=== PATIENT | female | born 1970 | race Caucasian/White ===

== ENCOUNTER 2016-05-10 12:54 | Emergency (ER) | payer OTHER ==
[~2016-05-10] VITALS: Ht 165.1 cm; Wt 104.0 kg
[~2016-05-10 12:54] MED LIST: ANT25 PO; DEXT-163 PO; KFL/250 PO; ONDA4TAB10 SL; SALI1SPR3
[2016-05-10 12:55] VITALS: TEMP 37.1; Ht 165.1 cm; Wt 104.0 kg
--- NOTE | 2016-05-10 13:15 | EMERGENCY ROOM VISIT NOTE ---
History Report prepared by Rosalie: Maryan Menezes Under the Supervision of: Dr. David Ornelas M.D. First contact with patient: 13:02 Chief Complaint: ABDOMINAL PAIN Stated Complaint: BURNING IN STOMACH/BLADDER, FACIAL REDNESS History of Present Illness The patient is a 45 year old female who presents to the Emergency Room with complaints of persistent abdominal pain that began several days ago. She currently rates her discomfort as a 6/10 in severity and describes her discomfort as a burning. The patient states that she was recently placed on Macrobid for a UTI. She states that since she has been on the antibiotics, she has been experiencing abdominal burning that radiates from her abdomen up through her nose. The patient states that she has been on 5-6 different antibiotics recently. She additionally notes facial redness. The patient states that occasionally she experiences the discomfort after eating. She states that she has been taking medications for the past 3-4 days for GERD. The patient denies any history of a hysterectomy and notes that she still is having normal menstrual cycles. Source of History: patient Onset: several days Position: abdomen Symptom Intensity: 6/10 Quality: burning Timing: other (persistent) Modifying Factors (Worsening): eating Note: Associated Symptoms: facial redness Review of Systems All systems have been listed, reviewed, and are negative other than those previously mentioned. Please see Additional Medical History Sheet. Past Medical & Surgical Medical Problems: (1) Cervical strain (2) UTI (urinary tract infection) Family History No pertinent family history Social History Smoking Status: Former Smoker Marital Status: single Occupation Status: unemployed Current/Historical Medications Scheduled Nitrofurantoin Monohyd Macrocr (Macrobid), 100 MG PO BID Omeprazole (Prilosec), 20 MG PO DAILY Scheduled PRN Diclofenac (Voltaren), 75 MG PO BID PRN for Pain Meclizine HCl (Meclizine HCl), 25 MG PO TID PRN for Dizziness or Vertigo Ondasetron Odt (Zofran Odt), 4 MG SL Q4 PRN for nausea Saline (Saline Nasal [place]), 1 SPRAY NA UD PRN for Nasal Congestion Allergies Coded Allergies: Ciprofloxacin (Unverified Allergy, Severe, DIZZY, 04/26/16) Fluticasone (Unverified Allergy, Severe, SEVERE BURNING, 04/26/16) Physical Exam Vital Signs Date Time Temp Pulse Resp B/P Pulse Ox O2 Delivery O2 Flow Rate FiO2 05/10/16 14:51 86 18 127/81 100 05/10/16 12:55 37.1 88 18 158/96 94 Room Air Physical Exam GENERAL: Patient awake, alert, oriented x 3. Patient follows commands. Patient does not appear toxic. Patient is adequately hydrated and well- nourished. SKIN: No erythema, pallor, cyanosis or rash HEENT: Normal head, pupils equal, reactive to light and accommodation. LUNGS: Clear to auscultation. No wheezes, no rales, no rhonchi. HEART: No murmurs. No gallops. No rubs ABDOMEN: Obese, soft, nontender. No masses, no rebound, no hepatomegaly or splenomegaly. EXTREMITIES: No signs of trauma or infection. NEUROLOGIC: Cranial nerves II-XII within normal limits. No gross motor sensory function deficits. Medical Decision & Procedures Laboratory Results 05/10/16 13:21 05/10/16 13:21 Test 05/10/16 13:15 05/10/16 13:21 Urine Color YELLOW Urine Appearance CLOUDY (CLEAR) Urine pH 5.0 (4.5-7.5) Urine Specific [place] 1.002 (1.000-1.030) Urine Protein NEG (NEG) Urine Glucose (UA) NEG (NEG) Urine Ketones 1+ (NEG) Urine Occult Blood 2+ (NEG) Urine Nitrite NEG (NEG) Urine Bilirubin NEG (NEG) Urine Urobilinogen NEG (NEG) Urine Leukocyte Esterase NEG (NEG) Urine WBC (Auto) 1-5 /hpf (0-5) Urine RBC (Auto) 0-4 /hpf (0-4) Urine Hyaline Casts (Auto) 0 /lpf (0-5) Urine Epithelial Cells (Auto) >30 /lpf (0-5) Urine Bacteria (Auto) NEG (NEG) Urine Test NEG (NEG) Red Blood Count 4.51 M/uL (4.2-5.4) Mean Corpuscular Volume 92.9 fL (80-100) Mean Corpuscular Hemoglobin 32.2 pg (25-34) Mean Corpuscular Hemoglobin Concent 34.6 g/dl (32-36) RDW Standard Deviation 46.0 fL (36.4-46.3) RDW Coefficient of Variation 13.5 % (11.5-14.5) Mean Platelet Volume 9.7 fL (7.4-10.4) Anion Gap 10.0 mmol/L (3-11) Est Creatinine Clear Calc Drug Dose 94.5 ml/min Estimated GFR () 90.1 Estimated GFR (Non- 77.7 BUN/Creatinine Ratio 11.0 (10-20) Calcium Level 9.1 mg/dl (8.5-10.1) Lipase 141 U/L (73-393) Laboratory results as stated above per my review. ED Course 1302: Past medical records reviewed. The patient was evaluated in room A3. A complete history and physical examination was performed. 1432: I reevaluated the patient and she is resting comfortably. I discussed the exam findings with her and I discussed the treatment plan. She verbalized complete understanding and agreement. She is ready to go home. Medical Decision Nurses notes reviewed. Medical history sheet reviewed. Differential diagnosis includes but is not limited to: GERD, pancreatitis, UTI. Multiple labs and urinalysis were obtained. Please see above. The patient does not appear to have an active urinary tract infection. She was instructed to complete the course of nitrofurantoin. I believe the patient's symptoms are most related to GERD. The patient is currently taking omeprazole and will continue that medication. She was told that she can take liquid Mylanta or Maalox in addition if symptoms persist. The patient was also instructed to follow-up with family physician. Impression Primary Impression: GERD (gastroesophageal reflux disease) Scribe Attestation The scribe's documentation has been prepared under my direction and personally reviewed by me in its entirety. I confirm that the note above accurately reflects all work, treatment, procedures, and medical decision making performed by me. Departure Information Dispostion Home / Self-Care Referrals Seth Rodriguez M.D. (PCP) Forms Call Back Authorization, HOME CARE DOCUMENTATION FORM, IMPORTANT VISIT INFORMATION, [facility] Patient Instructions A Signature Page Additional Instructions 1 tablespoon of Mylanta II or Maalox Plus between meals and not with any other medications. Follow-up with your family physician within the next 14 days. Increase omeprazole to twice a day. Do not take Voltaren/Diclofenac.
[2016-05-10 13:28] LABS: URINE APPEARANCE CLOUDY (CLEAR); URINE BILIRUBIN NEG (NEG); URINE COLOR YELLOW; URINE EPITHELIAL CELL AUTO >30 /lpf (0-5); URINE NITRITE NEG (NEG); URINE SPECIFIC GRAVITY 1.002 (1.000-1.030); UROBILINOGEN NEG (NEG); ZZUR CULT IF INDIC CLEAN CATCH NO
[2016-05-10 13:29] LABS: MANUAL MICROSCOPIC REQUIRED? NO; REVIEW REQ? NO
[2016-05-10] MEDS ORDERED: NITR-5 PO (13:30)
[2016-05-10 13:31] LABS: HEMATOCRIT 41.9 % (37-47); MEAN CELL VOLUME 92.9 fL (80-100); MEAN CORPUSCULAR HEMOGLOBIN 32.2 pg (25-34); MEAN CORPUSCULAR HGB CONC 34.6 g/dl (32-36); MEAN PLATELET VOLUME 9.7 fL (7.4-10.4); PLATELET COUNT 306 K/uL (130-400); RED BLOOD COUNT 4.51 M/uL (4.2-5.4); WHITE BLOOD COUNT 9.32 K/uL (4.8-10.8)
[2016-05-10 13:49] LABS: CALCIUM 9.1 mg/dl (8.5-10.1); CREATININE 0.89 mg/dl (0.60-1.20); POTASSIUM 3.7 mmol/L (3.5-5.1)
[2016-05-10 14:51] VITALS: BP 127/81; PULSE 86; O2SAT 100
[2016-05-16] MEDS ORDERED: PRLSR20 PO (10:55)
[2016-05-16] MEDS ORDERED: DICL-201 PO (16:35)
[2016-12-01] MEDS ORDERED: LPT10 PO (12:46)
== END 2016-05-10 14:53 | disposition home or self-care (01) ==
LOC: C.EDB 12:54 → C.EDA 14:53
DX: R10.9 Unspecified abdominal pain (principal); K21.9 Gastro-esophageal reflux disease without esophagitis; Z87.891 Personal history of nicotine dependence

== ENCOUNTER 2016-05-16 19:23 | Emergency (ER) | payer OTHER ==
[~2016-05-16] VITALS: Ht 162.6 cm; Wt 106.0 kg
[~2016-05-16 19:23] MED LIST changes: -DEXT-163 PO; +DICL-201 PO; -KFL/250 PO; +NITR-5 PO; +PRLSR20 PO
[2016-05-16 19:25] VITALS: TEMP 36.7; Ht 162.6 cm; Wt 106.0 kg
[2016-05-16] MEDS ORDERED: SODIUM CHLORIDE 0.9% 1000ML 1,000 ML IV STA (19:36)
[2016-05-16] MEDS ORDERED: KETOROLAC TROMETHAMINE 30 MG/ML VIAL IV STA (19:36)
[2016-05-16 19:53] LABS: BASO % 0.3 %; BASO ABS # 0.03 K/uL (0-0.2); COMPLETE YES; EOS % 1.4 %; IG% 0.6 %; LYMPH % 18.6 %; LYMPH ABS # 1.93 K/uL (1.2-3.4); MEAN CELL VOLUME 93.7 fL (80-100); MEAN CORPUSCULAR HEMOGLOBIN 31.4 pg (25-34); MEAN CORPUSCULAR HGB CONC 33.5 g/dl (32-36); MEAN PLATELET VOLUME 9.6 fL (7.4-10.4); MONO % 13.2 %; NEUT % 65.9 %; PLATELET COUNT 276 K/uL (130-400); RED BLOOD COUNT 4.27 M/uL (4.2-5.4); WHITE BLOOD COUNT 10.35 K/uL (4.8-10.8)
[2016-05-16 20:11] LABS: BUN/CREATININE RATIO 22.1 (10-20); CALCIUM 8.6 mg/dl (8.5-10.1); CREATININE 0.91 mg/dl (0.60-1.20); POTASSIUM 4.4 mmol/L (3.5-5.1)
[2016-05-16] MEDS ORDERED: ONDA4TAB46 PO (20:26)
[2016-05-16] MEDS ORDERED: MECL1TAB42 PO (20:26)
[2016-05-16] MEDS ORDERED: ACET-1256 PO (20:27)
[2016-05-16] MEDS ORDERED: NAPR1TAB9 PO (20:27)
[2016-05-16 20:33] LABS: URINE APPEARANCE CLEAR (CLEAR); URINE BILIRUBIN NEG (NEG); URINE COLOR YELLOW; URINE EPITHELIAL CELL AUTO 20-30 /lpf (0-5); URINE NITRITE NEG (NEG); URINE SPECIFIC GRAVITY 1.019 (1.000-1.030); UROBILINOGEN NEG (NEG); ZZUR CULT IF INDIC CLEAN CATCH NO
[2016-05-16 20:37] LABS: MANUAL MICROSCOPIC REQUIRED? NO; REVIEW REQ? NO
[2016-05-16] MEDS ORDERED: OPTIRAY 320 IV PRN (21:00)
--- NOTE | 2016-05-16 21:16 | DIAGNOSTIC IMAGING REPORT ---
CT SCAN OF THE ABDOMEN AND PELVIS WITH IV CONTRAST CLINICAL HISTORY: Left lower quadrant abdominal pain. Dysuria. COMPARISON STUDY: Abdominal CT dated 04/24/2015. TECHNIQUE: Following the IV administration of 93 cc of Optiray 320, CT scan of the abdomen and pelvis is performed from the lung bases to the proximal femora. Images are reviewed in the axial, sagittal, and coronal planes. IV contrast was administered without complication. Automated dose control exposure was utilized. The examination is degraded by large body habitus, and by streak artifact from the body wall abutting the CT gantry. CT DOSE: 834.31 mGy.cm FINDINGS: Lung bases: The heart is normal in size and without pericardial effusion. The lung bases are clear. Liver: The contrast-enhanced liver is enlarged, measuring 19.5 cm in length. The liver demonstrates diffusely diminished attenuation consistent with hepatic steatosis. There is no intrahepatic biliary ductal dilatation. The hepatic veins and portal veins are patent. Gallbladder: Unremarkable. Spleen: Normal in size and attenuation. Pancreas: Unremarkable. Adrenal glands: Unremarkable. Kidneys: The contrast enhanced kidneys are normal in size and without hydronephrosis. The kidneys enhance symmetrically. Abdominal vasculature: The abdominal aorta is normal in course and caliber. Bowel: The small bowel and colon are normal in course and caliber. There is mild diverticulosis of the descending colon without CT evidence of acute diverticulitis. There is mild fecal retention in the right colon. The appendix is well-visualized and normal. Peritoneum: There is no intraperitoneal free air or abdominal ascites. Lymphadenopathy: None. Pelvic viscera: The bladder, uterus, and adnexa are normal as visualized. There are small bilateral ovarian follicles. Skeletal structures: There is mild lumbosacral spondylosis. Sclerotic change is noted in the right sacroiliac joint. No lytic or blastic lesions are seen. IMPRESSION: 1. There are no acute infectious or inflammatory findings in the abdomen or pelvis. 2. Hepatomegaly and hepatic steatosis. 3. Mild colonic diverticulosis without CT evidence of acute diverticulitis. Electronically signed by: Manas Hernandez M.D. 05/16/2016 9:14 PM Dictated Date/Time: 05/16/2016 9:09 PM
[2016-05-16] MEDS ORDERED: CEPH500C PO (21:25)
[2016-05-16] MEDS ORDERED: CEPHALEXIN MONOHYDRATE 250 MG CAP PO ONE (21:30)
--- NOTE | 2016-05-16 21:41 | EMERGENCY ROOM VISIT NOTE ---
History Report prepared by Amyibcris: Yolanda Babb Under the Supervision of: Dr. Juni Acevedo D.O. First contact with patient: 19:28 Chief Complaint: ABDOMINAL PAIN Stated Complaint: ABDOMINAL PAIN, BURNING DURING URINATION Nursing Triage Summary: pt c/o abd pain and burning with urination, dx yesterday with yeast infection History of Present Illness The patient is a 45 year old female who presents to the Emergency Room with complaints of persistent abdominal pain for the past few days. She rates her pain as a 5/10. She reports she was diagnosed at a local [facility] clinic with a yeast infection yesterday. She was prescribed Diflucan, which she has been taking. She admits to dysuria and increased urinary frequency over the past few days. She denies any gross hematuria but admits to some white vaginal discharge. She reports she has also experienced diarrhea, and her last bowel movement was this morning. She denies any history of previous abdominal surgeries. The patient admits she has experienced urinary infections in the past and states her symptoms do feel similar. She admit to urinary urgency, frequency and dysuria. The patient denies any headache, change in vision, fevers, chest pain, shortness of breath, nausea, vomiting, melena or rashes. Source of History: patient Onset: few days APPLICATION LEAD Position: abdomen Symptom Intensity: 5/10 Timing: other (persistent) Associated Symptoms: + diarrhea, + urinary symptoms, No SOB, No chest pain, No fevers, No headache, No melena, No nausea, No rash, No vomiting Review of Systems See HPI for pertinent positives & negatives. A total of 10 systems reviewed and were otherwise negative. Past Medical & Surgical Medical Problems: (1) Cervical strain (2) UTI (urinary tract infection) Family History No pertinent family history Social History Smoking Status: Never Smoker Alcohol Use: none Drug Use: none Marital Status: single Housing Status: lives alone Occupation Status: unemployed Current/Historical Medications Scheduled Acetaminophen (Tylenol), 1,000 MG PO PRN UD Cephalexin Monohydrate (Keflex), 500 MG PO QID Naproxen (Aleve), 220 MG PO PRN UD Omeprazole (Prilosec), 20 MG PO DAILY Scheduled PRN Diclofenac (Voltaren), 75 MG PO BID PRN for Pain Meclizine Hcl (Meclizine Hcl), 1 TAB PO TID PRN for Dizziness or Vertigo Ondansetron Hcl (Zofran), 4 MG PO Q4H PRN for Nausea Allergies Coded Allergies: Ciprofloxacin (Unverified Allergy, Severe, DIZZY, 04/26/16) Fluticasone (Unverified Allergy, Severe, SEVERE BURNING, 04/26/16) Physical Exam Vital Signs Date Time Temp Pulse Resp B/P Pulse Ox O2 Delivery O2 Flow Rate FiO2 05/16/16 19:25 36.7 86 18 137/83 97 Room Air Physical Exam GENERAL: Patient is sitting up in bed, alert, disheveled appearing, well nourished, no distress, non-toxic EYE EXAM: normal conjunctiva OROPHARYNX: Patient is edentulous, no exudate, no erythema, lips, buccal mucosa , and tongue normal and mucous membranes are moist NECK: supple, no nuchal rigidity, no adenopathy, non-tender LUNGS: Clear to auscultation. Normal chest wall mechanics HEART: no murmurs, S1 normal and S2 normal ABDOMEN: abdomen soft, non-tender, normo-active bowel sounds, no masses, no rebound or guarding. BACK: Back is symmetrical on inspection and there is no deformity, no midline tenderness, no CVA tenderness. SKIN: no rashes and no bruising PELVIC: Normal external genitalia, normal vaginal mucosa, cervical os is closed without discharge, no adnexal tenderness. UPPER EXTREMITIES: upper extremities are grossly normal. LOWER EXTREMITIES: No pitting edema. NEURO EXAM: Normal sensorium, cranial nerves II-XII grossly intact, normal speech, no gross weakness of arms, no gross weakness of legs. Gross sensation intact. Medical Decision & Procedures ER Provider Diagnostic Interpretation: This CT scan was reviewed and interpreted by the radiologist and reviewed by myself. CT SCAN OF THE ABDOMEN AND PELVIS WITH IV CONTRAST IMPRESSION: 1. There are no acute infectious or inflammatory findings in the abdomen or pelvis. 2. Hepatomegaly and hepatic steatosis. 3. Mild colonic diverticulosis without CT evidence of acute diverticulitis. Electronically signed by: Manas Hernandez M.D. 05/16/2016 9:14 PM Laboratory Results 05/16/16 19:45 Red Blood Count 4.27, Mean Corpuscular Volume 93.7, Mean Corpuscular Hemoglobin 31.4, Mean Corpuscular Hemoglobin Concent 33.5, Mean Platelet Volume 9.6, Neutrophils (%) (Auto) 65.9, Lymphocytes (%) (Auto) 18.6, Monocytes (%) (Auto) 13.2, Eosinophils (%) (Auto) 1.4, Basophils (%) (Auto) 0.3, Neutrophils # (Auto ) 6.81, Lymphocytes # (Auto) 1.93, Monocytes # (Auto) 1.37, Eosinophils # (Auto ) 0.15, Basophils # (Auto) 0.03 05/16/16 19:45 Test 05/16/16 19:45 05/16/16 20:07 White Blood Count 10.35 K/uL (4.8-10.8) Red Blood Count 4.27 M/uL (4.2-5.4) Hemoglobin 13.4 g/dL (12.0-16.0) Hematocrit 40.0 % (37-47) Mean Corpuscular Volume 93.7 fL (80-100) Mean Corpuscular Hemoglobin 31.4 pg (25-34) Mean Corpuscular Hemoglobin Concent 33.5 g/dl (32-36) Platelet Count 276 K/uL (130-400) Mean Platelet Volume 9.6 fL (7.4-10.4) Neutrophils (%) (Auto) 65.9 % Lymphocytes (%) (Auto) 18.6 % Monocytes (%) (Auto) 13.2 % Eosinophils (%) (Auto) 1.4 % Basophils (%) (Auto) 0.3 % Neutrophils # (Auto) 6.81 K/uL (1.4-6.5) Lymphocytes # (Auto) 1.93 K/uL (1.2-3.4) Monocytes # (Auto) 1.37 K/uL (0.11-0.59) Eosinophils # (Auto) 0.15 K/uL (0-0.5) Basophils # (Auto) 0.03 K/uL (0-0.2) RDW Standard Deviation 47.1 fL (36.4-46.3) RDW Coefficient of Variation 13.8 % (11.5-14.5) Immature Granulocyte % (Auto) 0.6 % Immature Granulocyte # (Auto) 0.06 K/uL (0.00-0.02) Anion Gap 10.0 mmol/L (3-11) Est Creatinine Clear Calc Drug Dose 91.8 ml/min Estimated GFR () 87.7 Estimated GFR (Non- 75.7 BUN/Creatinine Ratio 22.1 (10-20) Calcium Level 8.6 mg/dl (8.5-10.1) Total Bilirubin 0.3 mg/dl (0.2-1) Direct Bilirubin 0.1 mg/dl (0-0.2) Aspartate Amino Transf (AST/SGOT) 15 U/L (15-37) Alanine Aminotransferase (ALT/SGPT) 18 U/L (12-78) Alkaline Phosphatase 71 U/L (45-117) Total Protein 6.8 gm/dl (6.4-8.2) Albumin 3.6 gm/dl (3.4-5.0) Lipase 201 U/L (73-393) Urine Color YELLOW Urine Appearance CLEAR (CLEAR) Urine pH 5.0 (4.5-7.5) Urine Specific [place] 1.019 (1.000-1.030) Urine Protein NEG (NEG) Urine Glucose (UA) NEG (NEG) Urine Ketones NEG (NEG) Urine Occult Blood NEG (NEG) Urine Nitrite NEG (NEG) Urine Bilirubin NEG (NEG) Urine Urobilinogen NEG (NEG) Urine Leukocyte Esterase NEG (NEG) Urine WBC (Auto) 1-5 /hpf (0-5) Urine RBC (Auto) 0-4 /hpf (0-4) Urine Hyaline Casts (Auto) 0 /lpf (0-5) Urine Epithelial Cells (Auto) 20-30 /lpf (0-5) Urine Bacteria (Auto) NEG (NEG) Urine Test NEG (NEG) Laboratory results per my review. Medications Administered Medications (Trade) Dose Ordered Sig/Tamie Route Start Time Stop Time Status Last Admin Dose Admin Ketorolac Tromethamine 30 mg 30 mg NOW STAT IV 05/16/16 19:36 05/16/16 19:37 DC 05/16/16 20:04 30 MG Sodium Chloride (Nss 1000ml) 1,000 ml @ 999 mls/hr Q1H1M STAT IV 05/16/16 19:36 05/16/16 20:36 DC 05/16/16 19:36 999 MLS/HR ED Course ED COURSE: Vital signs were reviewed and showed normal vital signs. The patients medical record was reviewed The above diagnostic studies were performed and reviewed. ED treatments and interventions as stated above. 1933: The patient was evaluated in room B4. A complete history and physical examination was performed. 1935: NSS 1000 ml @ 999 mls/hr IV, Toradol 30 mg IV. 2129: Keflex Cap 500 mg PO. 2134: Upon reevaluation, the patient is feeling much better. I discussed my findings with the patient and she understands and agrees with the treatment plan. Based on the patients age, coexisting illnesses, exam and lab findings the decision to treat as an outpatient was made. The patient remained stable while under my care. The patient appeared well at the time of discharge. Medical Decision Differential diagnoses includes but is not limited to gastritis, peptic ulcer disease, GERD, gallbladder disease, pancreatitis, small bowel obstruction, acute coronary syndrome, pericarditis, ischemic bowel, irritable bowel disease, irritable bowel syndrome, appendicitis, diverticulitis, malignancy, hernia, urinary tract infection, torsion, /ectopic , perforation, trauma, infectious. Patient is a 45 her old female who presents the ER for lower abdominal pain. She has that she was seen yesterday for this and treated with Diflucan for pelvic infection. She was to dysuria, urgency and frequency. Her abdominal exam is benign. Labs show no significant leukocytosis or anemia. BMP along with LFTs, bilirubin and lipase were unremarkable. UA was clean. was negative. With her unremarkable pelvic exam I question whether it is normal due to recent treatment or she never truly had an infection. With her urinary symptoms I did elect to treat her with a short course of Keflex. CT of her abdomen pelvis was unremarkable. Patient was discharged and treated for UTI with urinary symptoms. Discussed with Pt concerning signs and symptoms to watch out for. Pt was instructed to follow up with their PCP and discussed with the patient their option to return to the ED at anytime for persistent or worsening symptoms. The appropriate anticipatory guidance and out-patient management, including indications for return to the emergency department, were explained at length to the patient and understood. Impression Primary Impression: Lower abdominal pain Additional Impression: Dysuria Scribe Attestation The scribe's documentation has been prepared under my direction and personally reviewed by me in its entirety. I confirm that the note above accurately reflects all work, treatment, procedures, and medical decision making performed by me. Departure Information Dispostion Home / Self-Care Prescriptions Cephalexin Monohydrate (Keflex) 500 Mg Cap 500 MG PO QID for 3 Days, #12 CAP Prov: Juni Acevedo, 05/16/16 Referrals Seth Rodriguez M.D. (PCP) Patient Instructions Abdominal Pain - [facility], Dysuria, [facility] Additional Instructions Please follow up with your primary care doctor with in the next 24 hours. Any worsening of your symptoms, please return to the ED immediately. This includes fevers greater than 100.4, worsening abdominal pain, persistent nausea vomiting , bright red blood per rectum, or any other concerning signs or symptoms from your stand point. Please take antibiotics as prescribed. Problem Qualifiers
[2016-05-16 21:47] VITALS: BP 168/120; PULSE 87; O2SAT 99
[2016-05-20 01:35] LABS: CHLAMYDIA TRACH RNA*** NOT DETECTED (NOT DETECTED); GC (NEIS GONORRHOEAE)RNA** NOT DETECTED (NOT DETECTED)
[2016-12-01] MEDS ORDERED: LPT10 PO (12:46)
== END 2016-05-16 21:55 | disposition home or self-care (01) ==
LOC: C.EDB 19:24
DX: R10.30 Lower abdominal pain, unspecified (principal); R30.0 Dysuria; Z87.440 Personal history of urinary (tract) infections; Z79.899 Other long term (current) drug therapy; Z87.828 Personal history of other (healed) physical injury and trauma; Z88.2 Allergy status to sulfonamides

== ENCOUNTER 2016-11-29 10:05 | Observation (INO) | payer OTHER ==
[~2016-11-29] VITALS: Ht 157.5 cm; Wt 120.7 kg
[~2016-11-29 10:05] MED LIST changes: +ACET-1256 PO; -ANT25 PO; +MECL1TAB42 PO; +NAPR1TAB9 PO; -NITR-5 PO; -ONDA4TAB10 SL; +ONDA4TAB46 PO; -SALI1SPR3
[2016-11-29 10:49] LABS: HEMATOCRIT 40.7 % (37-47); MEAN CELL VOLUME 93.8 fL (80-100); MEAN CORPUSCULAR HEMOGLOBIN 31.1 pg (25-34); MEAN CORPUSCULAR HGB CONC 33.2 g/dl (32-36); MEAN PLATELET VOLUME 10.4 fL (7.4-10.4); PLATELET COUNT 259 K/uL (130-400); RED BLOOD COUNT 4.34 M/uL (4.2-5.4); WHITE BLOOD COUNT 8.54 K/uL (4.8-10.8)
--- NOTE | 2016-11-29 10:51 | DIAGNOSTIC IMAGING REPORT ---
CHEST ONE VIEW PORTABLE CLINICAL HISTORY: Chest pain. COMPARISON STUDY: Chest radiograph June 13, 2015. FINDINGS: Lung volumes are normal. No pneumothorax or pleural effusion is identified. Pulmonary vascularity is normal. No consolidation is identified. Cardiomediastinal silhouette is normal. IMPRESSION: No acute cardiopulmonary findings. Electronically signed by: Casimiro Diamond M.D. 11/29/2016 10:50 AM Dictated Date/Time: 11/29/2016 10:49 AM
[2016-11-29] MEDS ORDERED: NITROGLYCERIN 0.4 MG SL PER TAB CHARGE SL STA (10:59)
[2016-11-29] MEDS ORDERED: CLR10 PO (11:00)
[2016-11-29 11:04] LABS: PARTIAL THROMBOPLASTIN RATIO 1.1
--- NOTE | 2016-11-29 11:07 | EMERGENCY ROOM VISIT NOTE ---
History Report prepared by Amyibcris: Yolanda Babb Under the Supervision of: Dr. Mere Mosley D.O. First contact with patient: 10:52 Chief Complaint: CHEST PAIN Stated Complaint: PAIN IN CHEST AREA,STINGING IN LEFT ARM Nursing Triage Summary: pt c/o mid chest pain that began yesterday and also has tingling in her left arm, went to [facility] today and blood pressure was high. History of Present Illness The patient is a 46 year old female who presents to the Emergency Room with complaints of persistent chest pain that started yesterday. She describes the pain as being located in the middle of her chest and notes it radiates into her neck. She rates her discomfort as a 4.5/10 in severity. 324 mg of Aspirin provided minimal relief. Her left arm also feels "numb and tingly". The patient states she has never experienced this type of pain before. She reports she went to a local urgent care clinic this morning and her blood pressure was found to be elevated, so she was referred to the ED for further evaluation. The patient denies any previous history of hypertension. She admits her Mother from angina when she was in her 70's. Source of History: patient Onset: yesterday Position: chest Symptom Intensity: 4.5/10 Timing: other (persistent) Modifying Factors (Relieving): other (Aspirin) Associated Symptoms: + numbness (left arm) Review of Systems See HPI for pertinent positives & negatives. A total of 10 systems reviewed and were otherwise negative. Past Medical & Surgical Medical Problems: (1) Cervical strain (2) GERD (gastroesophageal reflux disease) (3) Obesity (4) Seasonal allergic rhinitis (5) UTI (urinary tract infection) Surgical Problems: (1) Status post tooth extraction Family History Heart disease Social History Smoking Status: Former Smoker Alcohol Use: none Drug Use: none Marital Status: single Housing Status: lives alone Occupation Status: unemployed Current/Historical Medications Scheduled Loratadine (Claritin), 10 MG PO DAILY Omeprazole Magnesium (Prilosec Otc), 1 TAB PO DAILY Scheduled PRN [Robitussin], 1 EA PO Q6H PRN for cold symptoms Allergies Coded Allergies: Ciprofloxacin (Unverified Allergy, Severe, DIZZY, 11/29/16) Fluticasone (Unverified Allergy, Severe, SEVERE BURNING, 11/29/16) Sulfamethoxazole w/Trimethoprim (Unverified Allergy, Unknown, ., 11/29/16) Physical Exam Vital Signs Date Time Temp Pulse Resp B/P (MAP) Pulse Ox O2 Delivery O2 Flow Rate FiO2 11/29/16 13:13 81 11/29/16 13:10 94 16 140/85 100 Room Air 11/29/16 13:05 Room Air 11/29/16 12:09 85 139/83 98 11/29/16 11:55 94 15 146/87 95 Room Air 11/29/16 11:46 80 17 157/103 96 Room Air 11/29/16 10:20 80 11/29/16 10:08 36.7 91 20 152/94 96 Room Air Physical Exam HEENT: Head - normocephalic and atraumatic Pupils are equal, round, and reactive to light. Extraocular eye muscles are intact, and sclera are anicteric. Nose - moist nasal mucosa without discharge. Mouth - moist buccal mucosa. Oropharynx is nonerythematous and there is no tonsillar exudate or edema noted. Neck: Supple; no JVD, nuchal rigidity, cervical lymphadenopathy. Chest: Mild reproducible discomfort over the upper sternum. Heart: Regular rate and rhythm. There is a normal S1 and S2 with no murmurs, clicks, or gallops appreciated. Lungs: Clear to auscultation bilaterally with no wheezes, rales, or rhonchi. Abdomen: Soft, mild pain to palpation in the LLQ, nondistended, with good bowel sounds. There are no palpable pulsatile masses or hepatosplenomegaly. There is no guarding, rigidity, or rebound noted. Extremities: Trace edema in legs. No evidence of cyanosis or clubbing. There are easily palpable peripheral pulses. Skin: warm and dry with good turgor and no rashes. Medical Decision & Procedures ER Provider Diagnostic Interpretation: Radiology results as stated below per my review and the radiologist's interpretation: CHEST ONE VIEW PORTABLE CLINICAL HISTORY: Chest pain. COMPARISON STUDY: Chest radiograph June 13, 2015. FINDINGS: Lung volumes are normal. No pneumothorax or pleural effusion is identified. Pulmonary vascularity is normal. No consolidation is identified. Cardiomediastinal silhouette is normal. IMPRESSION: No acute cardiopulmonary findings. Electronically signed by: Casimiro Diamond M.D. 11/29/2016 10:50 AM Laboratory Results 11/29/16 10:30 11/29/16 10:30 Test 11/29/16 10:29 11/29/16 10:30 Bedside Troponin I < 0.030 ng/ml (0-0.045) Red Blood Count 4.34 M/uL (4.2-5.4) Mean Corpuscular Volume 93.8 fL (80-100) Mean Corpuscular Hemoglobin 31.1 pg (25-34) Mean Corpuscular Hemoglobin Concent 33.2 g/dl (32-36) RDW Standard Deviation 46.2 fL (36.4-46.3) RDW Coefficient of Variation 13.4 % (11.5-14.5) Mean Platelet Volume 10.4 fL (7.4-10.4) Prothrombin Time 11.0 SECONDS (9.0-12.0) Prothromb Time International Ratio 1.0 (0.9-1.1) Activated Partial Thromboplast Time 27.3 SECONDS (21.0-31.0) Partial Thromboplastin Ratio 1.1 Anion Gap 7.0 mmol/L (3-11) Est Creatinine Clear Calc Drug Dose 99.3 ml/min Estimated GFR () 91.9 Estimated GFR (Non- 79.3 BUN/Creatinine Ratio 17.9 (10-20) Calcium Level 9.2 mg/dl (8.5-10.1) Total Bilirubin 0.6 mg/dl (0.2-1) Aspartate Amino Transf (AST/SGOT) 9 U/L (15-37) Alanine Aminotransferase (ALT/SGPT) 19 U/L (12-78) Alkaline Phosphatase 68 U/L (45-117) Total Protein 7.2 gm/dl (6.4-8.2) Albumin 3.8 gm/dl (3.4-5.0) Globulin 3.4 gm/dl (2.5-4.0) Albumin/Globulin Ratio 1.1 (0.9-2) Laboratory results per my review. Medications Administered Medications (Trade) Dose Ordered Sig/Tamie Route Start Time Stop Time Status Last Admin Dose Admin Nitroglycerin (Nitrostat Tab) 0.4 mg Q5M STAT SL 11/29/16 10:59 11/29/16 11:00 DC 11/29/16 11:47 0.4 MG Procedure Nitroglycerin SL. ECG Indication: chest pain Rate (beats per minute): 84 Rhythm: normal sinus Findings: no acute ischemic change, no ectopy ED Course 1054: Past medical records reviewed. The patient was evaluated in room C1. A complete history and physical exam was performed. 1059: Nitroglycerin 0.4 mg SL. 1142: I reevaluated the patient. She has not received the Nitroglycerin yet 1205: Nursing informed me the patient's chest pressure is now 0 after receiving 2 Nitroglycerin tablets. 1210: I reevaluated the patient. She is feeling better and resting comfortably. I discussed my recommendation that she remain in the hospital for further evaluation and management and she verbalized complete understanding and agreement. 1221: I discussed the patients case with Tamika Taylor. The patient will be further evaluated. Medical Decision I attest that I have personally reviewed the patient's current medication list. Patient was found to have an elevated blood pressure and was referred to the hospital medicine team for recheck and further treatment. The patient is a 46 year old female who presents to the ED with chest pain. The differential diagnoses considered include: uncontrolled hypertension, hyperglycemia, cardiac ischemia, angina, GERD and costochondritis. Lab results show no leukocytosis, stable H&H, normal renal function, normal Glucose, normal LFT's, negative Troponin and normal COAG's. The patient presents with left-sided chest discomfort which radiates to her left arm and left neck. The discomfort was relieved with sublingual nitroglycerin. [facility] Consults Time Called: 1215 Consulting Physician: Tamika Taylor Returned Call: 1221 I discussed the patients case with Tamika Taylor. The patient will be further evaluated. Impression Primary Impression: Left sided chest pain Scribe Attestation The scribe's documentation has been prepared under my direction and personally reviewed by me in its entirety. I confirm that the note above accurately reflects all work, treatment, procedures, and medical decision making performed by me. Departure Information Dispostion Being Evaluated By Hospitalist Referrals Seth Rodriguez M.D. (PCP) Patient Instructions My [facility]
[2016-11-29 11:11] LABS: BUN/CREATININE RATIO 17.9 (10-20); CALCIUM 9.2 mg/dl (8.5-10.1); CREATININE 0.87 mg/dl (0.60-1.20); POTASSIUM 3.7 mmol/L (3.5-5.1)
[2016-11-29 11:16] LABS: ALB/GLOB RATIO 1.1 (0.9-2); CKMB/CK RATIO 0.9 (0-3.0)
[2016-11-29 13:05] VITALS: Ht 157.5 cm; Wt 120.7 kg
[2016-11-29] MEDS ORDERED: POLYETHYLENE (MIRALAX) 17 GM PACK PO PRN (13:30)
[2016-11-29] MEDS ORDERED: MoRPHine SULFATE 2 MG/ML CARP IV PRN (13:30)
[2016-11-29] MEDS ORDERED: ACETAMINOPHEN 325 MG TAB PO PRN (13:30)
[2016-11-29] MEDS ORDERED: NITROGLYCERIN 0.4 MG SL PER TAB CHARGE SL PRN (13:30)
[2016-11-29] MEDS ORDERED: ONDANSETRON INJ 2 MG/ML 2 ML VIAL IV PRN (13:30)
[2016-11-29] MEDS ORDERED: OMEP20TA14 PO (13:35)
[2016-11-29] MEDS ORDERED: Robitussin PO (13:38)
[2016-11-29] MEDS ORDERED: IV FLUIDS COMPLETED PRN (14:00)
--- NOTE | 2016-11-29 14:17 | History and Physical ---
History & Physical Date & Time of Service: Nov 29, 2016 at 13:39 Chief Complaint: Pain In Chest Area,Stinging In Left Arm Primary Care Physician: Seth Rodriguez M.D. History of Present Illness Source: patient, clinic records, hospital records 46 yo F presents with two days of L anterior chest pain with radiation into her L neck and L arm. The pain began when she was scrubbing floors with her dad yesterday. She reports that it improved somewhat but did not completely resolve with rest. Then she noted that when she laid down to sleep last night the pain became heavier and caused her to not sleep well. She reports associated diaphoresis, lightheadedness, and SOB when laying flat. She denies palpitations, headache, vomiting, diarrhea, UTI symptoms, ear pain. She reports sore muscles in the area of her chest wall today. She reports some chronic sinus drainage since having her teeth pulled last fall and states that this causes her some nausea, which she has been experiencing recently. She also reports a sore throat for which she was seen at urgent care and had a throat swab performed. No group A strep was found by PCR. She reports some blurry vision which is improved today. She denies ever having chest pain in the past and has no known h/o CAD or stress test. She reports her mother had a h/o angina but no ID, and her mom's sister had an ID in her 60s, but there is no other family h/o early heart disease. She is a former smoker and is obese without HTN. BP in the ER is a little elevated today but review of BP as outpatient is normal. She does report a 15 pound weight gain over the past year and had some swelling in her ankles, for which her doctor advised her to stick to a lower salt diet. Past Medical/Surgical History Medical Problems: (1) GERD (gastroesophageal reflux disease) Status: Chronic (2) Obesity Status: Chronic (3) Seasonal allergic rhinitis Status: Chronic Surgical Problems: (1) Status post tooth extraction Status: Chronic Family History Heart disease Social History Smoking Status: Former Smoker Alcohol Use: none Drug Use: none Marital Status: single Housing status: lives alone Occupational Status: unemployed Immunizations History of Influenza Vaccine: No History of Tetanus Vaccine?: Yes Tetanus Immunization Date: September 03, 2016 History of Pneumococcal: No History of Hepatitis B Vaccine: No Multi-Drug Resistant Organisms History of MDRO: No Allergies Coded Allergies: Ciprofloxacin (Unverified Allergy, Severe, DIZZY, 11/29/16) Fluticasone (Unverified Allergy, Severe, SEVERE BURNING, 11/29/16) Sulfamethoxazole w/Trimethoprim (Unverified Allergy, Unknown, ., 11/29/16) Home Medications Scheduled Loratadine (Claritin), 10 MG PO DAILY Omeprazole Magnesium (Prilosec Otc), 1 TAB PO DAILY Scheduled PRN [Robitussin], 1 EA PO Q6H PRN for cold symptoms Review of Systems Constitutional: + sweats, No fever, No chills, No weight loss Eyes: + worsening of vision (vision blurred temporarily yesterday), + problem reported ENT: + sore throat, + dental problems Respiratory: + shortness of breath (when lying down), No cough Cardiovascular: + chest pain, No edema, No palpitations Abdomen: + pain, + nausea, No vomiting, No diarrhea Musculoskeletal: + muscle pain (L anterior chest) Genitourinary - Female: No dysuria, No urinary frequency, No urinary urgency, No urinary incontinence, No hematuria Neurologic: No numbness/tingling Psychiatric: No problem reported Endocrine: No excessive urination Allergic / Immunologic: No food allergies Physical Exam Vital Signs Date Time Temp Pulse Resp B/P (MAP) Pulse Ox O2 Delivery O2 Flow Rate FiO2 11/29/16 13:13 81 11/29/16 13:10 94 16 140/85 100 Room Air 11/29/16 13:05 Room Air 11/29/16 12:09 85 139/83 98 11/29/16 11:55 94 15 146/87 95 Room Air 11/29/16 11:46 80 17 157/103 96 Room Air 11/29/16 10:20 80 11/29/16 10:08 36.7 91 20 152/94 96 Room Air GEN: obese, in no acute distress, alert and appropriate HEENT: NC/AT, PERRL, normal sclerae, MMM, pharynx non-acute, tonsils are absent , posterior pharyngeal cobblestoning noted, no sinus TTP NECK: tender lymph nodes to palpation bilaterally that are not enlarged. CARDIO: reg rate, S1/2 heard without m/g/r, no edema, 2+ pulses throughout, L anterior chest wall tenderness and L anterior shoulder TTP LUNGS: CTA bilaterally, no crackles, rales or wheezes, good diaphragmatic excursion ABD: soft, non-tender, non-distended, no rebound or guarding, +BS, no CVA tenderness EXTREMITY: RP and DP palpable 2+ bilat, no LE swelling or edema, extremities are warm and well-perfused NEURO: CN 2-12 grossly intact, sensation intact throughout MUSC: 5/5 strength throughout, no focal deficits, hand embroiderer strength intact bilaterally SKIN: warm and dry Diagnostics Laboratory Results Results Past 24 Hours Test 11/29/16 10:29 11/29/16 10:30 Range/Units Bedside Troponin I < 0.030 0-0.045 ng/ml White Blood Count 8.54 4.8-10.8 K/uL Red Blood Count 4.34 4.2-5.4 M/uL Hemoglobin 13.5 12.0-16.0 g/dL Hematocrit 40.7 37-47 % Mean Corpuscular Volume 93.8 80-100 fL Mean Corpuscular Hemoglobin 31.1 25-34 pg Mean Corpuscular Hemoglobin Concent 33.2 32-36 g/dl RDW Standard Deviation 46.2 36.4-46.3 fL RDW Coefficient of Variation 13.4 11.5-14.5 % Platelet Count 259 130-400 K/uL Mean Platelet Volume 10.4 7.4-10.4 fL Prothrombin Time 11.0 9.0-12.0 SECONDS Prothromb Time International Ratio 1.0 0.9-1.1 Activated Partial Thromboplast Time 27.3 21.0-31.0 SECONDS Partial Thromboplastin Ratio 1.1 Sodium Level 141 136-145 mmol/L Potassium Level 3.7 3.5-5.1 mmol/L Chloride Level 109 98-107 mmol/L Carbon Dioxide Level 25 21-32 mmol/L Anion Gap 7.0 3-11 mmol/L Blood Urea Nitrogen 16 7-18 mg/dl Creatinine 0.87 0.60-1.20 mg/dl Est Creatinine Clear Calc Drug Dose 99.3 ml/min Estimated GFR () 91.9 Estimated GFR (Non- 79.3 BUN/Creatinine Ratio 17.9 10-20 Random Glucose 93 70-99 mg/dl Calcium Level 9.2 8.5-10.1 mg/dl Total Bilirubin 0.6 0.2-1 mg/dl Aspartate Amino Transf (AST/SGOT) 9 15-37 U/L Alanine Aminotransferase (ALT/SGPT) 19 12-78 U/L Alkaline Phosphatase 68 45-117 U/L Total Creatine Kinase 66 26-192 U/L Creatine Kinase MB 0.6 0.5-3.6 ng/ml Creatine Kinase MB Ratio 0.9 0-3.0 Total Protein 7.2 6.4-8.2 gm/dl Albumin 3.8 3.4-5.0 gm/dl Globulin 3.4 2.5-4.0 gm/dl Albumin/Globulin Ratio 1.1 0.9-2 Diagnostic Radiology CHEST ONE VIEW PORTABLE CLINICAL HISTORY: Chest pain. COMPARISON STUDY: Chest radiograph June 13, 2015. FINDINGS: Lung volumes are normal. No pneumothorax or pleural effusion is identified. Pulmonary vascularity is normal. No consolidation is identified. Cardiomediastinal silhouette is normal. IMPRESSION: No acute cardiopulmonary findings. EKG SR 84, no ST changes, no q waves. Impression Assessment and Plan 46 yo F with obesity presents with acute chest pain for two days that is constant and relieved with nitro in the ER. 1. Chest pain-will empirically treat as ACS and give ASA 325 (took at home), Lipitor 80mg and use nitro and morphine PRN symptoms. Monitor on telemetry and run serial cardiac enzymes. NPO p MN for stress test in am. Anterior tenderness to palpation makes muscle strain high on the differential. Also possible cause is GERD. Low risk for PE and no tachycardia or hypoxia. 2. Seasonal allergies-cont Claritin 3. GERD-Protonix Full code DVT proph: Lovenox Dispo-telemetry overnight, stress in am then home unless abnormal [facility] Hospital[facility] Level of Care Telemetry Advanced Directives Existing Living Will: No Existing Power of Power Hammer Operator: No Resuscitation Status FULL RESUSCITATION VTE Prophylaxis VTE Risk Assessment Done? Y/N: Yes Risk Level: Moderate Given or contraindicated: Enoxaparin (Lovenox)SQ Social Service Consult None Apply
[2016-11-29 14:59] VITALS: BP 169/94; PULSE 85; TEMP 36.7; O2SAT 99
[2016-11-29 16:00] VITALS: O2SAT 99
[2016-11-29] MEDS: ENOXAPARIN 40 MG/0.4 ML SYR SC SCH (16:00)
[2016-11-29] MEDS ORDERED: ATORVASTATIN 40 MG TAB PO ONE (16:00)
[2016-11-29 17:02] LABS: CKMB/CK RATIO 1.3 (0-3.0)
[2016-11-29 19:29] VITALS: BP 135/89; PULSE 88; TEMP 36.7; O2SAT 96
[2016-11-29 23:08] LABS: CKMB/CK RATIO 0.9 (0-3.0)
[2016-11-29 23:37] VITALS: BP 135/80; PULSE 75; TEMP 36.6; O2SAT 96
[2016-11-30 04:38] VITALS: BP 138/84; PULSE 87; TEMP 36.6; O2SAT 97
[2016-11-30 07:42] VITALS: BP 136/88; PULSE 79; TEMP 37; O2SAT 97
[2016-11-30] MEDS: PANTOprazole SOD 40 MG TAB PO SCH (08:19)
[2016-11-30] MEDS: LORATADINE 10 MG TAB PO SCH (08:19)
[2016-11-30] MEDS: ASPIRIN 81 MG ECTAB PO SCH (08:19)
[2016-11-30 08:51] LABS: HEMATOCRIT 41.3 % (37-47); MEAN CELL VOLUME 94.3 fL (80-100); MEAN CORPUSCULAR HEMOGLOBIN 31.3 pg (25-34); MEAN CORPUSCULAR HGB CONC 33.2 g/dl (32-36); MEAN PLATELET VOLUME 10.1 fL (7.4-10.4); PLATELET COUNT 248 K/uL (130-400); RED BLOOD COUNT 4.38 M/uL (4.2-5.4); WHITE BLOOD COUNT 7.61 K/uL (4.8-10.8)
[2016-11-30 09:18] LABS: BUN/CREATININE RATIO 15.4 (10-20); CALCIUM 8.8 mg/dl (8.5-10.1); CREATININE 0.98 mg/dl (0.60-1.20)
[2016-11-30 09:21] LABS: CHOLESTEROL/HDL RATIO 3.7
--- NOTE | 2016-11-30 10:50 | CARDIOLOGY CONSULTATION ---
DATE OF CONSULTATION: 11/30/2016 CONSULTATION REQUESTED BY: Dr. Ayers. REASON FOR CONSULTATION: Chest pain. HISTORY OF PRESENT ILLNESS: Ms. Gonzales is a very pleasant 46-year-old woman who presented to [facility] on 11/29/2016 with a complaint of chest pain. The patient states that she was in her normal state of health yesterday while mowing the lawn with a push mower. While mowing the lawn, she suddenly developed chest pain. She described it as bilateral pain. There was a pressure/dull achy sensation. She never had any similar symptoms in the past and states that she is normally able to use a push mower without any significant difficulties. This episode was associated with diaphoresis and shortness of breath. When it occurred, the patient sat down and rested for approximately 20 minutes and the symptoms slowly subsided afterwards. She has had some continued muscle soreness in her bilateral pectorals, but nowhere near as severe as the episodes that brought her into the Emergency Department. Again, she denies any previous similar episodes. PAST SURGICAL HISTORY: Tooth extractions. MEDICAL ILLNESSES: 1. Obesity. 2. GERD. FAMILY HISTORY: Denies any premature coronary artery disease or sudden cardiac . She does have some distant relatives with coronary artery disease. SOCIAL HISTORY: The patient is a former smoker, has not smoked in some time. Denies any alcohol or recreational drug use. She is not . She has no children. She lives by herself. She does help care for her 83-year-old father. REVIEW OF SYSTEMS: As per HPI, all other review of systems reviewed and negative at this time. ALLERGIES: 1. CIPRO. 2. FLUTICASONE. 3. SULFAMETHOXAZOLE WITH TRIMETHOPRIM. MEDICATIONS AN OUTPATIENT: 1. Loratadine 10 mg daily. 2. Omeprazole 20 mg daily. PHYSICAL EXAMINATION: VITALS: Temperature 37, pulse 79, respiratory rate 12, and blood pressure 136/88. GENERAL: Awake, alert, and oriented x3 in no acute distress. HEENT: Normocephalic and atraumatic. Pupils equal, round, and reactive to light and accommodation. Extraocular muscles intact. Anicteric sclerae. Moist mucous membranes. NECK: No JVD and no bruit. CARDIOVASCULAR: Regular. No S4. Normal S1 and S2. No S3. No murmurs, rubs or gallops. PULMONARY: Clear to auscultation bilaterally. No rales, rhonchi, or wheezing. ABDOMEN: Bowel sounds x4. Soft. No rebound, guarding, or tenderness. No organomegaly. EXTREMITIES: No clubbing, cyanosis or edema. +2 pedal pulses bilaterally. SKIN: Warm and dry. MUSCULOSKELETAL: Deep palpation of the left pectoral muscle was able to elicit the discomfort. LABORATORY STUDIES OF SIGNIFICANCE: 1. CPK of 66, followed by 62, and followed by 57. 2. Troponin negative x2. A 12-lead EKG performed 11/29/2016 independently reviewed at this time shows normal sinus rhythm at 84 beats per minute, questionable repolarization, and normal study. IMPRESSION: 1. Chest pain. 2. Obesity. 3. Dyslipidemia. RECOMMENDATIONS: It was my pleasure to see Ms. Gonzales in consultation today. Given her symptoms of chest pain along with her risk factors for coronary artery disease, we will proceed with an ischemic evaluation. So, resting 2D echocardiogram will be performed today. The patient will be made n.p.o. after midnight and a stress test will be performed in the a.m. In the meantime, she has already been started on aspirin and I would recommend that she also be started on daily atorvastatin, which we will put in today for 10 mg daily. Thank you very much for allowing me to participate in the care of your patient. ADAMA
--- NOTE | 2016-11-30 11:37 | Progress Note ---
Medicine Progress Note Date & Time of Visit: Nov 30, 2016 at 11:32. Subjective 46 yo F with obesity presents with acute chest pain for two days that is constant and relieved with nitro in the ER. -no chest pain overnight -denies SOB or other symptoms at this time -tolerating PO -ambulatory Objective Last 8 Hrs Date Time Temp Pulse Resp B/P (MAP) Pulse Ox O2 Delivery O2 Flow Rate FiO2 11/30/16 08:00 Room Air 11/30/16 07:42 37.0 79 20 136/88 (104) 97 11/30/16 04:38 36.6 87 20 138/84 (102) 97 Room Air 11/30/16 04:00 Room Air Physical Exam: GEN: WNWD, in no acute distress, alert and appropriate HEENT: NC/AT,pupils equal and round bilaterally,normal sclerae, MMM. poor dentition with multiple missing teeth CARDIO: reg rate, S1/2 heard without m/g/r, L anterior chest wall TTP present on exam today LUNGS: CTA bilaterally, no crackles, rales or wheezes, good diaphragmatic excursion ABD: soft, non-tender, non-distended, no rebound or guarding, +BS EXTREMITY: RP and DP palpable 2+ bilat, no LE swelling or edema, extremities are warm and well-perfused NEURO: CN 2-12 grossly intact, moves all extremities equally, no gross focal deficits MUSC: 5/5 strength throughout, no focal deficits SKIN: warm and dry Laboratory Results: 11/30/16 08:21 11/30/16 08:21 Test 11/29/16 10:29 11/29/16 10:30 11/29/16 22:27 11/30/16 08:21 Bedside Troponin I < 0.030 ng/ml (0-0.045) Prothrombin Time 11.0 SECONDS (9.0-12.0) Prothromb Time International Ratio 1.0 (0.9-1.1) Activated Partial Thromboplast Time 27.3 SECONDS (21.0-31.0) Partial Thromboplastin Ratio 1.1 Total Bilirubin 0.6 mg/dl (0.2-1) Aspartate Amino Transf (AST/SGOT) 9 U/L (15-37) Alanine Aminotransferase (ALT/SGPT) 19 U/L (12-78) Alkaline Phosphatase 68 U/L (45-117) Total Protein 7.2 gm/dl (6.4-8.2) Albumin 3.8 gm/dl (3.4-5.0) Globulin 3.4 gm/dl (2.5-4.0) Albumin/Globulin Ratio 1.1 (0.9-2) Total Creatine Kinase 57 U/L (26-192) Creatine Kinase MB 0.5 ng/ml (0.5-3.6) Creatine Kinase MB Ratio 0.9 (0-3.0) Troponin I < 0.015 ng/ml (0-0.045) Red Blood Count 4.38 M/uL (4.2-5.4) Mean Corpuscular Volume 94.3 fL (80-100) Mean Corpuscular Hemoglobin 31.3 pg (25-34) Mean Corpuscular Hemoglobin Concent 33.2 g/dl (32-36) RDW Standard Deviation 46.8 fL (36.4-46.3) RDW Coefficient of Variation 13.5 % (11.5-14.5) Mean Platelet Volume 10.1 fL (7.4-10.4) Anion Gap 7.0 mmol/L (3-11) Est Creatinine Clear Calc Drug Dose 87.9 ml/min Estimated GFR () 79.6 Estimated GFR (Non- 68.7 BUN/Creatinine Ratio 15.4 (10-20) Calcium Level 8.8 mg/dl (8.5-10.1) Magnesium Level 2.0 mg/dl (1.8-2.4) Triglycerides Level 83 mg/dl (0-150) Cholesterol Level 196 mg/dl (0-200) HDL Cholesterol 53 mg/dl LDL Cholesterol, Calculated 126 mg/dl VLDL Cholesterol, Calculated 17 mg/dl Cholesterol/HDL Ratio 3.7 Last 24 Hours Test 11/29/16 16:18 11/29/16 22:27 11/30/16 08:21 Total Creatine Kinase 62 U/L 57 U/L Creatine Kinase MB 0.8 ng/ml 0.5 ng/ml Creatine Kinase MB Ratio 1.3 0.9 Troponin I < 0.015 ng/ml < 0.015 ng/ml White Blood Count 7.61 K/uL Red Blood Count 4.38 M/uL Hemoglobin 13.7 g/dL Hematocrit 41.3 % Mean Corpuscular Volume 94.3 fL Mean Corpuscular Hemoglobin 31.3 pg Mean Corpuscular Hemoglobin Concent 33.2 g/dl RDW Standard Deviation 46.8 fL RDW Coefficient of Variation 13.5 % Platelet Count 248 K/uL Mean Platelet Volume 10.1 fL Sodium Level 141 mmol/L Potassium Level 4.0 mmol/L Chloride Level 107 mmol/L Carbon Dioxide Level 27 mmol/L Anion Gap 7.0 mmol/L Blood Urea Nitrogen 15 mg/dl Creatinine 0.98 mg/dl Est Creatinine Clear Calc Drug Dose 87.9 ml/min Estimated GFR () 79.6 Estimated GFR (Non- 68.7 BUN/Creatinine Ratio 15.4 Random Glucose 90 mg/dl Calcium Level 8.8 mg/dl Magnesium Level 2.0 mg/dl Triglycerides Level 83 mg/dl Cholesterol Level 196 mg/dl HDL Cholesterol 53 mg/dl LDL Cholesterol, Calculated 126 mg/dl VLDL Cholesterol, Calculated 17 mg/dl Cholesterol/HDL Ratio 3.7 Assessment & Plan 46 yo F with obesity presents with acute chest pain for two days that is constant and relieved with nitro in the ER. 1. Chest pain-no evidence of ACS overnight with serial cardiac enzymes negative. Ther ewas no reoccurrence of chest pain, however, her L anterior chest wall is still very TTP. Appreciate Cardiology evaluation who will stress her in the morning. Resting TTE ordered with read pending. Addition of Lipitor 10mg (80mg given yesterday for plaque stabilization empirically). NPO p MN for stress test in am. 2. Seasonal allergies-cont Claritin 3. GERD-Protonix Full code DVT proph: Lovenox Dispo-telemetry overnight, stress in am then home unless abnormal DO Tamika Prince Hospitalist Consultants: Cardiology-Dr. Valentino Farias Current Inpatient Medications: Current Inpatient Medications Medications (Trade) Dose Ordered Sig/Tamie Route Start Time Stop Time Status Last Admin Dose Admin Enoxaparin Sodium (Lovenox Inj) 40 mg Q24H SC 11/29/16 16:00 12/29/16 15:59 11/29/16 16:00 40 MG Acetaminophen (Tylenol Tab) 650 mg Q4H PRN PO 11/29/16 13:30 12/29/16 13:29 Ondansetron HCl (Zofran Inj) 4 mg Q6H PRN IV 11/29/16 13:30 12/29/16 13:29 Nitroglycerin (Nitrostat Tab) 0.4 mg UD PRN SL 11/29/16 13:30 12/29/16 13:29 Morphine Sulfate (MoRPHine SULFATE INJ) 2 mg Q30M PRN IV 11/29/16 13:30 12/13/16 13:29 Aspirin (Ecotrin Tab) 81 mg QAM PO 11/30/16 09:00 12/30/16 08:59 11/30/16 08:19 81 MG Polyethylene (Miralax Powder Packet) 17 gm DAILY PRN PO 11/29/16 13:30 12/29/16 13:29 Loratadine (Claritin Tab) 10 mg DAILY PO 11/30/16 09:00 12/30/16 08:59 11/30/16 08:19 10 MG Pantoprazole Sodium (Protonix Tab) 40 mg QAM PO 11/30/16 09:00 12/30/16 08:59 11/30/16 08:19 40 MG Miscellaneous (Iv Fluids Completed) 1 ea PRN PRN N/A 11/29/16 14:00 11/29/17 13:59 Atorvastatin Calcium (Lipitor Tab) 10 mg QAM PO 12/01/16 09:00 12/31/16 08:59
[2016-11-30 14:59] VITALS: BP 126/79; PULSE 76; TEMP 37.1; O2SAT 97
[2016-11-30] MEDS: ENOXAPARIN 40 MG/0.4 ML SYR SC SCH (15:35)
[2016-11-30] MEDS ORDERED: NURSING DECISION MEDICATION ORDER SCH (18:30)
[2016-11-30] MEDS ORDERED: COUGH DROP (SUGAR FREE) LOZ 24 LOZ/1 BOX ONE (18:32)
[2016-11-30] MEDS ORDERED: COUGH DROP (SUGAR FREE) LOZ 24 LOZ/1 BOX PO PRN (18:45)
[2016-11-30 19:06] VITALS: BP 125/81; PULSE 77; TEMP 36.6; O2SAT 96
[2016-11-30 23:33] VITALS: BP 128/82; PULSE 87; TEMP 36.7; O2SAT 98
[2016-12-01 04:33] VITALS: BP 124/77; PULSE 79; TEMP 36.1; O2SAT 97
[2016-12-01 07:40] VITALS: BP 165/78; PULSE 75; TEMP 36.7; O2SAT 97
[2016-12-01 08:00] VITALS: O2SAT 97
--- NOTE | 2016-12-01 08:20 | ECHOCARDIOGRAM REPORT ---
*NOTICE TO RECEIVING DEMOCRAT AGENCY This information is strictly Confidential and protected under [place] law. [place] law prohibits you from making any further disclosure of this information unless further disclosure is expressly permitted by the written consent of the person to whom it pertains or is authorized by law. A general authorization for the release of medical or other information is not sufficient for this purpose. Hospital accepts no responsibility if the information is made available to any other person, INCLUDING THE PATIENT. Interpretation Summary * Conclusions -- * Normal LV chamber size with mild concentric LVH. * Normal LV systolic function, EF 55-60%. * No segmental left ventricular wall motion abnormalities are noted. * Normal diastolic function. * Poorly visualized valvular structures without stenosis or regurgitation by Doppler. Procedure Details * A complete two-dimensional transthoracic echocardiogram was performed (2D, M-mode, Doppler and color flow Doppler). * There were technical limitations due to patient'sbody habitus * A contrast injection of Definity was performed to improve assessment of LV function. * Contrast was injected into an intravenous site in the right arm. * One vial of Definity ultrasound contrast was diluted in normal saline to a total volume of 10 ml. A total of '2' ml of solution was administered during imaging. * Lot # [id number] of Definity utilized for procedure. * Expiration date DEC 19. * The attending nurse who injected the contrast agent was TERRANCE RICHARDS. Left Ventricle * The left ventricle is normal in size. * There is mild concentric left ventricular hypertrophy. * Left ventricular systolic function is normal. * No segmental left ventricular wall motion abnormalities are noted. * Ejection Fraction = 55-60%. * The left ventricular wall motion is normal. Right Ventricle * The right ventricular cavity size is normal (basal dimension <4.2 cm in right ventricular apical 4-chamber view). * The right ventricular systolic function is normal as assessed by tricuspid annular plane systolic excursion (TAPSE) (normal >1.5 cm). Atria * The left atrium is not well visualized. * Right atrium not well visualized. Mitral Valve * The mitral valve is not well visualized. * There is no mitral valve stenosis. * There is no mitral regurgitation noted. Tricuspid Valve * The tricuspid valve is not well visualized. * There is no tricuspid stenosis. * No tricuspid regurgitation. Aortic Valve * The aortic valve is not well visualized. * No hemodynamically significant valvular aortic stenosis. * There is no significant aortic regurgitation. Pulmonic Valve * The pulmonary valve is not well seen, but the Doppler examination is normal without significant regurgitation or stenosis. Great Vessels * The aortic root is not well visualized. Pericardium/Pleural * There is no pericardial effusion. Left Ventricular Diastolic Function * Pulse wave TDI of the anterior and posterior mitral annulas demonstrates normal LV relaxation MMode 2D Measurements and Calculations IVSd 1.2 cm IVSs 1.5 cm LVIDd 4.0 cm LVIDs 2.8 cm LVPWd 1.2 cm LVPWs 1.4 cm IVS/LVPW 10 FS 28.9 % EDV(Teich) 69.8 ml ESV(Teich) 30.6 ml EF(Teich) 56.2 % EDV(cubed) 63.7 ml ESV(cubed) 22.9 ml EF(cubed) 64.1 % % IVS thick 21.3 % % LVPW thick 11.8 % LV mass(C)d 171.0 grams LV mass(C)dI 79.2 grams/m\S\2 LV mass(C)s 135.8 grams LV mass(C)sI 62.9 grams/m\S\2 SV(Teich) 39.2 ml SI(Teich) 18.2 ml/m\S\2 SV(cubed) 40.9 ml SI(cubed) 18.9 ml/m\S\2 LVOT diam 1.9 cm LVOT area 2.7 cm\S\2 LVAd ap4 30.4 cm\S\2 LVLd ap4 7.8 cm EDV(MOD-sp4) 97.1 ml EDV(sp4-el) 101.0 ml LVAs ap4 17.6 cm\S\2 LVLs ap4 6.0 cm ESV(MOD-sp4) 41.2 ml ESV(sp4-el) 43.8 ml EF(MOD-sp4) 57.5 % EF(sp4-el) 56.6 % LVAd ap2 33.7 cm\S\2 LVLd ap2 7.9 cm EDV(MOD-sp2) 122.8 ml EDV(sp2-el) 122.3 ml LVAs ap2 21.7 cm\S\2 LVLs ap2 7.0 cm ESV(MOD-sp2) 57.9 ml ESV(sp2-el) 56.8 ml EF(MOD-sp2) 52.8 % EF(sp2-el) 53.5 % LVLd %diff 1.4 % EDV(MOD-bp) 108.4 ml LVLs %diff 15.1 % ESV(MOD-bp) 52.1 ml EF(MOD-bp) 51.9 % SV(MOD-sp4) 55.9 ml SI(MOD-sp4) 25.9 ml/m\S\2 SV(MOD-sp2) 64.9 ml SI(MOD-sp2) 30.1 ml/m\S\2 SV(MOD-bp) 56.3 ml SI(MOD-bp) 26.1 ml/m\S\2 SV(sp4-el) 57.2 ml SI(sp4-el) 26.5 ml/m\S\2 SV(sp2-el) 65.4 ml SI(sp2-el) 30.3 ml/m\S\2 Doppler Measurements and Calculations MV E max ivan 114.9 cm/sec MV A max ivan 82.0 cm/sec MV E/A 1.4 MV P1/2t max ivan 108.3 cm/sec MV P1/2t 75.7 msec MVA(P1/2t) 2.9 cm\S\2 MV dec slope 419.0 cm/sec\S\2 MV dec time 0.31 sec Ao V2 max 161.3 cm/sec Ao max PG 10.4 mmHg Ao max PG (full) 2.5 mmHg JUSTIN(V,A) 2.4 cm\S\2 JUSTIN(V,D) 2.4 cm\S\2 LV V1 max PG 7.9 mmHg LV V1 max 140.5 cm/sec PA V2 max 105.9 cm/sec PA max PG 4.5 mmHg
[2016-12-01] MEDS: PANTOprazole SOD 40 MG TAB PO SCH (08:35)
[2016-12-01] MEDS: LORATADINE 10 MG TAB PO SCH (08:35)
[2016-12-01] MEDS: ASPIRIN 81 MG ECTAB PO SCH (08:35)
[2016-12-01] MEDS ORDERED: ATORVASTATIN 10 MG TAB PO SCH (09:00)
--- NOTE | 2016-12-01 10:00 | Cardiology Follow-Up ---
Subjective Subjective Date of Service: Dec 01, 2016. Pt evaluation today including: conversation w/ patient, physical exam, chart review, lab review, review of studies, review of inpatient medication list Additional Details: Pt seen and examined, states that she feels well. Chest muscle soreness improved overnight. Denies cp, sob, palpitations, lightheadedness or dizziness. Tele reviewed: sinus rhythm without arrhythmia or significant ectopy. Problem List Medical Problems: (1) Dental caries Status: Acute (2) Dizziness Status: Acute (3) Dysuria Status: Acute (4) GERD (gastroesophageal reflux disease) Status: Acute (5) Left sided chest pain Status: Acute (6) Lower abdominal pain Status: Acute (7) Neck pain Status: Acute Review of Systems Respiratory: No see HPI, No cough, No sputum, No wheezing, No shortness of breath, No dyspnea on exertion, No dyspnea at rest, No hemoptysis, No problem reported Cardiac: No see HPI, No chest pain, No orthopnea, No PND, No edema, No claudication, No palpitations, No problem reported Objective Vital Signs Last Vital Signs Documentation Date Time Temp Pulse Resp B/P (MAP) Pulse Ox O2 Delivery O2 Flow Rate FiO2 12/01/16 07:40 36.7 75 16 165/78 (107) 97 Room Air Physical Exam: General Appearance: WD/WN, no apparent distress Eyes: bilateral eyes normal inspection, bilateral eyes PERRL, bilateral eyes EOMI ENT: normal ENT inspection, hearing grossly normal, pharynx normal Neck: supple, no adenopathy, thyroid normal, no JVD, no carotid bruits, trachea midline Respiratory/Chest: chest non-tender, lungs clear, normal breath sounds, no respiratory distress, no accessory muscle use Cardiovascular: regular rate, rhythm, no edema, no gallop, no JVD, no murmur Abdomen: normal bowel sounds, non tender, soft, no organomegaly, no pulsatile mass Extremities: normal range of motion, non-tender, normal inspection, no pedal edema, no calf tenderness Neurologic/Psychiatric: product manager e commerce II-XII nml as tested, no motor/sensory deficits, alert, normal mood/affect, oriented x 3 Skin: normal color, warm/dry, no rash Lymphatic: no adenopathy Assessment and Plan 1. chest pain nonischemic exercise stress echo noncardiac ok to d/c to home from cardiac standpoint no cardiac f/u necessary 2. deconditioning significantly reduced exercise tolerance recommended regular exercise ok to d/c from cardiac standpoint
--- NOTE | 2016-12-01 11:06 | EXERCISE STRESS ECHO ---
*NOTICE TO RECEIVING DEMOCRAT AGENCY This information is strictly Confidential and protected under [place] law. [place] law prohibits you from making any further disclosure of this information unless further disclosure is expressly permitted by the written consent of the person to whom it pertains or is authorized by law. A general authorization for the release of medical or other information is not sufficient for this purpose. Hospital accepts no responsibility if the information is made available to any other person, INCLUDING THE PATIENT. Interpretation Summary * Name: ANDREW DUMONT Study Date: 12/01/2016 08:37 AM BP: 132/78 mmHg * Patient Location: [facility] HR: 122 * : 1970 (M/d/yyyy) Gender: Female Height: 62 in * Age: 46 yrs Ethnicity: CA Weight: 266 lb * Ordering Physician: Valentino Farias DO * Referring Physician: Self, Referred * Performed By: Katelyn Gonzalez RDCS * * Reason For Study: Chest pain * BSA: 2.2 m2 * -- Conclusions -- * Nonischemic exercise stress echocardiogram. * No arrhythmias. * Markedly reduced exercise tolerance with difficulty ambulating on treadmill. * Symptoms not reproduced. * Normal BP response to exercise. Procedure Details * ECHOEX, CPT #50606 * A contrast injection of Definity was performed to improve assessment of LV function. * Contrast was injected into an intravenous site in the right arm. * One vial of Definity ultrasound contrast was diluted in normal saline to a total volume of 10 ml. A total of '4' ml of solution was administered during imaging. * Lot # [id number] of Definity utilized for procedure. * Expiration date DEC 19. * The attending nurse who injected the contrast agent was Cameron Ty RN. Stress Parameters * The stress portion of this study was personally supervised by the undersigned interpreting physician. * Rest heart rate was '122' BPM. * Rest blood pressure was '132/78' * Maximum heart rate achieved was 179 bpm. * Maximum heart rate was 103 % of maximum age-predicted heart rate. * Maximum blood pressure was '201/56' * Total exercise time was '1:19' * Maximum exercise MET level achieved was '3.70' METS * Maximum treadmill speed was '1.70' miles per hour. * Maximum treadmill elevation was '10.00'% grade. * Exercise was terminated due to 'achieving target heart rate'
[2016-12-01 12:00] VITALS: O2SAT 97
[2016-12-01 12:10] VITALS: BP 119/80; PULSE 74; TEMP 37.1; O2SAT 97
[2016-12-01] MEDS ORDERED: LPT10 PO (12:46)
--- NOTE | 2016-12-01 12:52 | Discharge Summary ---
Discharge Summary Date of Service Dec 01, 2016. Discharge Summary Admission Date: Nov 29, 2016 at 13:32 Discharge Date: Dec 01, 2016 Discharge Disposition: Home Principal Diagnosis: Chest pain-atypical, non-cardiac etiology Hyperlipidemia Seasonal Allergies GERD Procedures: Treadmill stress echo Vaccinations: None. Consultations: Cardiology-Dr. Valentino Farias Pending Studies/Follow-Up: see instructions below Medication Reconciliation New Medications: Atorvastatin (Atorvastatin Calcium) 10 Mg Tab 10 MG PO QAM for 30 Days, #30 TAB 1 Refill Continued Medications: Loratadine (Claritin) 10 Mg Tab 10 MG PO DAILY, TAB Omeprazole Magnesium (Prilosec Otc) 20 Mg Tab 1 TAB PO DAILY, 3 Refills [Robitussin] () SYRP 1 EA PO Q6H PRN for cold symptoms Admission Information HPI (per Admitting provider): 46 yo F presents with two days of L anterior chest pain with radiation into her L neck and L arm. The pain began when she was scrubbing floors with her dad yesterday. She reports that it improved somewhat but did not completely resolve with rest. Then she noted that when she laid down to sleep last night the pain became heavier and caused her to not sleep well. She reports associated diaphoresis, lightheadedness, and SOB when laying flat. She denies palpitations, headache, vomiting, diarrhea, UTI symptoms, ear pain. She reports sore muscles in the area of her chest wall today. She reports some chronic sinus drainage since having her teeth pulled last fall and states that this causes her some nausea, which she has been experiencing recently. She also reports a sore throat for which she was seen at urgent care and had a throat swab performed. No group A strep was found by PCR. She reports some blurry vision which is improved today. She denies ever having chest pain in the past and has no known h/o CAD or stress test. She reports her mother had a h/o angina but no AR, and her mom's sister had an AR in her 60s, but there is no other family h/o early heart disease. She is a former smoker and is obese without HTN. BP in the ER is a little elevated today but review of BP as outpatient is normal. She does report a 15 pound weight gain over the past year and had some swelling in her ankles, for which her doctor advised her to stick to a lower salt diet. Physical Exam (per Admitting): GEN: obese, in no acute distress, alert and appropriate HEENT: NC/AT, PERRL, normal sclerae, MMM, pharynx non-acute, tonsils are absent , posterior pharyngeal cobblestoning noted, no sinus TTP NECK: tender lymph nodes to palpation bilaterally that are not enlarged. 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 She was admitted and monitored overnight on telemetry floor and serial cardiac enzymes were trended and were negative. There was no reoccurrence of chest pain, however, her L anterior chest wall is still very TTP. Addition of Lipitor 10mg (80mg given yesterday for plaque stabilization empirically) was added based on fasting lipid panel including an LDL of 126. Cardiology evaluated her and she underwent a treadmill stress test the following morning. Treadmill stress portion: * Nonischemic exercise stress echocardiogram. * No arrhythmias. * Markedly reduced exercise tolerance with difficulty ambulating on treadmill. * Symptoms not reproduced. * Normal BP response to exercise. Resting TTE revealed: nNormal LV chamber size with mild concentric LVH. nNormal LV systolic function, EF 55-60%. nNo segmental left ventricular wall motion abnormalities are noted. nNormal diastolic function. nPoorly visualized valvular structures without stenosis or regurgitation by Doppler. 2. Seasonal allergies-cont Claritin 3. GERD-Protonix Afterwards she was discharged in stable condition to follow-up with PCP as outpatient which was scheduled prior to discharge. She was mentating and ambulating at baseline. She was tolerating PO and was asymptomatic with an unremarkable physical exam. Total time spent on discharge = 60 minutes This includes examination of the patient, discharge planning, medication reconciliation, and communication with other providers. Discharge Instructions Discharge Instructions Date of Service Dec 01, 2016. Admission Reason for Admission: Left Sided Chest Pain Discharge Discharge Diagnosis / Problem: Atypical chest pain-noncardiac etiology, Dyslipidemia Discharge Goals Goal(s): Decrease discomfort Activity Recommendations Activity Limitations: per Instructions/Follow-up section . Instructions / Follow-Up Instructions / Follow-Up Please take all medications as instructed. You new mediation, Lipitor, is to lower your cholesterol. This order was electronically sent to your preferred pharmacy. No further cardiac testing or follow-up is necessary. You have an appointment with your PCP, Dr. Seth Aquino, on 12/04 @ 10:00 for follow-up from this hospitalization. It was a pleasure taking care of you! Call if you have any questions or problems. You can reach a [facility] hospitalist on duty at [facility] 24 hours a day by calling [phone]. Take care of yourself. Kimberly Ayers DO [facility] Diet Patient's current hospital diet: AHA Diet (Heart Healthy) Discharge Diet Recommended Diet: Regular Diet Procedures Procedures Performed: Treadmill stress echo Pending Studies Studies pending at discharge: no Laboratory Results Lipid Panel Test 11/30/16 08:21 Range/Units Triglycerides Level 83 0-150 mg/dl Cholesterol Level 196 0-200 mg/dl HDL Cholesterol 53 mg/dl Cholesterol/HDL Ratio 3.7 LDL Cholesterol, Calculated 126 mg/dl Medical Emergencies . Who to Call and When: Medical Emergencies: If at any time you feel your situation is an emergency, please call 911 immediately. . Non-Emergent Contact Non-Emergency issues call your: Primary Care Provider . . "Provider Documentation" section prepared by Kimberly Ayers. . VTE Core Measure Inpt VTE Proph given/why not?: Enoxaparin (Lovenox)SQ Additional Copies To Seth Rodriguez M.D.
[2016-12-01 13:30] VITALS: BP 119/80; PULSE 74; TEMP 37.1; O2SAT 97
== END 2016-12-01 14:28 | disposition home or self-care (01) ==
LOC: C.EDB 10:06 → C.MED 13:32 → ENRESERV 13:50
PROVIDERS: ADMIT Hospitalist; ATTEND Hospitalist
DX: R07.9 Chest pain, unspecified (principal); K21.9 Gastro-esophageal reflux disease without esophagitis; E66.9 Obesity, unspecified; Z87.440 Personal history of urinary (tract) infections; Z82.49 Family history of ischemic heart disease and other diseases of the circulatory system; Z87.891 Personal history of nicotine dependence; J30.2 Other seasonal allergic rhinitis; E78.5 Hyperlipidemia, unspecified

== ENCOUNTER 2017-02-20 11:15 | Emergency (ER) | payer OTHER ==
[~2017-02-20] VITALS: Ht 162.6 cm; Wt 121.7 kg
[~2017-02-20 11:15] MED LIST changes: -ACET-1256 PO; +CLR10 PO; -DICL-201 PO; +LPT10 PO; -MECL1TAB42 PO; -NAPR1TAB9 PO; +OMEP20TA14 PO; -ONDA4TAB46 PO; -PRLSR20 PO; +Robitussin PO
[2017-02-20 11:19] VITALS: TEMP 36.7; Ht 162.6 cm; Wt 121.7 kg
[2017-02-20] MEDS ORDERED: TRIA0.1P3 MT (11:41)
[2017-02-20] MEDS ORDERED: MULT-506 PO (11:41)
[2017-02-20 12:00] VITALS: BP 169/99; PULSE 88; O2SAT 98
--- NOTE | 2017-02-20 17:28 | EMERGENCY ROOM VISIT NOTE ---
History First contact with patient: 11:38 Chief Complaint: SKIN PROBLEM Stated Complaint: ITCHY FACE, HEAD, NECK, LESIONS IN MOUTH History of Present Illness The patient is a 46 year old female who presents to the Emergency Room with complaints of facial itching after using an oral steroid-based for mouth sores. The patient reports that she developed a cold approximately 2 weeks ago. She then started to develop an oral rash approximately 4 days ago. She was seen by her PCP yesterday, and prescribed triamcinolone 0.1% paste, along with chlorhexidine oral rinses. The patient reports that shortly after using the Carlos pace, she started to develop facial itching. She does not recall if she has used any corticosteroids in the past. She denies any significant pain on my exam, but rated her discomfort a 7 out of 10 in triage. Review of Systems 10 system review was performed and was negative except for pertinent positives and negatives as indicated in history of present illness Past Medical/Surgical History Medical Problems: (1) Cervical strain (2) GERD (gastroesophageal reflux disease) (3) Obesity (4) Seasonal allergic rhinitis (5) UTI (urinary tract infection) Surgical Problems: (1) Status post tooth extraction Family History Heart disease Social History Smoking Status: Former Smoker Alcohol Use: none Drug Use: none Marital Status: single Housing Status: lives alone Occupation Status: unemployed Current/Historical Medications Scheduled Atorvastatin (Atorvastatin Calcium), 10 MG PO QAM Loratadine (Claritin), 10 MG PO DAILY Multivitamin (Multivitamin), 1 TAB PO DAILY Omeprazole Magnesium (Prilosec Otc), 1 TAB PO DAILY Triamcinolone Acetonide (Mouth (Oralone), 1 DOSE MT TID Physical Exam Vital Signs Date Time Temp Pulse Resp B/P (MAP) Pulse Ox O2 Delivery O2 Flow Rate FiO2 02/20/17 12:00 88 16 169/99 98 02/20/17 11:19 36.7 87 18 153/105 96 Room Air Physical Exam CONSTITUTIONAL: Healthy and well nourished. Alert and oriented X 3 with positive affect. Patient does not appear in any acute distress. HEENT: Normocephalic, atraumatic. Pupils equal, round and reactive. No facial erythema or edema noted. No rhinorrhea, TM effusion or erythema noted. OROPHARYNX: I am unable to visualize any oral lesions, acute gingivitis, tonsillitis, or examination findings consistent with Sundeep's angina or retropharyngeal abscess. No angioedema noted. NECK: Full active range of motion without discomfort. RESPIRATORY: Clear to auscultation bilaterally with no wheezing, crackles, rhonchi or stridor. CARDIOVASCULAR: Regular rate and rhythm with no murmurs, rubs or gallops. MUSCULOSKELETAL: Full range of motion of all joints without discomfort. INTEGUMENTARY: Examination of the face does not show any rash or other significant findings. NEUROLOGIC: No focal neurologic deficits noted. Medical Decision & Procedures ED Course Patient history and physical exam were performed. Nurse's notes were reviewed. Vital signs were reviewed, showing a blood pressure 153/105. The patient otherwise does not appear in any acute distress. Her clinical exam is rather benign. I did explain that her symptoms could be secondary to medication side effect. For now, she was encouraged to stop using the triamcinolone oral paste to see if her symptoms improve. She may also apply an ice pack to the face, and take Benadryl if needed for additional symptoms. She was instructed to return to the emergency department for any progressively worsening symptoms, including swelling, difficulty breathing/swallowing, chest pain, palpitations or other concerning symptoms. The patient was happy with plan of care, and voiced understanding of all discharge instructions. The patient was also advised of her elevated blood pressure reading, and encouraged to follow up with her PCP for blood pressure recheck. Medical Decision Medication Reconcilliation Current Medication List: was personally reviewed by me Blood Pressure Screening Patient's blood pressure: Elevated blood pressure Blood pressure disposition: Referred to PCP Impression Primary Impression: Facial burning Additional Impressions: Other lesions of oral mucosa Elevated blood pressure reading Departure Information Dispostion Home / Self-Care Condition GOOD Forms HOME CARE DOCUMENTATION FORM, IMPORTANT VISIT INFORMATION Patient Instructions My [facility] Additional Instructions Suggest stopping the triamcinolone paste in case you are having a reaction to it. Intermittently apply a cool compress or ice pack to areas of itch or swelling. Take Benadryl 25-50 mg every 6-8 hours as needed for worse itch. Remember that Benadryl can make you sleepy. Suggest follow-up with your family doctor within the next 3-5 days if symptoms persist. Return to the emergency department over the weekend for any progressively worsening symptoms. Problem Qualifiers
== END 2017-02-20 12:00 | disposition home or self-care (01) ==
LOC: C.EDB 11:19 → C.EDD 12:00
DX: R20.8 Other disturbances of skin sensation (principal); L29.9 Pruritus, unspecified; K13.70 Unspecified lesions of oral mucosa; R03.0 Elevated blood-pressure reading, without diagnosis of hypertension

== ENCOUNTER 2017-06-07 09:47 | Emergency (ER) | payer OTHER ==
[~2017-06-07] VITALS: Ht 160 cm; Wt 121.3 kg
[~2017-06-07 09:47] MED LIST changes: +MULT-506 PO; -Robitussin PO; +TRIA0.1P3 MT
[2017-06-07 10:00] VITALS: TEMP 36.7; Ht 160 cm; Wt 121.3 kg
[2017-06-07] MEDS ORDERED: ONDANSETRON INJ 2 MG/ML 2 ML VIAL IV STA (10:45)
[2017-06-07] MEDS ORDERED: SODIUM CHLORIDE 0.9% 1000ML 1,000 ML IV STA (10:45)
--- NOTE | 2017-06-07 10:46 | EMERGENCY ROOM VISIT NOTE ---
History Report prepared by Rosalie: Rochelle Wilson Under the Supervision of: Dr. Sunny Gamble M.D. First contact with patient: 10:24 Chief Complaint: ILLNESS Stated Complaint: WEAKNESS, CONSTIPATION, STIFF NECK History of Present Illness The patient is a 46 year old female who presents to the Emergency Room with complaints of persistent generalized weakness that began a few days ago. The patient has been experiencing diarrhea and vomiting 2-3 times per day. She notes that she has some dysuria, body aches, neck pain, and back pain. She reports that she has not been eating or drinking as she normally does. The patient states that she went to the Emergency Department in [place] for nausea, constipation, and the same symptoms she is experiencing today. The patient reports that she has been taking stool softeners, which have helped relieve her symptoms. She was diagnosed with bronchitis and given rx for Azithromycin and Prednisone but notes that she has not yet filled the prescriptions they gave her. She reports that she had a chest x-ray performed yesterday, which showed bronchitis. The patient notes that she used to be a smoker. Source of History: patient Onset: few days ago Position: other (global) Quality: other (weakness) Timing: other (persistent) Associated Symptoms: + neck pain, + nausea, + vomiting, + back pain, + diarrhea, + urinary symptoms Note: Associated symptoms include constipation and body aches. Review of Systems See HPI for pertinent positives and negatives. A total of ten systems were reviewed and were otherwise negative. Past Medical & Surgical Medical Problems: (1) Cervical strain (2) GERD (gastroesophageal reflux disease) (3) Obesity (4) Seasonal allergic rhinitis (5) UTI (urinary tract infection) Surgical Problems: (1) Status post tooth extraction Family History Heart disease Social History Smoking Status: Former Smoker Alcohol Use: none Drug Use: none Marital Status: single Housing Status: lives alone Occupation Status: unemployed Current/Historical Medications Scheduled Atorvastatin (Lipitor), 10 MG PO QAM Cephalexin Monohydrate (Keflex), 500 MG PO BID Loratadine (Claritin), 10 MG PO DAILY Multivitamin (Multivitamin), 1 TAB PO DAILY Omeprazole Magnesium (Prilosec Otc), 1 TAB PO DAILY Allergies Coded Allergies: Sulfamethoxazole w/Trimethoprim (Verified Allergy, Unknown, ., 06/07/17) Ciprofloxacin (Verified Adverse Reaction, Severe, DIZZY, 06/07/17) Fluticasone (Verified Adverse Reaction, Intermediate, SEVERE BURNING, ) Physical Exam Vital Signs Date Time Temp Pulse Resp B/P (MAP) Pulse Ox O2 Delivery O2 Flow Rate FiO2 06/07/17 14:12 80 18 138/104 97 Room Air 06/07/17 13:04 87 20 158/93 97 06/07/17 10:00 36.7 90 18 155/96 97 Room Air Physical Exam GENERAL: Awake, alert, in no distress HENT: Dry cracked mucous membranes. Normocephalic, atraumatic. Oropharynx unremarkable. EYES: Normal conjunctiva. Sclera non-icteric. NECK: Supple. No nuchal rigidity. FROM. No JVD. RESPIRATORY: Clear to auscultation. CARDIAC: Regular rate, normal rhythm. Extremities warm and well perfused. Pulses equal. ABDOMEN: Obese abdomen. Soft, non-distended. No tenderness to palpation. No rebound or guarding. No masses. RECTAL: Deferred. MUSCULOSKELETAL: Chest examination reveals no tenderness. The back is symmetrical on inspection without obvious abnormality. There is no CVA tenderness to palpation. No joint edema. LOWER EXTREMITIES: Calves are equal size bilaterally and non-tender. No edema. No discoloration. NEURO: Normal sensorium. No sensory or motor deficits noted. SKIN: No rash or jaundice noted. Medical Decision & Procedures Laboratory Results 06/07/17 11:05 Red Blood Count 4.52, Mean Corpuscular Volume 94.9, Mean Corpuscular Hemoglobin 32.1, Mean Corpuscular Hemoglobin Concent 33.8, Mean Platelet Volume 10.3, Neutrophils (%) (Auto) 72.8, Lymphocytes (%) (Auto) 14.9, Monocytes (%) (Auto) 10.7, Eosinophils (%) (Auto) 0.8, Basophils (%) (Auto) 0.3, Neutrophils # (Auto ) 7.68, Lymphocytes # (Auto) 1.57, Monocytes # (Auto) 1.13, Eosinophils # (Auto ) 0.08, Basophils # (Auto) 0.03 06/07/17 11:05 Test 06/07/17 10:55 06/07/17 11:05 06/07/17 11:06 Influenza Type A Antigen Neg for Influ A (NEG) Influenza Type B Antigen Neg for Influ B (NEG) White Blood Count 10.54 K/uL (4.8-10.8) Red Blood Count 4.52 M/uL (4.2-5.4) Hemoglobin 14.5 g/dL (12.0-16.0) Hematocrit 42.9 % (37-47) Mean Corpuscular Volume 94.9 fL (80-100) Mean Corpuscular Hemoglobin 32.1 pg (25-34) Mean Corpuscular Hemoglobin Concent 33.8 g/dl (32-36) Platelet Count 297 K/uL (130-400) Mean Platelet Volume 10.3 fL (7.4-10.4) Neutrophils (%) (Auto) 72.8 % Lymphocytes (%) (Auto) 14.9 % Monocytes (%) (Auto) 10.7 % Eosinophils (%) (Auto) 0.8 % Basophils (%) (Auto) 0.3 % Neutrophils # (Auto) 7.68 K/uL (1.4-6.5) Lymphocytes # (Auto) 1.57 K/uL (1.2-3.4) Monocytes # (Auto) 1.13 K/uL (0.11-0.59) Eosinophils # (Auto) 0.08 K/uL (0-0.5) Basophils # (Auto) 0.03 K/uL (0-0.2) RDW Standard Deviation 47.5 fL (36.4-46.3) RDW Coefficient of Variation 13.6 % (11.5-14.5) Immature Granulocyte % (Auto) 0.5 % Immature Granulocyte # (Auto) 0.05 K/uL (0.00-0.02) Anion Gap 8.0 mmol/L (3-11) Est Creatinine Clear Calc Drug Dose 82.8 ml/min Estimated GFR () 72.4 Estimated GFR (Non- 62.5 BUN/Creatinine Ratio 16.8 (10-20) Calcium Level 9.4 mg/dl (8.5-10.1) Total Bilirubin 0.8 mg/dl (0.2-1) Direct Bilirubin 0.2 mg/dl (0-0.2) Aspartate Amino Transf (AST/SGOT) 14 U/L (15-37) Alanine Aminotransferase (ALT/SGPT) 23 U/L (12-78) Alkaline Phosphatase 84 U/L (45-117) Total Protein 8.1 gm/dl (6.4-8.2) Albumin 4.3 gm/dl (3.4-5.0) Lipase 145 U/L (73-393) Urine Color DK YELLOW Urine Appearance CLOUDY (CLEAR) Urine pH 5.0 (4.5-7.5) Urine Specific [place] 1.027 (1.000-1.030) Urine Protein TRACE (NEG) Urine Glucose (UA) NEG (NEG) Urine Ketones 2+ (NEG) Urine Occult Blood 1+ (NEG) Urine Nitrite POS (NEG) Urine Bilirubin NEG (NEG) Urine Urobilinogen NEG (NEG) Urine Leukocyte Esterase MODERATE (NEG) Urine WBC (Auto) >30 /hpf (0-5) Urine RBC (Auto) 0-4 /hpf (0-4) Urine Hyaline Casts (Auto) /lpf (0-5) Urine Epithelial Cells (Auto) >30 /lpf (0-5) Urine Bacteria (Auto) 4+ (NEG) Urine Crystals AMORPHOUS SEDIMENT (NONE Urine Pathogenic Casts /lpf (0) Laboratory results reviewed by me Medications Administered Medications (Trade) Dose Ordered Sig/Tamie Route Start Time Stop Time Status Last Admin Dose Admin Sodium Chloride 1,000 ml @ 999 mls/hr Q1H1M STAT IV 06/07/17 10:45 06/07/17 11:45 DC 06/07/17 11:23 999 MLS/HR Ondansetron HCl (Zofran Inj) 4 mg NOW STAT IV 06/07/17 10:45 06/07/17 10:48 DC 06/07/17 11:23 4 MG Cephalexin Monohydrate (Keflex Cap) 500 mg NOW ONCE PO 06/07/17 14:15 06/07/17 14:17 DC 06/07/17 14:28 500 MG Cephalexin Monohydrate (Keflex 500MG Home Pack) 1 homepack NOW ONCE PO 06/07/17 14:15 06/07/17 14:17 DC 06/07/17 14:28 1 HOMEPACK Prednisone (PredniSONE TAB) 60 mg NOW STAT PO 06/07/17 14:15 06/07/17 14:17 DC 06/07/17 14:28 60 MG ED Course 1037: The patient was evaluated in room B3. A complete history and physical exam was performed. 1241: I reevaluated the patient, who was resting comfortably. 1450: I reevaluated the patient. Discussed results and discharge instructions: She verbalized understanding and agreement. The patient is ready for discharge. Medical Decision I reviewed the patient's past medical history, medications, and the nursing notes as described above. The patient's presentation and history were concerning for pneumonia, bronchitis , UTI, dehydration, electrolyte abnormalities, influenza, and viral infection. The patient is a 46-year-old woman who presents to emergency department with weakness and body aches in the setting of being seen at outside hospital emergency department yesterday for the same and diagnosed with bronchitis per hpi. On arrival the patient is in no acute distress, afebrile stable vital signs. Lungs are clear to auscultation bilaterally. WBC within normal limits. Chemistry unremarkable. Flu negative. UA positive for UTI. Plan for Keflex. Given the patient's recent diagnosis of bronchitis (though lungs are clear today) having yet to fill her prescriptions patient was given home pack of prednisone. Otherwise instructed to hold off on taking her azithromycin until she completes her Keflex course for her UTI and if her respiratory symptoms persisted then she can take it at that time. Of note the patient does appear to have some delay and has a friend with her at the bedside assisting to help guide her to her medical care. Findings and plan for follow-up reviewed with patient and her friend. Patient and friend are agreeable and d/c'd per discharge instructions. Medication Reconcilliation Current Medication List: was personally reviewed by me Impression Primary Impression: UTI (urinary tract infection) Additional Impression: Bronchitis Scribe Attestation The scribe's documentation has been prepared under my direction and personally reviewed by me in its entirety. I confirm that the note above accurately reflects all work, treatment, procedures, and medical decision making performed by me. Departure Information Dispostion Home / Self-Care Prescriptions Cephalexin Monohydrate (Keflex) 500 Mg Cap 500 MG PO BID for 7 Days, #14 CAP Prov: Sunny Gamble M.D. 06/07/17 Referrals Seth Rodriguez M.D. (PCP) Forms HOME CARE DOCUMENTATION FORM, IMPORTANT VISIT INFORMATION, WORK / SCHOOL INSTRUCTIONS Patient Instructions Bronchitis Acute, ED UTI Cystitis Female, My [facility] Additional Instructions Please follow up with your primary care physician in the next 1-3 days for re- evaluation. You were found to have a urinary tract infection. Otherwise, your exam and lab results did not show signs of an emergent condition at this time. Acetaminophen or ibuprofen for pain and fevers as needed. Keflex as directed. Continue your prednisone as prescribed. If your symptoms to not improve after Keflex begin Azithromycin as previously prescribed. Drink plenty of fluids to ensure hydration. Return to the emergency department for worsening symptoms as described in the accompanying instructions. Problem Qualifiers
[2017-06-07 11:18] LABS: BASO % 0.3 %; BASO ABS # 0.03 K/uL (0-0.2); EOS % 0.8 %; EOS ABS # 0.08 K/uL (0-0.5); HEMATOCRIT 42.9 % (37-47); HEMOGLOBIN 14.5 g/dL (12.0-16.0); IG# 0.05 K/uL (0.00-0.02); LYMPH % 14.9 %; LYMPH ABS # 1.57 K/uL (1.2-3.4); MEAN CELL VOLUME 94.9 fL (80-100); MEAN CORPUSCULAR HEMOGLOBIN 32.1 pg (25-34); MEAN CORPUSCULAR HGB CONC 33.8 g/dl (32-36); MEAN PLATELET VOLUME 10.3 fL (7.4-10.4); MONO % 10.7 %; MONO ABS # 1.13 K/uL (0.11-0.59); NEUT % 72.8 %; NEUT ABS # 7.68 K/uL (1.4-6.5); PLATELET COUNT 297 K/uL (130-400); RED CELL DISTRIBUTION WIDTH CV 13.6 % (11.5-14.5); RED CELL DISTRIBUTION WIDTH SD 47.5 fL (36.4-46.3); WHITE BLOOD COUNT 10.54 K/uL (4.8-10.8)
[2017-06-07] MEDS ORDERED: LPT10 PO (11:29)
[2017-06-07 11:35] LABS: ALBUMIN 4.3 gm/dl (3.4-5.0); CALCIUM 9.4 mg/dl (8.5-10.1); CREATININE 1.06 mg/dl (0.60-1.20); POTASSIUM 3.6 mmol/L (3.5-5.1)
[2017-06-07 11:38] LABS: TOTAL PROTEIN 8.1 gm/dl (6.4-8.2)
[2017-06-07 11:40] LABS: INFLUENZA B ANTIGEN Neg for Influ B (NEG)
[2017-06-07 14:12] VITALS: BP 138/104; PULSE 80; O2SAT 97
[2017-06-07] MEDS ORDERED: CEPHALEXIN MONOHYDRATE 250 MG CAP PO ONE (14:15)
[2017-06-07] MEDS ORDERED: CEPHALEXIN 500MG HOME PACK 1 EA BTL PO ONE (14:15)
[2017-06-07] MEDS ORDERED: CEPH500C PO (14:17)
[2017-06-07] MEDS ORDERED: EMPTY 8 DRAM VIAL ONE (14:30)
--- NOTE | 2017-06-09 11:50 | Pharmacy Progress Note ---
ED Pharmacist Culture FollowUp Date of Service: Jun 09, 2017. Patient was sent home with a prescription for keflex 500mg BID X 7 days, which should cover the E. Coli growing from the patient's urine culture.
== END 2017-06-07 14:58 | disposition home or self-care (01) ==
LOC: C.EDB 09:48
DX: N39.0 Urinary tract infection, site not specified (principal); J40 Bronchitis, not specified as acute or chronic; K21.9 Gastro-esophageal reflux disease without esophagitis; Z87.891 Personal history of nicotine dependence; Z82.49 Family history of ischemic heart disease and other diseases of the circulatory system

== ENCOUNTER 2022-06-23 10:52 | Inpatient (IN) ==
[2022-06-23] MEDS ORDERED: SODIUM CHLORIDE 0.9% 500 ML IV SCH (11:30)
--- NOTE | 2022-06-23 11:36 | Emergency Department Note ---
Impression & Plan Weakness, Cellulitis, Pedal edema, Tachycardia ED Provider Note NAME: ANDREW DUMONT AGE: 51 SEX: F : 1970 ARRIVES VIA: Ambulance INFORMANT: [Patient][nursing, EMS] ED PROVIDER(S): [Manas Fagan MD] CHIEF COMPLAINT: Leg pain, weakness HISTORY OF PRESENT ILLNESS: The patient is a 51-year-old female who had adult protective services check on her today. By report, her house was in disarray and cluttered. She was covered in stool and there was concern about her ability to care for self at home. She does live alone. The patient admits to some increasing weakness and more difficulty getting around. Her legs are edematous and erythematous. She does have bilateral leg pain, worse on the left. She states that she is taking all her medications as prescribed. No fever, chills, cough or congestion. No fall. She carries a history of lymphedema. PMHx/PSHx: See Below SOCIAL HISTORY: See Below. PHYSICAL EXAM: GENERAL: Patient is in no acute distress. HEENT: No acute trauma, normocephalic atraumatic, mucous membranes moist, no nasal congestion. NECK: No stridor, no adenopathy, no meningismus, trachea is midline. LUNGS: Clear to auscultation bilaterally, no wheeze, no rhonchi, breath sounds equal. HEART: Mildly tachycardic, regular rhythm, no murmurs. ABDOMEN: Soft, nontender, bowel sounds positive, no peritonitis. EXTREMITIES: No cyanosis. Significant bilateral pedal edema with some bilateral lower extremity erythema, mild warmth present, no drainage. The erythema is sli ghtly worse on the left. NEUROLOGIC: Oriented x 3, no acute motor or sensory deficits, no focal weakness. SKIN: No rash, no jaundice, no diaphoresis. DIFFERENTIAL DIAGNOSIS: Dehydration, electrolyte imbalance, DVT, cellulitis, bacteremia, UTI, anemia, debilitation, among others. EMERGENCY DEPARTMENT COURSE/PROCEDURES: Prior/Outside records reviewed: EMS notes. ECG per my interpretation: Indication was weakness and tachycardia. The ECG shows a sinus tachycardia with a rate of 106. There is some baseline artifact. No ST elevation, no PVCs. QTc is 462 Continuous Cardiac Monitoring per my interpretation: An order was placed for continuous cardiac monitoring. The monitor shows a rate of 118 with sinus tachycardia. MEDICAL DECISION MAKING: There is no leukocytosis or worrisome anemia. There is a normal platelet count. No renal failure or significant electrolyte abnormality. Lactic acid level is not elevated making severe sepsis less likely. There is no concerning liver enzyme elevation. Total CK is not elevated making rhabdomyolysis very unlikely. ECG showed a sinus tachycardia, no ischemia. Cardiac enzyme testing x1 was not consistent with acute cardiac injury. Patient appeared to be in a euthyroid state. COVID testing returned negative. A bilateral lower extremity ultrasound did not show any evidence for clot. Chest film did not show pneumonia or CHF per my review. On exam, the patient has significant pedal edema with lower extremity erythema, slightly worse on the left. She was tachycardic. The patient was given IV saline, 500 cc, she was given IV cefepime as antibiotic coverage. The patient's home situation is poor. She presented covered in feces. Adult care services felt her living situation was so poor that the patient would benefit from placement. The patient is not interested in being placed anywhere else. She wants to return home eventually. She is willing to stay in the hospital for the weakness, left leg pain and cellulitis. I did speak with the patient and case management, the on-call hospitalist was consulted. DISPOSITION: Patient's presentation and findings warrant a hospital stay. Past Med/Surg History Medical History Breast discharge RT SIDE (REASON FOR PROCEDURE) Depression Dyslipidemia GERD (gastroesophageal reflux disease) History of COVID-19 04/2020 Hx: UTI (urinary tract infection) RECENT DX Hypertension Leg swelling REASON FOR LASIX (CURRENTLY HAS LEG SWELLING) Obesity Seasonal allergic rhinitis Surgical History History of colonoscopy History of surgery on extremity left leg cut artery History of tooth extraction Hx of lumpectomy benign Family History Mother Stomach cancer Father Colorectal cancer Other No family history of adverse response to anesthesia Social History Smoking Status: Former smoker Tobacco Type: Cigarettes Smoking End Date: 25 years ago; Second Hand Exposure: No; Hx Alcohol Use: No Hx Substance Use: No Preferred Language: Welsh Communication Ability: Effective Enrollment Management Director Required: No Beliefs That Will Affect Care: None Current Living Situation: Alone Feels Safe at Home: Yes Assistive Devices: Cane Allergies Allergies Allergy/AdvReac Type Severity Reaction Status Date / Time fluticasone [From Flonase] Allergy Mild burning in Verified 04/10/22 18:18 nose sulfamethoxazole Allergy Mild itchy Verified 04/10/22 18:18 [From Bactrim] trimethoprim [From Bactrim] Allergy Mild itchy Verified 04/10/22 18:18 ciprofloxacin [Cipro] AdvReac Severe DIZZY Verified 04/10/22 18:18 Home Meds Home Medications Medication Instructions Recorded Confirmed lisinopril 10 mg tablet 10 mg PO QAM 04/17/20 06/23/22 loratadine 10 mg tablet 10 mg PO DAILY PRN Allergy Symptoms 04/17/20 06/23/22 rosuvastatin 5 mg tablet 5 mg PO QAM 04/17/20 06/23/22 sertraline 50 mg tablet 75 mg PO HS 04/17/20 06/23/22 cyclobenzaprine 10 mg tablet 10 mg PO TID PRN muscle spasms 11/05/20 06/23/22 famotidine 40 mg tablet 40 mg PO QAM 01/09/22 06/23/22 multivitamin 1 tab PO QAM 01/09/22 06/23/22 acetaminophen 500 mg tablet 1,000 mg PO QID PRN Pain 01/13/22 06/23/22 (Acetaminophen Extra Strength) furosemide 40 mg tablet 40 mg PO DAILY 06/23/22 06/23/22 lactobacillus combination no.4 3 3,000 mmu cells PO DAILY 06/23/22 06/23/22 billion cell capsule (Probiotic) Results & Data (ED) Vital Signs Vital Signs - 24 hr 06/23/22 11:01 06/23/22 11:01 06/23/22 12:17 Temperature 36.8 C Temperature Source Oral Pulse Rate 118 H 104 H Pulse Rhythm Regular Pulse Strength Normal Respiratory Rate 20 Respiratory Effort / Characteristics Non-Labored Spontaneous Respiratory Depth Normal Respiratory Pattern Regular Blood Pressure 150/86 H Blood Pressure Mean 107 Blood Pressure Position Sitting Oxygen Delivery Method Room Air Sepsis Recent Fever Within 48 Hours No Sepsis New/Unexplained Change in Mental Status No Sepsis Action Taken by Nursing No Action Required Home Medications Current Medication List: was personally reviewed by me Laboratory Data Attestation: I reviewed the patient's lab results. 06/23/22 11:16 06/23/22 11:16 Lab Results 06/23/22 06/23/22 06/23/22 Range/Units 11:16 11:16 11:16 WBC 7.39 (4.8-10.8) K/ul RBC 4.34 (4.20-5.40) M/uL Hgb 13.3 (12.0-16.0) g/dl Hct 40.2 (37.0-47.0) % MCV 92.6 (80.0-100.0) fL MCH 30.6 (25.0-34.0) pg MCHC 33.1 (32.0-36.0) g/dL RDW Std Deviation 45.4 (36.4-46.3) fL RDW Coeff of Antonio 13.4 (11.5-14.5) % Plt Count 251 (130-400) K/uL MPV 10.7 (9.4-12.4) fL Immature Gran % (Auto) 0.4 % Neut % (Auto) 73.8 % Lymph % (Auto) 14.6 % [place] % (Auto) 10.6 % Eos % (Auto) 0.3 % Baso % (Auto) 0.3 % Neut # (Auto) 5.46 (1.40-6.50) K/uL Lymph # (Auto) 1.08 L (1.2-3.4) K/uL [place] # (Auto) 0.78 H (0.11-0.59) K/uL Eos # (Auto) 0.02 (0-0.50) K/uL Baso # (Auto) 0.02 (0-0.2) K/uL Immature Gran # (Auto) 0.03 (0.01-0.20) K/uL Sodium 141 (136-145) mmol/L Potassium 4.1 (3.5-5.1) mmol/L Chloride 106 (98-107) mmol/L Carbon Dioxide 26 (21-32) mmol/L Anion Gap 9 (3-11) BUN 15 (6-23) mg/dl Creatinine 0.79 (0.6-1.2) mg/dl Est Cr Clr Drug Dosing 118.8 ml/min Est GFR ( Amer) 99.8 ml/min Est GFR (Non-Af Amer) 86.1 ml/min BUN/Creatinine Ratio 19.0 (10-20) Glucose 104 H (70-99(Fasting)) mg/dl Lactate (0.4-2.0) mmol/L Calcium 9.8 (8.5-10.1) mg/dl Magnesium 1.7 (1.7-2.4) mg/dl Total Bilirubin 0.9 (0.2-1.0) mg/dl AST 18 (13-39) U/L ALT 15 (7-52) U/L Alkaline Phosphatase 78 (34-104) U/L Total Creatine Kinase 54 (26-192) U/L Troponin I High Sens 4.1 (0-14) pg/ml Total Protein 7.2 (6.0-8.3) gm/dl Albumin 4.3 (3.4-5.0) gm/dl Globulin 2.9 (2.5-4.0) gm/dl Albumin/Globulin Ratio 1.5 (0.9-2) TSH 2.258 (0.300-4.500) uIu/ml SARS-CoV-2, RNA, NAAT (NEGATIVE) 06/23/22 06/23/22 Range/Units 12:05 12:18 WBC (4.8-10.8) K/ul RBC (4.20-5.40) M/uL Hgb (12.0-16.0) g/dl Hct (37.0-47.0) % MCV (80.0-100.0) fL MCH (25.0-34.0) pg MCHC (32.0-36.0) g/dL RDW Std Deviation (36.4-46.3) fL RDW Coeff of Antonio (11.5-14.5) % Plt Count (130-400) K/uL MPV (9.4-12.4) fL Immature Gran % (Auto) % Neut % (Auto) % Lymph % (Auto) % [place] % (Auto) % Eos % (Auto) % Baso % (Auto) % Neut # (Auto) (1.40-6.50) K/uL Lymph # (Auto) (1.2-3.4) K/uL [place] # (Auto) (0.11-0.59) K/uL Eos # (Auto) (0-0.50) K/uL Baso # (Auto) (0-0.2) K/uL Immature Gran # (Auto) (0.01-0.20) K/uL Sodium (136-145) mmol/L Potassium (3.5-5.1) mmol/L Chloride (98-107) mmol/L Carbon Dioxide (21-32) mmol/L Anion Gap (3-11) BUN (6-23) mg/dl Creatinine (0.6-1.2) mg/dl Est Cr Clr Drug Dosing ml/min Est GFR ( Amer) ml/min Est GFR (Non-Af Amer) ml/min BUN/Creatinine Ratio (10-20) Glucose (70-99(Fasting)) mg/dl Lactate 1.1 (0.4-2.0) mmol/L Calcium (8.5-10.1) mg/dl Magnesium (1.7-2.4) mg/dl Total Bilirubin (0.2-1.0) mg/dl AST (13-39) U/L ALT (7-52) U/L Alkaline Phosphatase (34-104) U/L Total Creatine Kinase (26-192) U/L Troponin I High Sens (0-14) pg/ml Total Protein (6.0-8.3) gm/dl Albumin (3.4-5.0) gm/dl Globulin (2.5-4.0) gm/dl Albumin/Globulin Ratio (0.9-2) TSH (0.300-4.500) uIu/ml SARS-CoV-2, RNA, NAAT NEGATIVE (NEGATIVE) Administered Medications Discontinued Medications Sodium Chloride (Nss) 500 mls @ 999 mls/hr IV .Q31M ROWENA Stop: 06/23/22 12:00 Last Infusion: 06/23/22 12:01 Dose: 0 mls/hr Documented By: NRJohana Admin: 06/23/22 11:27 Dose: 999 mls/hr Documented By: EVER Cefepime HCl (Maxipime) 2,000 mg in 20 mls @ 5 mls/min IV NOW STA; Protocol Stop: 06/23/22 11:40 Last Admin: 06/23/22 12:43 Dose: 5 mls/min Documented By: NRB Imaging Data Radiologist's Impression: Venous Doppler Study 06/23/22 11:21 BILATERAL LOWER EXTREMITY VENOUS DOPPLER CLINICAL HISTORY: Bilateral lower extremity swelling. COMPARISON STUDY: Left lower extremity venous Doppler ultrasound April 10, 2022. TECHNIQUE: Sonography of the deep venous system of the bilateral lower extremities was performed. Compression and augmentation were evaluated. FINDINGS: This exam is compromised by suboptimal penetration related to lower extremity edema. The bilateral common femoral, superficial femoral and popliteal veins were compressible. Augmentation was normal. The calf vessels were obscured. IMPRESSION: Technically compromised exam but no evidence of deep venous thrombus within the bilateral lower extremities. ACT 112: Negative or not required by law. Electronically signed by: Casimiro Diamond M.D. 06/23/2022 2:00 PM Chest X-Ray 06/23/22 11:22 SINGLE VIEW CHEST CLINICAL HISTORY: Generalized weakness. FINDINGS: 2 AP, portable, upright chest radiographs are compared to chest x-ray and chest CT dated 04/10/2022. The examination is degraded by portable technique and apical lordotic positioning. The cardiomediastinal silhouette is unremarkable. The lungs and pleural spaces are clear. No pneumothorax is seen. The bony thorax is grossly intact. IMPRESSION: No active disease in the chest. ACT 112: Negative or not required by law. Electronically signed by: Manas Hernandez M.D. 06/23/2022 11:43 AM Discharge Plan Visit Data Chief Complaint: Leg Injury/Pain ED Provider: Manas Fagan Discharge Problem: Weakness, Cellulitis, Pedal edema, Tachycardia Patient Disposition: Admitted As Inpatient Condition: Fair Forms Stand Alone Forms: [facility] Prescriptions Prescriptions: No Action lisinopril 10 mg tablet 10 mg PO QAM sertraline 50 mg tablet 75 mg PO HS Rx Instructions: TAKE ONE AND ONE HALF TABLETS ONCE A DAY loratadine 10 mg Tablet 10 mg PO DAILY PRN (Reason: Allergy Symptoms) rosuvastatin 5 mg tablet 5 mg PO QAM cyclobenzaprine 10 mg tablet 10 mg PO TID PRN (Reason: muscle spasms) furosemide 40 mg tablet 40 mg PO DAILY Probiotic 3 billion cell Capsule 3,000 mmu cells PO DAILY Rx Instructions: administer with a meal multivitamin Tablet 1 tab PO QAM famotidine 40 mg Tablet 40 mg PO QAM acetaminophen [Acetaminophen Extra Strength] 500 mg Tablet 1,000 mg PO QID PRN (Reason: Pain) Referrals Referrals: Faizan Chicas MD [Primary Care Provider] -
[2022-06-23] MEDS ORDERED: CEFEPIME 2,000 MG/20 ML VIAL IV STA (11:37)
--- NOTE | 2022-06-23 11:45 | XRay Report ---
SINGLE VIEW CHEST CLINICAL HISTORY: Generalized weakness. FINDINGS: 2 AP, portable, upright chest radiographs are compared to chest x-ray and chest CT dated . The examination is degraded by portable technique and apical lordotic positioning. The cardi omediastinal silhouette is unremarkable. The lungs and pleural spaces are clear. No pneumothorax is s een. The bony thorax is grossly intact. IMPRESSION: No active disease in the chest. ACT 112: Negative or not required by law. Electronically signed by: Manas Hernandez M.D. 06/23/2022 11:43 AM
[2022-06-23 11:51] LABS: Basophils # (auto) 0.02 K/uL (0-0.2); Basophils % (auto) 0.3 %; Eosinophils # (auto) 0.02 K/uL (0-0.50); Eosinophils % (auto) 0.3 %; Hematocrit (blood only) 40.2 % (37.0-47.0); Hemoglobin 13.3 g/dl (12.0-16.0); Immature Granulocytes # (auto) 0.03 K/uL (0.01-0.20); Immature Granulocytes % (auto) 0.4 %; Lymphocytes # (auto) 1.08 K/uL (1.2-3.4); Lymphocytes % (auto) 14.6 %; Mean Corpuscular Hemoglobin 30.6 pg (25.0-34.0); Mean Corpuscular Hgb Conc 33.1 g/dL (32.0-36.0); Mean Corpuscular Volume 92.6 fL (80.0-100.0); Mean Platelet Volume 10.7 fL (9.4-12.4); Monocytes # (auto) 0.78 K/uL (0.11-0.59); Monocytes % (auto) 10.6 %; Neutrophils # (auto) 5.46 K/uL (1.40-6.50); Neutrophils % (auto) 73.8 %; Platelet Count 251 K/uL (130-400); RDW Coefficient of Variation 13.4 % (11.5-14.5); RDW Standard Deviation 45.4 fL (36.4-46.3); Red Blood Count 4.34 M/uL (4.20-5.40); White Blood Count 7.39 K/ul (4.8-10.8)
[2022-06-23 12:09] LABS: Albumin Level 4.3 gm/dl (3.4-5.0); Bilirubin,Total 0.9 mg/dl (0.2-1.0); Calcium 9.8 mg/dl (8.5-10.1); Magnesium 1.7 mg/dl (1.7-2.4); Potassium 4.1 mmol/L (3.5-5.1)
[2022-06-23 12:14] LABS: Troponin I High Sensitivity 4.1 pg/ml (0-14)
[2022-06-23 12:15] LABS: Albumin Globulin Ratio 1.5 (0.9-2); Creatinine Clr Calc Pharmacy 118.8 ml/min; Est GFR (African American) 99.8 ml/min; Est GFR (Non-African American) 86.1 ml/min; Globulin 2.9 gm/dl (2.5-4.0); Total Protein 7.2 gm/dl (6.0-8.3)
--- NOTE | 2022-06-23 14:01 | Ultrasound Report ---
BILATERAL LOWER EXTREMITY VENOUS DOPPLER CLINICAL HISTORY: Bilateral lower extremity swelling. COMPARISON STUDY: Left lower extremity venous Doppler ultrasound April 10, 2022. TECHNIQUE: Sonography of the deep venous system of the bilateral lower extremities was performed. Co mpression and augmentation were evaluated. FINDINGS: This exam is compromised by suboptimal penetration related to lower extremity edema. The bi lateral common femoral, superficial femoral and popliteal veins were compressible. Augmentation was n ormal. The calf vessels were obscured. IMPRESSION: Technically compromised exam but no evidence of deep venous thrombus within the bilateral lower extremities. ACT 112: Negative or not required by law. Electronically signed by: Casimiro Diamond M.D. 06/23/2022 2:00 PM
--- NOTE | 2022-06-23 14:26 | History & Physical Report ---
Date of Service June 23, 2022 Assessment & Plan (1) Bilateral lower leg cellulitis: (2) Lymphedema of both lower extremities: (3) Hypertension: (4) Dyslipidemia: (5) Morbid obesity with BMI of 50.0-59.9, adult: Plan This is a 51-year-old female who has significant past medical history of hypertension, hyperlipidemia, depression with anxiety, GERD, morbid obesity, chronic bilateral lower extremity lymphedema who presents to ED secondary to worsening left leg pain and swelling x2 days. Bilateral lower extremity cellulitis Bilateral lower extremity lymphedema admit to med/surg IV Rocephin 2g daily consult wound care for L calf callused area PT/OT CM consult HTN continue lisinopril bp elevated in ED, likely 2/2 pain continue to monitor HLD continue statin Morbid Obesity with BMI of 50-59.9 encourage life style modifications DVT ppx: Lovenox BID Dispo: hospitalize for IV antibiotics, pt has poor living situation per ED provider with feces all through house, will need to get CM involve, pt has APS involved FULL CODE PCP:Juan Francisco Pt was seen and examined in collaboration with Dr. Ramesh, please see addendum A total of 65 minutes were spent with greater than 50% of that time face to face with the patient, personally reviewing all current laboratories, imaging studies, past medication reconciliation, outpatient chart review, and discussion with specialists to collaborate care for the patient with attending. Please see attending documentation for corrections and/or additions. History of Present Illness Chief Complaint: LLE pain and edema x 2 days. Primary Care Provider: Faizan Chicas MD This is a 51-year-old female who has significant past medical history of hypertension, hyperlipidemia, depression with anxiety, GERD, morbid obesity, chronic bilateral lower extremity lymphedema who presents to ED secondary to worsening left leg pain and swelling x2 days. Patient lives alone by herself. Report given by ED provider was that she lives alone under poor conditions. Adult Protective Services have been involved and unable to reach pt for 2 weeks; therefore they had landlord checked in on patient today and the house was in bad shape, "deplorable." There was a human and animal feces everywhere including on the patient. Patient is having hard time caring for self. She denies any trauma to the leg or animal scratch. She notes worsening swelling to both of her legs, but left is worse over the past 2 days. She also notes increased redness and warmth. She stated she felt chilled yesterday but denies any documented fever or sweats. She denies any lightheadedness, dizziness, URI symptoms, chest pain, shortness breath, cough, nausea, vomiting, abdominal pain, change in bowel or urinary habits. Her appetite has been normal. She been taking her medications as prescribed including Lasix once daily. Previously she had been following wound clinic but currently does not. In ED patient was hemodynamically stable although mildly tachycardic. Her CBC and CMP was generally unremarkable. Venous Doppler was negative for DVT. Pt denies hx of MRSA. Allergies Allergy/AdvReac Type Severity Reaction Status Date / Time fluticasone [From Flonase] Allergy Mild burning in Verified 04/10/22 18:18 nose sulfamethoxazole Allergy Mild itchy Verified 04/10/22 18:18 [From Bactrim] trimethoprim [From Bactrim] Allergy Mild itchy Verified 04/10/22 18:18 ciprofloxacin [Cipro] AdvReac Severe DIZZY Verified 04/10/22 18:18 Home Medications Medication Instructions Recorded Confirmed Type lisinopril 10 mg tablet 10 mg PO QAM 04/17/20 06/23/22 History loratadine 10 mg tablet 10 mg PO DAILY PRN Allergy Symptoms 04/17/20 06/23/22 History rosuvastatin 5 mg tablet 5 mg PO QAM 04/17/20 06/23/22 History sertraline 50 mg tablet 75 mg PO HS 04/17/20 06/23/22 History cyclobenzaprine 10 mg tablet 10 mg PO TID PRN muscle spasms 11/05/20 06/23/22 History famotidine 40 mg tablet 40 mg PO QAM 01/09/22 06/23/22 History multivitamin 1 tab PO QAM 01/09/22 06/23/22 History acetaminophen 500 mg tablet 1,000 mg PO QID PRN Pain 01/13/22 06/23/22 History (Acetaminophen Extra Strength) furosemide 40 mg tablet 40 mg PO DAILY 06/23/22 06/23/22 History lactobacillus combination no.4 3 3,000 mmu cells PO DAILY 06/23/22 06/23/22 History billion cell capsule (Probiotic) Past Med/Surg History Medical History Breast discharge RT SIDE (REASON FOR PROCEDURE) Depression Dyslipidemia GERD (gastroesophageal reflux disease) History of COVID-19 04/2020 Hx: UTI (urinary tract infection) RECENT DX Hypertension Leg swelling REASON FOR LASIX (CURRENTLY HAS LEG SWELLING) Obesity Seasonal allergic rhinitis Surgical History History of colonoscopy History of surgery on extremity left leg cut artery History of tooth extraction Hx of lumpectomy benign Family History Mother Stomach cancer Father Colorectal cancer Other No family history of adverse response to anesthesia Social History Smoking Status: Former smoker Tobacco Type: Cigarettes Smoking End Date: 25 years ago; Second Hand Exposure: No; Hx Alcohol Use: No Hx Substance Use: No Preferred Language: Greenlandic Communication Ability: Effective Clinical Operations Manager Required: No Beliefs That Will Affect Care: None Current Living Situation: Alone Feels Safe at Home: Yes Assistive Devices: Cane Review of Systems Review of Systems: All systems reviewed & are unremarkable except as noted in HPI & below Physical Exam Physical Exam: Constitutional: WD/WN, morbidly obese, F, malodorous, vitals as above, NAD, sitting up in bed, pleasant, conversing easily Head: Normocephalic, Atraumatic Eyes: PERRL, conjunctivae normal, anicteric sclerae ENMT: external ear and nose normal, oropharynx normal Neck: trachea midline, no thyromegaly normal visual inspection Respiratory: normal respiratory effort, lungs clear to auscultation, no wheeze, rales, rhonchi. Normal insp/exp effort, no accessory muscle use Cardiovascular: tachycardic rate, regular rhythm, no murmur, b/l lower ext lymphedema with venous stasis change, warmth and redness extending proximally to L knee and mid calf region on R Vessels: no JVD or carotid bruit Chest: normal inspection of chest Abdomen: normal bowel sounds, soft, nontender, no hepatosplenomegaly Musculoskeletal: no cyanosis or clubbing, Poor ROM to b/l lower ext with hip flex/ext Skin: no rashes, warm and dry normal turgor Neurologic: PERRL, EOMI, accommodation nl, no face palsy, no dysarthria CN's II-XI intact bilaterally and moves all extremities Psychiatric: A+Ox3, euthymic affect Lymphatic: no cervical or axillary lymphadenopathy : deferred Results & Data Results & Data ([facility]) Vital Signs (Past 12 Hours) Vital Signs Temp Pulse Resp BP O2 Del Method 06/23/22 12:17 Room Air 06/23/22 11:01 104 H 06/23/22 11:01 36.8 C 118 H 20 150/86 H Diagnostic Findings Venous Doppler Study 06/23/22 11:21 BILATERAL LOWER EXTREMITY VENOUS DOPPLER CLINICAL HISTORY: Bilateral lower extremity swelling. COMPARISON STUDY: Left lower extremity venous Doppler ultrasound April 10, 2022. TECHNIQUE: Sonography of the deep venous system of the bilateral lower extremities was performed. Compression and augmentation were evaluated. FINDINGS: This exam is compromised by suboptimal penetration related to lower extremity edema. The bilateral common femoral, superficial femoral and popliteal veins were compressible. Augmentation was normal. The calf vessels were obscured. IMPRESSION: Technically compromised exam but no evidence of deep venous thrombus within the bilateral lower extremities. ACT 112: Negative or not required by law. Electronically signed by: Casimiro Diamond M.D. 06/23/2022 2:00 PM Chest X-Ray 06/23/22 11:22 SINGLE VIEW CHEST CLINICAL HISTORY: Generalized weakness. FINDINGS: 2 AP, portable, upright chest radiographs are compared to chest x-ray and chest CT dated 04/10/2022. The examination is degraded by portable technique and apical lordotic positioning. The cardiomediastinal silhouette is unremarkable. The lungs and pleural spaces are clear. No pneumothorax is seen. The bony thorax is grossly intact. IMPRESSION: No active disease in the chest. ACT 112: Negative or not required by law. Electronically signed by: Manas Hernandez M.D. 06/23/2022 11:43 AM Medications Administered Medication List Discontinued Medications Sodium Chloride (Nss) 500 mls @ 999 mls/hr IV .Q31M ROWENA Stop: 06/23/22 12:00 Last Infusion: 06/23/22 12:01 Dose: 0 mls/hr Documented By: Admin: 06/23/22 11:27 Dose: 999 mls/hr Documented By: EVER Cefepime HCl (Maxipime) 2,000 mg in 20 mls @ 5 mls/min IV NOW STA; Protocol Stop: 06/23/22 11:40 Last Admin: 06/23/22 12:43 Dose: 5 mls/min Documented By: LEANA ECG Rate (beats per minute): 106 Rhythm: sinus tachycardia Additional Comments: reviewed by me COVID-19 Results Results COVID-19 Adm Lab Results: RBC 4.34 M/uL (4.20-5.40) 06/23/22 WBC 7.39 K/ul (4.8-10.8) 06/23/22 Hgb 13.3 g/dl (12.0-16.0) 06/23/22 Hct 40.2 % (37.0-47.0) 06/23/22 Plt Count 251 K/uL (130-400) 06/23/22 Neutrophils (%) (Auto) 73.8 % 06/23/22 Lymphocytes (%) (Auto) 14.6 % 06/23/22 Monocytes # (Auto) 0.78 K/uL (0.11-0.59) H 06/23/22 Eosinophils # (Auto) 0.02 K/uL (0-0.50) 06/23/22 Immature Granulocyte % (Auto) 0.4 % 06/23/22 Neutrophils # (Auto) 5.46 K/uL (1.40-6.50) 06/23/22 Lymphocytes # (Auto) 1.08 K/uL (1.2-3.4) L 06/23/22 Monocytes # (Auto) 0.78 K/uL (0.11-0.59) H 06/23/22 Eosinophils # (Auto) 0.02 K/uL (0-0.50) 06/23/22 Basophils # (Auto) 0.02 K/uL (0-0.2) 06/23/22 Immature Granulocyte # (Auto) 0.03 K/uL (0.01-0.20) 3 Na 141 mmol/L (136-145) 06/23/22 K 4.1 mmol/L (3.5-5.1) 06/23/22 Cl 106 mmol/L (98-107) 06/23/22 CO2 26 mmol/L (21-32) 06/23/22 Anion Gap 9 (3-11) 06/23/22 BUN 15 mg/dl (6-23) 06/23/22 Creatinine 0.79 mg/dl (0.6-1.2) 06/23/22 BUN/Creatinine Ratio 19.0 (10-20) 06/23/22 Glucose Level 104 mg/dl (70-99(Fasting)) H 06/23/22 Ca 9.8 mg/dl (8.5-10.1) 06/23/22 Total Bilirubin 0.9 mg/dl (0.2-1.0) 06/23/22 AST/SGOT 18 U/L (13-39) 06/23/22 ALT/SGPT 15 U/L (7-52) 06/23/22 Alkaline Phosphatase 78 U/L (34-104) 06/23/22 Total Protein 7.2 gm/dl (6.0-8.3) 06/23/22 Albumin 4.3 gm/dl (3.4-5.0) 06/23/22 Globulin 2.9 gm/dl (2.5-4.0) 06/23/22 Albumin/Globulin Ratio 1.5 (0.9-2) 06/23/22 Total CK 54 U/L (26-192) 06/23/22 SARS-CoV-2, RNA, NAAT NEGATIVE (NEGATIVE) 06/23/22 Chest X-Ray 06/23/22 Code Status & VTE Plan Code Status FULL CODE VTE Prophylaxis Plan VTE Prophylaxis will be ordered: Yes Supervising Physician Co-Signing Physician Notes Patient seen and examined. History notable for 51-year-old woman with hypertension, lower extremity lymphedema, morbid obesity, anxiety who was brought in for worsening left leg pain and swelling for 2 days. Exam notable for obesity, bilateral lower extremity edema, erythema on both legs [left more than right], tenderness over the left leg, stasis changes, Labs unremarkable Doppler of the extremity did not show any DVT. Lower extremity cellulitis. Starts IV ceftriaxone. Continue Lasix PT/OT evaluation. Other plans as detailed by Gwen Hubbard PA-C.
--- NOTE | 2022-06-23 17:11 | Electrocardiogram Report ---
Test Reason : Blood Pressure : / mmHG Vent. Rate : 106 BPM Atrial Rate : 106 BPM P-R Int : 174 ms QRS Dur : 086 ms QT Int : 348 ms P-R-T Axes : 043 033 032 degrees QTc Int : 462 ms Sinus tachycardia Otherwise normal ECG When compared with ECG of 10-APR-2022 17:07, No significant change was found Confirmed by Yasmani Craft ([id number]) on 06/23/2022 5:10:59 PM Referred By: REFERRED SELF Confirmed By:Gallo Craft
[2022-06-23] MEDS ORDERED: POLYETHYLENE (MIRALAX) 17 GM PACK PO PRN (20:26)
[2022-06-23] MEDS ORDERED: ALUMINUM/MAGNESIUM SUSP 30 ML UDC PO PRN (20:26)
[2022-06-23] MEDS ORDERED: ONDANSETRON INJ 2 MG/ML 2 ML VIAL IV PRN (20:26)
[2022-06-23] MEDS ORDERED: LORATADINE 10 MG TAB PO PRN (20:26)
[2022-06-23] MEDS ORDERED: CYCLOBENZAPRINE HCL 10 MG TAB PO PRN (20:26)
[2022-06-23] MEDS ORDERED: MAGNESIUM HYDROXIDE SUSP 30 ML UDC PO PRN (20:26)
[2022-06-23] MEDS: SERTRALINE HCL 50 MG TABLET PO SCH (21:21)
[2022-06-23] MEDS: ENOXAPARIN INJ 40 MG/0.4 ML SYR SQ SCH (21:21)
[2022-06-23] MEDS: cefTRIAXone SODIUM 2,000 MG in DEXTROSE 5% 50 ML IV SCH (21:21)
[2022-06-24] MEDS: ACETAMINOPHEN 325 MG TAB PO PRN ×3 (00:24→19:35)
[2022-06-24 00:53] LABS: Appearance Urine Cloudy (Clear); Bacteria Urine Automated Negative (Negative); Bilirubin Urine Negative (Negative); Blood Urine Negative (Negative); Color Urine Yellow; Epithelial Cell Urine Auto >30 /lpf (0-5); Glucose Urine UA Negative (Negative); Ketones Urine Trace (Negative); Leukocyte Esterase Urine Negative (Negative); Nitrite Urine Negative (Negative); Protein Urine Negative (Negative); RBC Urine Automated 0-4 /hpf (0-4); Specific Gravity Urine 1.022 (1.000-1.030); Urobilinogen Urine Negative (Negative)
[2022-06-24] MEDS ORDERED: oxyCODONE HCL IR 5 MG TAB (IMMEDIATE RELEASE) PO STA (01:04)
[2022-06-24 06:11] LABS: Basophils # (auto) 0.03 K/uL (0-0.2); Basophils % (auto) 0.4 %; Eosinophils # (auto) 0.06 K/uL (0-0.50); Eosinophils % (auto) 0.9 %; Hematocrit (blood only) 34.6 % (37.0-47.0); Hemoglobin 11.2 g/dl (12.0-16.0); Immature Granulocytes # (auto) 0.05 K/uL (0.01-0.20); Immature Granulocytes % (auto) 0.7 %; Lymphocytes # (auto) 2.01 K/uL (1.2-3.4); Lymphocytes % (auto) 28.6 %; Mean Corpuscular Hemoglobin 30.2 pg (25.0-34.0); Mean Corpuscular Hgb Conc 32.4 g/dL (32.0-36.0); Mean Corpuscular Volume 93.3 fL (80.0-100.0); Mean Platelet Volume 10.2 fL (9.4-12.4); Monocytes # (auto) 0.86 K/uL (0.11-0.59); Monocytes % (auto) 12.2 %; Neutrophils # (auto) 4.03 K/uL (1.40-6.50); Neutrophils % (auto) 57.2 %; Platelet Count 235 K/uL (130-400); RDW Coefficient of Variation 13.8 % (11.5-14.5); RDW Standard Deviation 47.1 fL (36.4-46.3); Red Blood Count 3.71 M/uL (4.20-5.40); White Blood Count 7.04 K/ul (4.8-10.8)
[2022-06-24 06:32] LABS: Albumin Globulin Ratio 1.5 (0.9-2); Albumin Level 3.6 gm/dl (3.4-5.0); BUN Creatinine Ratio 21.2 (10-20); Bilirubin,Total 0.8 mg/dl (0.2-1.0); Calcium 8.8 mg/dl (8.5-10.1); Creatinine Clr Calc Pharmacy 109.6 ml/min; Est GFR (African American) 91.3 ml/min; Est GFR (Non-African American) 78.8 ml/min; Globulin 2.4 gm/dl (2.5-4.0); Magnesium 1.8 mg/dl (1.7-2.4); Potassium 3.9 mmol/L (3.5-5.1)
[2022-06-24] MEDS: lisinopril 10 MG TAB PO SCH (08:44)
[2022-06-24] MEDS: MULTIVITAMIN TAB PO SCH (08:44)
[2022-06-24] MEDS: FUROSEMIDE 40 MG TAB PO SCH (08:44)
[2022-06-24] MEDS: ROSUVASTATIN CALCIUM 5 MG TAB PO SCH (08:44)
[2022-06-24] MEDS: FAMOTIDINE 40 MG TABLET PO SCH (08:44)
[2022-06-24] MEDS: ADVANCED PROBIOTIC 1250 MG CAPSULE PO SCH (08:44)
[2022-06-24] MEDS: ENOXAPARIN INJ 40 MG/0.4 ML SYR SQ SCH ×2 (08:45→20:30)
--- NOTE | 2022-06-24 12:35 | Hospitalist Progress Note ---
Date of Service June 24, 2022 Assessment & Plan (1) Bilateral lower leg cellulitis: (2) Lymphedema of both lower extremities: (3) Hypertension: (4) Dyslipidemia: (5) Morbid obesity with BMI of 50.0-59.9, adult: Plan 51-year-old female who has significant past medical history of hypertension, hyperlipidemia, depression with anxiety, GERD, morbid obesity, chronic bilateral lower extremity lymphedema who presents to ED secondary to worsening left leg pain and swelling x2 days. Bilateral lower extremity cellulitis Bilateral lower extremity lymphedema Continue IV ceftriaxone for now Continue lasix PT/OT eval noted. Rehab recommended Hypertension Controlled Continue lisinopril Hyperlipidemia Morbid Obesity with BMI of 50-59.9 Continue atorvastatin Needs to loose weight Educated on life style modifications DVT ppx: Lovenox BID FULL CODE PCP:Juan Francisco There was report of poor living situation per ED provider with feces all through house CM on board for dispo/placement Admission and Anticipated Discharge Date Admission Date: June 23, 2022 Subjective Patient seen and examined. Reports feeling better today. Reports leg pain is improved. Denies any fevers, chills Denies nausea, vomiting, abdominal pain, diarrhea Reports mild cough earlier. Denies shortness of breath or chest pain Denied dysuria, frequency or urgency Physical Exam Constitutional: + well hydrated and + morbidly obese; no acute distress Eyes: PERRL, conjunctivae normal, anicteric sclerae ENMT: external ear and nose normal, oropharynx normal Respiratory: normal respiratory effort, lungs clear to auscultation Cardiovascular: Rate/Rhythm: regular rate and regular rhythm S1 S2 Gastrointestinal (Abdomen): normal bowel sounds, soft, nontender, no hepatosplenomegaly Musculoskeletal: Leg edema Erythema and tenderness over left leg improved compared to yesterday Neurologic: PERRL, EOMI, accommodation nl, no face palsy, no dysarthria Psychiatric: A+Ox3, euthymic affect Results & Data Results & Data ([facility]) Vital Signs (Past 12 Hours) Vital Signs Temp Pulse Resp BP Pulse Ox O2 Del Method 06/24/22 11:03 36.9 C 90 18 137/75 95 Room Air 06/24/22 07:32 37 C 93 H 16 126/79 97 Room Air Laboratory Results Abnormal lab results 06/24/22 06/24/22 06/24/22 Range/Units 00:25 05:26 05:26 RBC 3.71 L (4.20-5.40) M/uL Hgb 11.2 L (12.0-16.0) g/dl Hct 34.6 L (37.0-47.0) % RDW Std Deviation 47.1 H (36.4-46.3) fL [place] # (Auto) 0.86 H (0.11-0.59) K/uL Chloride 108 H (98-107) mmol/L BUN/Creatinine Ratio 21.2 H (10-20) Globulin 2.4 L (2.5-4.0) gm/dl Urine Appearance Cloudy A (Clear) Urine Ketones Trace H (Negative) Urine WBC (Auto) 5-10 H (0-5) /hpf U Epithel Cells (Auto) >30 H (0-5) /lpf
[2022-06-24] MEDS: cefTRIAXone SODIUM 2,000 MG in DEXTROSE 5% 50 ML IV SCH (20:30)
[2022-06-24] MEDS: SERTRALINE HCL 50 MG TABLET PO SCH (20:30)
[2022-06-25] MEDS: ACETAMINOPHEN 325 MG TAB PO PRN (05:25)
[2022-06-25] MEDS: FUROSEMIDE 40 MG TAB PO SCH (07:30)
[2022-06-25] MEDS: ADVANCED PROBIOTIC 1250 MG CAPSULE PO SCH (07:30)
[2022-06-25] MEDS: lisinopril 10 MG TAB PO SCH (07:30)
[2022-06-25] MEDS: MULTIVITAMIN TAB PO SCH (07:30)
[2022-06-25] MEDS: FAMOTIDINE 40 MG TABLET PO SCH (07:30)
[2022-06-25] MEDS: ROSUVASTATIN CALCIUM 5 MG TAB PO SCH (07:31)
[2022-06-25 08:38] LABS: Basophils # (auto) 0.02 K/uL (0-0.2); Basophils % (auto) 0.3 %; Eosinophils # (auto) 0.11 K/uL (0-0.50); Eosinophils % (auto) 1.8 %; Hematocrit (blood only) 36.2 % (37.0-47.0); Hemoglobin 11.8 g/dl (12.0-16.0); Immature Granulocytes # (auto) 0.03 K/uL (0.01-0.20); Immature Granulocytes % (auto) 0.5 %; Lymphocytes # (auto) 1.33 K/uL (1.2-3.4); Lymphocytes % (auto) 21.4 %; Mean Corpuscular Hgb Conc 32.6 g/dL (32.0-36.0); Mean Corpuscular Volume 92.1 fL (80.0-100.0); Mean Platelet Volume 9.9 fL (9.4-12.4); Monocytes # (auto) 0.92 K/uL (0.11-0.59); Monocytes % (auto) 14.8 %; Neutrophils % (auto) 61.2 %; Platelet Count 245 K/uL (130-400); RDW Coefficient of Variation 13.5 % (11.5-14.5); RDW Standard Deviation 46.3 fL (36.4-46.3); Red Blood Count 3.93 M/uL (4.20-5.40); White Blood Count 6.21 K/ul (4.8-10.8)
[2022-06-25 08:54] LABS: Albumin Globulin Ratio 1.4 (0.9-2); Albumin Level 3.9 gm/dl (3.4-5.0); BUN Creatinine Ratio 16.3 (10-20); Bilirubin,Total 0.6 mg/dl (0.2-1.0); Calcium 9.4 mg/dl (8.5-10.1); Creatinine Clr Calc Pharmacy 101.2 ml/min; Est GFR (Non-African American) 71.6 ml/min; Globulin 2.7 gm/dl (2.5-4.0); Magnesium 1.9 mg/dl (1.7-2.4); Potassium 4.1 mmol/L (3.5-5.1); Total Protein 6.6 gm/dl (6.0-8.3)
[2022-06-25] MEDS: ENOXAPARIN INJ 40 MG/0.4 ML SYR SQ SCH ×2 (09:55→22:32)
--- NOTE | 2022-06-25 14:21 | Hospitalist Progress Note ---
Date of Service June 25, 2022 Assessment & Plan (1) Bilateral lower leg cellulitis: (2) Lymphedema of both lower extremities: (3) Hypertension: (4) Dyslipidemia: (5) Morbid obesity with BMI of 50.0-59.9, adult: Plan 51-year-old female who has significant past medical history of hypertension, hyperlipidemia, depression with anxiety, GERD, morbid obesity, chronic bilateral lower extremity lymphedema who presents to ED secondary to worsening left leg pain and swelling x2 days. Bilateral lower extremity cellulitis Bilateral lower extremity lymphedema Change IV Rocephin to Keflex Continue lasix PT/OT eval noted. Rehab recommended Hypertension Controlled Continue lisinopril Hyperlipidemia Morbid Obesity with BMI of 50-59.9 Continue atorvastatin Needs to loose weight Educated on life style modifications DVT ppx: Lovenox BID FULL CODE PCP:Juan Francisco There was report of poor living situation per ED provider with feces all through house CM on board for dispo/placement APS involved and will need to clean her house prior to her discharge. ? Kimberly Ayers DO [facility] Hospitalist Admission and Anticipated Discharge Date Admission Date: June 24, 2022 Subjective 51-year-old female presented 2 days ago with bilateral lower leg cellulitis. Patient is morbidly obese and reports having additional pain in her lower extremities which have limited her movement in the home. She feels improved on the Rocephin antibiotic. She reportedly has a poor living situation per ER notes with feces all throughout the house. Adult Protective Services has been involved. I discussed this with the patient today who said she understood. She reports that she is able to take a cat a bus and go grocery shopping for herself. She reports having a dog and states he does not poop in the house and that she is able to walk him without much issue. She reports having trouble taking the trash out because the bags are too heavy. Review of Systems Review of Systems: All systems reviewed negative except as indicated above Physical Exam Physical Exam: CONSTITUTIONAL: obese, vitals as above, generally well-appearing EYES: normal conjunctivae, no scleral icterus ENT: external ear and nose normal, MMM NECK: trachea midline RESPIRATORY: clear to auscultation bilaterally, no crackles, rales or wheezes, normal respiratory effort CARDIOVASCULAR: regular rate and rhythm, S1 and 2 heard without murmurs, gallops or rubs, no JVD, no peripheral edema CHEST: inspection of chest was normal GASTROINTESTINAL: soft, nontender, ND, no guarding MUSCULOSKELETAL: strength 5/5 throughout, head is normocephalic and atraumatic SKIN: warm and dry, LLE>RLE erythema, foul odor to both feet. Although there are no open wounds, skin appears tense. No starr edema present. Nails are in very poor shape and not maintained. NEUROLOGIC: CN 2-12 grossly intact, no sensory deficit, normal cognition, normal speech, no tremor PSYCHIATRIC: alert cooperative and oriented to person, place and time. Euthymic mood, makes good eye contact, language grossly intact, recent and remote memory grossly intact. Results & Data Results & Data ([facility]) Vital Signs (Past 12 Hours) Vital Signs Temp Pulse Resp BP Pulse Ox O2 Del Method 06/25/22 07:27 36.9 C 84 18 113/72 94 Room Air Laboratory Results Short CBC 06/25/22 Range/Units 07:59 WBC 6.21 (4.8-10.8) K/ul Hgb 11.8 L (12.0-16.0) g/dl Hct 36.2 L (37.0-47.0) % Plt Count 245 (130-400) K/uL BMP 06/25/22 07:59 Sodium 139 Potassium 4.1 Chloride 103 Carbon Dioxide 32 BUN 15 Creatinine 0.92 Glucose 106 H Calcium 9.4 Liver Function 06/25/22 Range/Units 07:59 Total Bilirubin 0.6 (0.2-1.0) mg/dl AST 14 (13-39) U/L ALT 13 (7-52) U/L Alkaline Phosphatase 69 (34-104) U/L Albumin 3.9 (3.4-5.0) gm/dl Medications Administered Current Inpatient Medications Acetaminophen (Acetaminophen 325 Mg Tab) 650 mg PO Q4H PRN PRN Reason: Pain or Fever Stop: 07/23/22 20:25 Last Admin: 06/25/22 05:25 Dose: 650 mg Al Hydrox/Mg Hydrox/Simethicone (Aluminum/Magnesium Susp 30 Ml Udc) 15 ml PO Q4H PRN PRN Reason: Dyspepsia Stop: 07/23/22 20:25 Cyclobenzaprine HCl (Cyclobenzaprine Hcl 10 Mg Tab) 10 mg PO TID PRN PRN Reason: muscle spasms Stop: 07/23/22 20:25 Last Admin: 06/24/22 00:24 Dose: 10 mg Enoxaparin Sodium (Enoxaparin Inj 40 Mg/0.4 Ml Syr) 40 mg SQ Q12H [facility] Stop: 07/23/22 21:59 Last Admin: 06/25/22 09:55 Dose: 40 mg Famotidine (Famotidine 40 Mg Tablet) 40 mg PO QAM [facility] Stop: 07/24/22 08:59 Last Admin: 06/25/22 07:30 Dose: 40 mg Furosemide (Furosemide 40 Mg Tab) 40 mg PO DAILY [facility] Stop: 07/24/22 08:59 Last Admin: 06/25/22 07:30 Dose: 40 mg Ceftriaxone Sodium 2,000 mg/ (Dextrose) 70 mls @ 100 mls/hr IV Q24H [facility]; Protocol Stop: 06/30/22 20:44 Last Infusion: 06/24/22 21:15 Dose: Infused Lactobacillus Acidophilus (Advanced Probiotic 1250 Mg Capsule) 1 cap PO DAILY [facility] Stop: 07/24/22 08:59 Last Admin: 06/25/22 07:30 Dose: 1 cap Lisinopril (L[facility]op[facility] 10 Mg Tab) [facility] Stop: 07/24/22 08:59 Last Admin: 06/25/22 07:30 Dose: 10 mg Loratadine (Loratadine 10 Mg Tab) 10 mg PO DAILY PRN PRN Reason: Allergy Symptoms Stop: 07/23/22 20:25 Magnesium Hydroxide (Magnesium Hydroxide Susp 30 Ml Udc) 30 ml PO Q12H PRN PRN Reason: Constipation Stop: 07/23/22 20:25 Multivitamins (Multivitamin Tab) [facility] Stop: 07/24/22 08:59 Last Admin: 06/25/22 07:30 Dose: 1 tab Ondansetron HCl (Ondansetron Inj 2 Mg/Ml 2 Ml Vial) 4 mg IV Q6H PRN PRN Reason: Nausea Stop: 07/23/22 20:25 Polyethylene Glycol (Polyethylene (Miralax) 17 Gm Pack) 17 gm PO DAILY PRN PRN Reason: Constipation Stop: 07/23/22 20:25 Rosuvastatin Calcium (Rosuvastatin Calcium 5 Mg Tab) 5 mg PO QAM ROWENA Stop: 07/24/22 08:59 Last Admin: 06/25/22 07:31 Dose: 5 mg Sertraline HCl (Sertraline Hcl 50 Mg Tablet) 75 mg PO HS ROWENA Stop: 07/23/22 20:59 Last Admin: 06/24/22 20:30 Dose: 75 mg
[2022-06-25] MEDS: cephALEXin 500 MG CAP PO SCH ×2 (17:52→23:17)
[2022-06-25] MEDS: SERTRALINE HCL 50 MG TABLET PO SCH (20:41)
[2022-06-26] MEDS: cephALEXin 500 MG CAP PO SCH ×2 (05:57→11:22)
[2022-06-26] MEDS: MULTIVITAMIN TAB PO SCH (07:37)
[2022-06-26] MEDS: FUROSEMIDE 40 MG TAB PO SCH (07:37)
[2022-06-26] MEDS: FAMOTIDINE 40 MG TABLET PO SCH (07:37)
[2022-06-26] MEDS: lisinopril 10 MG TAB PO SCH (07:38)
[2022-06-26] MEDS: ADVANCED PROBIOTIC 1250 MG CAPSULE PO SCH (07:38)
[2022-06-26] MEDS: ROSUVASTATIN CALCIUM 5 MG TAB PO SCH (07:38)
[2022-06-26] MEDS: ENOXAPARIN INJ 40 MG/0.4 ML SYR SQ SCH (09:31)
--- NOTE | 2022-06-26 12:36 | Hospitalist Progress Note ---
Date of Service June 26, 2022 Assessment & Plan (1) Bilateral lower leg cellulitis: (2) Lymphedema of both lower extremities: (3) Hypertension: (4) Dyslipidemia: (5) Morbid obesity with BMI of 50.0-59.9, adult: Plan 51-year-old female who has significant past medical history of hypertension, hyperlipidemia, depression with anxiety, GERD, morbid obesity, chronic bilateral lower extremity lymphedema who presents to ED secondary to worsening left leg pain and swelling x2 days. Bilateral lower extremity cellulitis Bilateral lower extremity lymphedema Change IV Rocephin to Keflex Continue lasix PT/OT eval noted. Rehab recommended Hypertension Controlled Continue lisinopril Hyperlipidemia Morbid Obesity with BMI of 50-59.9 Continue atorvastatin Needs to loose weight Educated on life style modifications DVT ppx: Lovenox BID FULL CODE PCP:Juan Francisco There was report of poor living situation per ED provider with feces all through house CM on board for dispo/placement APS involved and will need to clean her house prior to her discharge. ? Kimberly Ayers DO [facility] Hospitalist Admission and Anticipated Discharge Date Admission Date: June 24, 2022 Subjective 51-year-old female presented 2 days ago with bilateral lower leg cellulitis. Patient is morbidly obese and reports having additional pain in her lower extremities which have limited her movement in the home. She feels improved on the Rocephin antibiotic. She reportedly has a poor living situation per ER notes with feces all throughout the house. Adult Protective Services has been involved. I discussed this with the patient today who said she understood. She reports that she is able to take a cat a bus and go grocery shopping for herself. She reports having a dog and states he does not poop in the house and that she is able to walk him without much issue. She reports having trouble taking the trash out because the bags are too heavy. Review of Systems Review of Systems: All systems reviewed negative except as indicated above Physical Exam Physical Exam: CONSTITUTIONAL: obese, vitals as above, generally well-appearing EYES: normal conjunctivae, no scleral icterus ENT: external ear and nose normal, MMM NECK: trachea midline RESPIRATORY: clear to auscultation bilaterally, no crackles, rales or wheezes, normal respiratory effort CARDIOVASCULAR: regular rate and rhythm, S1 and 2 heard without murmurs, gallops or rubs, no JVD, no peripheral edema CHEST: inspection of chest was normal GASTROINTESTINAL: soft, nontender, ND, no guarding MUSCULOSKELETAL: strength 5/5 throughout, head is normocephalic and atraumatic SKIN: warm and dry, LLE>RLE erythema, foul odor to both feet. Although there are no open wounds, skin appears tense. No starr edema present. Nails are in very poor shape and not maintained. NEUROLOGIC: CN 2-12 grossly intact, no sensory deficit, normal cognition, normal speech, no tremor PSYCHIATRIC: alert cooperative and oriented to person, place and time. Euthymic mood, makes good eye contact, language grossly intact, recent and remote memory grossly intact. Results & Data Results & Data ([facility]) Vital Signs (Past 12 Hours) Vital Signs Temp Pulse Resp BP Pulse Ox O2 Del Method 06/26/22 11:35 36.6 C 93 H 16 138/83 99 Room Air 06/26/22 07:22 36.8 C 95 H 16 142/81 H 96 Room Air Medications Administered Current Inpatient Medications Acetaminophen (Acetaminophen 325 Mg Tab) 650 mg PO Q4H PRN PRN Reason: Pain or Fever Stop: 07/23/22 20:25 Last Admin: 06/25/22 05:25 Dose: 650 mg Al Hydrox/Mg Hydrox/Simethicone (Aluminum/Magnesium Susp 30 Ml Udc) 15 ml PO Q4H PRN PRN Reason: Dyspepsia Stop: 07/23/22 20:25 Cephalexin HCl (Cephalexin 500 Mg Cap) 500 mg PO Q6H [facility] Stop: 07/02/22 17:59 Last Admin: 06/26/22 11:22 Dose: 500 mg Cyclobenzaprine HCl (Cyclobenzaprine Hcl 10 Mg Tab) 10 mg PO TID PRN PRN Reason: muscle spasms Stop: 07/23/22 20:25 Last Admin: 06/24/22 00:24 Dose: 10 mg Enoxaparin Sodium (Enoxaparin Inj 40 Mg/0.4 Ml Syr) 40 mg SQ Q12H [facility] Stop: 07/23/22 21:59 Last Admin: 06/26/22 09:31 Dose: 40 mg Famotidine (Famotidine 40 Mg Tablet) 40 mg PO QAM [facility] Stop: 07/24/22 08:59 Last Admin: 06/26/22 07:37 Dose: 40 mg Furosemide (Furosemide 40 Mg Tab) 40 mg PO DAILY [facility] Stop: 07/24/22 08:59 Last Admin: 06/26/22 07:37 Dose: 40 mg Lactobacillus Acidophilus (Advanced Probiotic 1250 Mg Capsule) 1 cap PO DAILY [facility] Stop: 07/24/22 08:59 Last Admin: 06/26/22 07:38 Dose: 1 cap Lisinopril (L[facility]op[facility] 10 Mg Tab) [facility] [place]: 07/24/22 08:59 Last Admin: 06/26/22 07:38 Dose: 10 mg Loratadine (Loratadine 10 Mg Tab) 10 mg PO DAILY PRN PRN Reason: Allergy Symptoms Stop: 07/23/22 20:25 Magnesium Hydroxide (Magnesium Hydroxide Susp 30 Ml Udc) 30 ml PO Q12H PRN PRN Reason: Constipation Stop: 07/23/22 20:25 Multivitamins (Multivitamin Tab) 1 tab PO QAM [facility] Stop: 07/24/22 08:59 Last Admin: 06/26/22 07:37 Dose: 1 tab Ondansetron HCl (Ondansetron Inj 2 Mg/Ml 2 Ml Vial) 4 mg IV Q6H PRN PRN Reason: Nausea Stop: 07/23/22 20:25 Polyethylene Glycol (Polyethylene (Miralax) 17 Gm Pack) 17 gm PO DAILY PRN PRN Reason: Constipation Stop: 07/23/22 20:25 Rosuvastatin Calcium (Rosuvastatin Calcium 5 Mg Tab) 5 mg PO QAM [facility] Stop: 07/24/22 08:59 Last Admin: 06/26/22 07:38 Dose: 5 mg Sertraline HCl (Sertraline Hcl 50 Mg Tablet) 75 mg PO [facility] Stop: 07/23/22 20:59 Last Admin: 06/25/22 20:41 Dose: 75 mg
--- NOTE | 2022-06-26 13:28 | Discharge Summary ---
Discharge Summary Date of Service June 26, 2022 Admission HPI Per Admitting Provider This is a 51-year-old female who has significant past medical history of hypertension, hyperlipidemia, depression with anxiety, GERD, morbid obesity, chronic bilateral lower extremity lymphedema who presents to ED secondary to worsening left leg pain and swelling x2 days. Patient lives alone by herself. Report given by ED provider was that she lives alone under poor conditions. Adult Protective Services have been involved and unable to reach pt for 2 weeks; therefore they had landlord checked in on patient today and the house was in bad shape, "deplorable." There was a human and animal feces everywhere including on the patient. Patient is having hard time caring for self. She denies any trauma to the leg or animal scratch. She notes worsening swelling to both of her legs, but left is worse over the past 2 days. She also notes increased redness and warmth. She stated she felt chilled yesterday but denies any documented fever or sweats. She denies any lightheadedness, dizziness, URI symptoms, chest pain, shortness breath, cough, nausea, vomiting, abdominal pain, change in bowel or urinary habits. Her appetite has been normal. She been taki ng her medications as prescribed including Lasix once daily. Previously she had been following wound clinic but currently does not. In ED patient was hemodynamically stable although mildly tachycardic. Her CBC and CMP was generally unremarkable. Venous Doppler was negative for DVT. Pt denies hx of MRSA. Principal Dx & Hospital Course #1 = Principal Diagnosis (1) Bilateral lower leg cellulitis: (2) Lymphedema of both lower extremities: (3) Hypertension: (4) Dyslipidemia: (5) Morbid obesity with BMI of 50.0-59.9, adult: Updated Medication List Medication Instructions Recorded Confirmed Type lisinopril 10 mg tablet 10 mg PO QAM 04/17/20 06/23/22 History loratadine 10 mg tablet 10 mg PO DAILY PRN Allergy Symptoms 04/17/20 06/23/22 History rosuvastatin 5 mg tablet 5 mg PO QAM 04/17/20 06/23/22 History sertraline 50 mg tablet 75 mg PO HS 04/17/20 06/23/22 History cyclobenzaprine 10 mg tablet 10 mg PO TID PRN muscle spasms 11/05/20 06/23/22 History famotidine 40 mg tablet 40 mg PO QAM 01/09/22 06/23/22 History multivitamin 1 tab PO QAM 01/09/22 06/23/22 History acetaminophen 500 mg tablet 1,000 mg PO QID PRN Pain 01/13/22 06/23/22 History (Acetaminophen Extra Strength) furosemide 40 mg tablet 40 mg PO DAILY 06/23/22 06/23/22 History lactobacillus combination no.4 3 3,000 mmu cells PO DAILY 06/23/22 06/23/22 History billion cell capsule (Probiotic) cephalexin 500 mg capsule 500 mg PO Q6H #28 caps 06/26/22 Rx Hospital Stay Data Consultations 06/23/22 13:13 ED Decision to Admit Stat 06/26/22 09:19 Consult Behavioral Health Liaison Routine Diagnostic Imagining Performed 06/23/22 11:21 US venous doppler LE BI Stat Pending Results Patient Have Any Pending Studies at Discharge: No Discharge Instructions Given to Patient (Per Discharging Provider) Please take all medications as instructed on discharge as below. Please follow-up with your primary care doctor within 1 week of discharge from snf facility. This follow-up is important to discuss treatment options for your obesity, consider a referral for podiatry to help with nail care, and explore other resources as needed to help you around her home. It was a pleasure taking care of you! Please call if you have any questions or problems. You can reach a [facility] hospitalist on duty at [facility] 24 hours a day by calling [phone]. Take care of yourself. Kimberly Ayers, [facility] Centerist
== END 2022-06-26 14:47 | DRG 603 ==
LOC: EDINP 10:52 → ED 10:52 → 3N 10:52 → SUATTDRO 06-24 17:40

== ENCOUNTER 2022-07-25 21:34 | Inpatient (IN) ==
[2022-07-25] MEDS ORDERED: diphenhydrAMINE 50 MG/ML VIAL ONE (21:42)
[2022-07-25] MEDS ORDERED: FAMOTIDINE 20MG IV PUSH 20 MG/5 ML SYR IV STA (21:58)
[2022-07-25] MEDS ORDERED: methylPREDNISolone 125 MG/2 ML VIAL IV STA (21:58)
[2022-07-25 22:31] LABS: Albumin Globulin Ratio 1.4 (0.9-2); Albumin Level 4.2 gm/dl (3.4-5.0); BUN Creatinine Ratio 22.4 (10-20); Bilirubin,Total 0.5 mg/dl (0.2-1.0); Calcium 9.6 mg/dl (8.6-10.3); Creatinine Clr Calc Pharmacy 99.6 ml/min; Est GFR (African American) 91.3 ml/min; Est GFR (Non-African American) 78.8 ml/min; Globulin 3.1 gm/dl (2.5-4.0); Total Protein 7.3 gm/dl (6.0-8.3)
[2022-07-25 22:35] LABS: Basophils # (auto) 0.03 K/uL (0-0.2); Basophils % (auto) 0.3 %; Eosinophils # (auto) 0.01 K/uL (0-0.50); Eosinophils % (auto) 0.1 %; Hematocrit (blood only) 39.3 % (37.0-47.0); Hemoglobin 12.7 g/dl (12.0-16.0); Immature Granulocytes # (auto) 0.04 K/uL (0.01-0.20); Immature Granulocytes % (auto) 0.4 %; Lymphocytes # (auto) 1.36 K/uL (1.2-3.4); Lymphocytes % (auto) 12.5 %; Mean Corpuscular Hemoglobin 30.1 pg (25.0-34.0); Mean Corpuscular Hgb Conc 32.3 g/dL (32.0-36.0); Mean Corpuscular Volume 93.1 fL (80.0-100.0); Monocytes # (auto) 0.72 K/uL (0.11-0.59); Monocytes % (auto) 6.6 %; Neutrophils # (auto) 8.73 K/uL (1.40-6.50); Neutrophils % (auto) 80.1 %; Platelet Count 294 K/uL (130-400); RDW Coefficient of Variation 13.5 % (11.5-14.5); RDW Standard Deviation 45.9 fL (36.4-46.3); Red Blood Count 4.22 M/uL (4.20-5.40); White Blood Count 10.89 K/ul (4.8-10.8)
[2022-07-25] MEDS ORDERED: LACTATED RINGER'S 1,000 ML IV ONE (23:16)
--- NOTE | 2022-07-25 23:35 | History & Physical Report ---
Date of Service July 25, 2022 Assessment & Plan (1) Angioedema: Plan: History ACEI home Rx Possible mast cell mediated reaction given pruritus complaints Significant improvement after initial ER intervention. Patient currently without signs of upper airway obstruction. hypertension, stable hyperlipidemia, on statin Rx morbid obesity chronic venous insufficiency on diuretic Rx Hyperglycemia rule out DM past tobacco abuse OBS PCU Monitor for upper airway obstruction Stop lisinopril and add to allergy/ADR list Loratadine daily for now May benefit from additional steroid Rx Outpatient allergy consultation Consider losartan as alternative BP Rx Check hemoglobin A1c DVT prophylaxis. Lovenox subcu Full code Text document was generated using [employer] Check recognition software. It may contain grammatical or spelling errors. Kindly contact undersigned for clarification of any documentation item in question. History of Present Illness Chief Complaint: Lip swelling, chest tightness Primary Care Provider: Faizan Chicas MD History obtained from patient and records. Medical history significant for hypertension, hyperlipidemia, GERD, morbid obesity, chronic venous insufficiency, past tobacco abuse. Last confinement last month for bilateral LE cellulitis status post antibiotic Rx. Patient discharged on Keflex Rx. Patient was eating a cinnamon bun with walnuts this afternoon when she noticed lower lip swelling, perioral numbness, chest tightness, some shortness of breath, and pruritus. Patient has consumed walnut pastry before without issues. No tongue swelling, no voice change. No previous episodes as per patient. Patient has been on lisinopril for a number of years now. Patient worried about allergic reaction. Minimal response to OTC Benadryl intake at home. EMS called to patient's home. IV Solu-Medrol and Famotidine administered at the ER. Patient currently feels much better. Medical History as above Surgical History : Tonsillectomy, vascular surgery of the left lower extremity following trauma Family History : Colon cancer, stomach cancer Personal/Social history : Past tobacco abuse, no EtOH intake, disabled Allergies Allergy/AdvReac Type Severity Reaction Status Date / Time lisinopril Allergy Severe angioedema Verified 07/25/22 23:51 fluticasone [From Flonase] Allergy Mild burning in Verified 07/25/22 23:24 nose sulfamethoxazole Allergy Mild itchy Verified 07/25/22 23:24 [From Bactrim] trimethoprim [From Bactrim] Allergy Mild itchy Verified 07/25/22 23:24 ciprofloxacin [Cipro] AdvReac Severe DIZZY Verified 07/25/22 23:24 Home Medications Medication Instructions Recorded Confirmed Type lisinopril 10 mg tablet 10 mg PO QAM 04/17/20 07/25/22 History loratadine 10 mg tablet 10 mg PO DAILY PRN Allergy Symptoms 04/17/20 07/25/22 History rosuvastatin 5 mg tablet 5 mg PO QAM 04/17/20 07/25/22 History sertraline 50 mg tablet 75 mg PO HS 04/17/20 07/25/22 History cyclobenzaprine 10 mg tablet 10 mg PO TID PRN muscle spasms 11/05/20 07/25/22 History multivitamin 1 tab PO QAM 01/09/22 07/25/22 History acetaminophen 500 mg tablet 1,000 mg PO QID PRN Pain 01/13/22 07/25/22 History (Acetaminophen Extra Strength) furosemide 40 mg tablet 40 mg PO DAILY 06/23/22 07/25/22 History lactobacillus combination no.4 3 3,000 mmu cells PO DAILY 06/23/22 07/25/22 History billion cell capsule (Probiotic) potassium chloride 10 mEq 10 meq PO DAILY 07/25/22 07/25/22 History capsule,extended release Past Med/Surg History Medical History Breast discharge RT SIDE (REASON FOR PROCEDURE) Depression Dyslipidemia GERD (gastroesophageal reflux disease) History of COVID-19 04/2020 Hx: UTI (urinary tract infection) RECENT DX Hypertension Leg swelling REASON FOR LASIX (CURRENTLY HAS LEG SWELLING) Obesity Seasonal allergic rhinitis Surgical History History of colonoscopy History of surgery on extremity left leg cut artery History of tooth extraction Hx of lumpectomy benign Family History Mother Stomach cancer Father Colorectal cancer Other No family history of adverse response to anesthesia Social History Smoking Status: Former smoker Tobacco Type: Cigarettes Second Hand Exposure: No; Hx Alcohol Use: No Hx Substance Use: No Preferred Language: Eritrean Communication Ability: Effective Rfid Developer Required: No Beliefs That Will Affect Care: None Current Living Situation: Alone Current Living Situation Comment: " I HAVE A FIANCE THAT COMES BACK AND FORTH TO SEE ME" Feels Safe at Home: Yes Assistive Devices: Cane and Walker Review of Systems Review of Systems: As per HPI, all other systems reviewed and negative Physical Exam Physical Exam: GENERAL: Comfortable, pleasant, morbidly obese, no respiratory distress, no stridor SKIN: Normal color, warm HEENT: Bespectacled, Binger palpebral conjunctivae, no ptosis, moist buccal mucosa, lower lip swelling NECK : Supple, short neck, no tenderness CHEST : CTA, no tenderness HEART : RRR, no obvious murmurs ABDOMEN: distention, nontender EXTREMITIES : Minimal LE swelling, no LE tenderness, no other conspicuous deformities noted NEUROLOGIC : Coherent, no facial asymmetry, no other gross focality Results & Data Results & Data Vital Signs (Past 12 Hours) Vital Signs Temp Pulse Resp BP Pulse Ox O2 Del Method 07/25/22 21:50 103 H 07/25/22 22:08 98 Room Air 07/25/22 21:43 36.7 C 98 H 20 132/88 95 Room Air Laboratory Results Laboratory Results WBC 10.89 K/ul (4.8-10.8) H 07/25/22 21:57 RBC 4.22 M/uL (4.20-5.40) 07/25/22 21:57 Hgb 12.7 g/dl (12.0-16.0) 07/25/22 21:57 Hct 39.3 % (37.0-47.0) 07/25/22 21:57 MCV 93.1 fL (80.0-100.0) 07/25/22 21:57 MCH 30.1 pg (25.0-34.0) 07/25/22 21:57 MCHC 32.3 g/dL (32.0-36.0) 07/25/22 21:57 RDW Std Deviation 45.9 fL (36.4-46.3) 07/25/22 21:57 RDW Coeff of Antonio 13.5 % (11.5-14.5) 07/25/22 21:57 Plt Count 294 K/uL (130-400) 07/25/22 21:57 MPV 10.0 fL (9.4-12.4) 07/25/22 21:57 Immature Gran % (Auto) 0.4 % 07/25/22 21:57 Neut % (Auto) 80.1 % 07/25/22 21:57 Lymph % (Auto) 12.5 % 07/25/22 21:57 Phelps % (Auto) 6.6 % 07/25/22 21:57 Eos % (Auto) 0.1 % 07/25/22 21:57 Baso % (Auto) 0.3 % 07/25/22 21:57 Neut # (Auto) 8.73 K/uL (1.40-6.50) H 07/25/22 21:57 Lymph # (Auto) 1.36 K/uL (1.2-3.4) 07/25/22 21:57 Phelps # (Auto) 0.72 K/uL (0.11-0.59) H 07/25/22 21:57 Eos # (Auto) 0.01 K/uL (0-0.50) 07/25/22 21:57 Baso # (Auto) 0.03 K/uL (0-0.2) 07/25/22 21:57 Immature Gran # (Auto) 0.04 K/uL (0.01-0.20) 07/25/22 21:57 Sodium 140 mmol/L (136-145) 07/25/22 21:57 Potassium 4.0 mmol/L (3.5-5.1) 07/25/22 21:57 Chloride 104 mmol/L (98-107) 07/25/22 21:57 Carbon Dioxide 28 mmol/L (21-32) 07/25/22 21:57 Anion Gap 8 (3-11) 07/25/22 21:57 BUN 19 mg/dl (6-23) 07/25/22 21:57 Creatinine 0.85 mg/dl (0.6-1.2) 07/25/22 21:57 Est Cr Clr Drug Dosing 99.6 ml/min 07/25/22 21:57 Est GFR ( Amer) 91.3 ml/min 07/25/22 21:57 Est GFR (Non-Af Amer) 78.8 ml/min 07/25/22 21:57 BUN/Creatinine Ratio 22.4 (10-20) H 07/25/22 21:57 Glucose 123 mg/dl (70-99(Fasting)) H 07/25/22 21:57 Calcium 9.6 mg/dl (8.6-10.3) 07/25/22 21:57 Total Bilirubin 0.5 mg/dl (0.2-1.0) 07/25/22 21:57 AST 16 U/L (13-39) 07/25/22 21:57 ALT 14 U/L (7-52) 07/25/22 21:57 Alkaline Phosphatase 79 U/L (34-104) 07/25/22 21:57 Total Protein 7.3 gm/dl (6.0-8.3) 07/25/22 21:57 Albumin 4.2 gm/dl (3.4-5.0) 07/25/22 21:57 Globulin 3.1 gm/dl (2.5-4.0) 07/25/22 21:57 Albumin/Globulin Ratio 1.4 (0.9-2) 07/25/22 21:57 SARS-CoV-2, RNA, NAAT NEGATIVE (NEGATIVE) 07/25/22 22:12 Diagnostic Findings EKG as per my interpretation :
[2022-07-26 00:14] LABS: Magnesium 1.8 mg/dl (1.7-2.4)
[2022-07-26] MEDS ORDERED: CYCLOBENZAPRINE HCL 10 MG TAB PO PRN (01:19)
[2022-07-26] MEDS ORDERED: ACETAMINOPHEN 325 MG TAB PO PRN (01:19)
--- NOTE | 2022-07-26 01:36 | Emergency Department Note ---
Impression & Plan Angioedema ED Provider Note INFORMANT: Patient ED PROVIDER(S): Abdoulaye Carpenter MD CHIEF COMPLAINT: Allergic reaction PLAN: Disposition: Admitted Condition: Good Outpatient prescription management: none Referral: None MEDICAL DECISION MAKING: Patient presented to the emergency department complaining of allergic reaction. On physical examination this was more concerning for angioedema given her KERRY inhibitor use. The patient had received Benadryl prehospital. 2 see if there was any effect the patient was given Pepcid and Solu-Medrol. She tolerated these well. She still had swelling of the lower lip. She did not have significant issues with the tongue or airway at this time. Given the situation and persistent swelling monitoring in the hospital was felt to be most appropriate. Patient was in agreement. [facility] Case was discussed and diagnostics were reviewed. Patient was evaluated in the ER and admitted for further management. Discussed with maintenance shop manager After review of the information above and other included data, I feel the patient requires admission. Triage Nursing notes reviewed and agree them. Vital Signs: reviewed and remarkable for hypertension Prior /Outside records reviewed: none Differential diagnosis: Angioedema, allergic reaction, anaphylaxis, urticaria, Sousa-Burke syndrome, toxic epidermal necrolysis, erythema multiforme, contact dermatitis, cellulitis, as well as other pathologies. Diagnostics, as interpreted by me: ECG: none Cardiac Monitoring: Cardiac monitoring ordered by me: The patient was placed on continuous cardiac monitoring and observed. It revealed a normal sinus rhythm at 95 beats per minute without ectopy or evidence of dysrhythmia. Medical decision rules: none Imaging studies: Deferred HPI: The patient is a 51year old female who presents to the Emergency Room with complaints of allergic reaction. This started just prior to arrival and is i solated to the lower lip. The patient also notes the following associated symptoms, some tingling around her lips and some transient tightness in the chest which resolved. The patient has taken Benadryl at home and was given Benadryl prehospital for relieving factors. Current pain is rated as 0/10. Patient thinks it was from eating a sticky bun that had nuts on it. She has not known to have an allergy to nuts. Patient also notes she does take lisinopril for blood pressure. Pt denies LOC, headache, fevers, chills, diaphoresis, visual changes, neck pain, tongue swelling, chest pain, breathing difficulties, nausea, vomiting, abdominal pain, back pain, urinary symptoms, numbness, weakness, lymphadenopathy, rash, or other complaints. PAST MEDICAL HISTORY: See Below, hypertension PAST SURGICAL HISTORY: See Below, SOCIAL HISTORY: See Below, quit smoking HOME MEDICATIONS: See Below ALLERGIES: See Below VITALS: See Below PHYSICAL EXAMINATION: GENERAL: Awake, alert, anxious-appearing, in no distress HENT: Normocephalic, atraumatic. There is significant swelling of the lower lip that was symmetrical bilaterally. Floor the mouth, tongue and airway appear unremarkable. Remainder of face is not swollen. EYES: Normal conjunctiva. Sclera non-icteric. NECK: Inspection normal. Non-tender. Supple. No nuchal rigidity. FROM. No masses. RESPIRATORY: Clear to auscultation. No wheezes. No rales. Normal respiratory effort. CARDIAC: Normal rate. Normal rhythm. No murmurs. No rubs. Extremities warm and well perfused. Pulses equal. No JVD. GI: Soft, non-distended. No tenderness to palpation. No rebound or guarding. No masses. MUSCULOSKELETAL: Atraumatic. Chest examination reveals no tenderness. The back is symmetrical on inspection without obvious abnormality. There is no CVA tenderness to palpation. No joint edema. LOWER EXTREMITIES: Calves are equal size bilaterally and non-tender. 2+edema. No discoloration. NEURO: Normal sensorium. No sensory or motor deficits noted. SKIN: No rash or jaundice noted. Past Med/Surg History Medical History Breast discharge RT SIDE (REASON FOR PROCEDURE) Depression Dyslipidemia GERD (gastroesophageal reflux disease) History of COVID-19 04/2020 Hx: UTI (urinary tract infection) RECENT DX Hypertension Leg swelling REASON FOR LASIX (CURRENTLY HAS LEG SWELLING) Obesity Seasonal allergic rhinitis Surgical History History of colonoscopy History of surgery on extremity left leg cut artery History of tooth extraction Hx of lumpectomy benign Family History Mother Stomach cancer Father Colorectal cancer Other No family history of adverse response to anesthesia Social History Smoking Status: Former smoker Tobacco Type: Cigarettes Second Hand Exposure: No; Hx Alcohol Use: No Hx Substance Use: No Preferred Language: Greek Communication Ability: Effective Environmental Permitting Specialist Required: No Beliefs That Will Affect Care: None Current Living Situation: Alone Feels Safe at Home: Yes Assistive Devices: Cane and Walker Allergies Allergies Allergy/AdvReac Type Severity Reaction Status Date / Time lisinopril Allergy Severe angioedema Verified 07/25/22 23:51 fluticasone [From Flonase] Allergy Mild burning in Verified 07/25/22 23:24 nose sulfamethoxazole Allergy Mild itchy Verified 07/25/22 23:24 [From Bactrim] trimethoprim [From Bactrim] Allergy Mild itchy Verified 07/25/22 23:24 ciprofloxacin [Cipro] AdvReac Severe DIZZY Verified 07/25/22 23:24 Home Meds Home Medications Medication Instructions Recorded Confirmed lisinopril 10 mg tablet 10 mg PO QAM 04/17/20 07/25/22 loratadine 10 mg tablet 10 mg PO DAILY PRN Allergy Symptoms 04/17/20 07/25/22 rosuvastatin 5 mg tablet 5 mg PO QAM 04/17/20 07/25/22 sertraline 50 mg tablet 75 mg PO HS 04/17/20 07/25/22 cyclobenzaprine 10 mg tablet 10 mg PO TID PRN muscle spasms 11/05/20 07/25/22 multivitamin 1 tab PO QAM 01/09/22 07/25/22 acetaminophen 500 mg tablet 1,000 mg PO QID PRN Pain 01/13/22 07/25/22 (Acetaminophen Extra Strength) furosemide 40 mg tablet 40 mg PO DAILY 06/23/22 07/25/22 lactobacillus combination no.4 3 3,000 mmu cells PO DAILY 06/23/22 07/25/22 billion cell capsule (Probiotic) potassium chloride 10 mEq 10 meq PO DAILY 07/25/22 07/25/22 capsule,extended release Results & Data (ED) Vital Signs Vital Signs - 24 hr 07/25/22 21:43 07/25/22 22:08 07/25/22 21:50 Temperature 36.7 C Temperature Source Oral Pulse Rate 98 H 103 H Respiratory Rate 20 Blood Pressure 132/88 Blood Pressure Mean 102 Pulse Oximetry 95 98 Oxygen Delivery Method Room Air Room Air Sepsis Recent Fever Within 48 Hours No Sepsis New/Unexplained Change in Mental Status N/A Sepsis Action Taken by Nursing No Action Required Laboratory Data 07/25/22 21:57 07/25/22 21:57 Lab Results 07/25/22 07/25/22 07/25/22 Range/Units 21:57 21:57 22:12 WBC 10.89 H (4.8-10.8) K/ul RBC 4.22 (4.20-5.40) M/uL Hgb 12.7 (12.0-16.0) g/dl Hct 39.3 (37.0-47.0) % MCV 93.1 (80.0-100.0) fL MCH 30.1 (25.0-34.0) pg MCHC 32.3 (32.0-36.0) g/dL RDW Std Deviation 45.9 (36.4-46.3) fL RDW Coeff of Antonio 13.5 (11.5-14.5) % Plt Count 294 (130-400) K/uL MPV 10.0 (9.4-12.4) fL Immature Gran % (Auto) 0.4 % Neut % (Auto) 80.1 % Lymph % (Auto) 12.5 % Hill % (Auto) 6.6 % Eos % (Auto) 0.1 % Baso % (Auto) 0.3 % Neut # (Auto) 8.73 H (1.40-6.50) K/uL Lymph # (Auto) 1.36 (1.2-3.4) K/uL Hill # (Auto) 0.72 H (0.11-0.59) K/uL Eos # (Auto) 0.01 (0-0.50) K/uL Baso # (Auto) 0.03 (0-0.2) K/uL Immature Gran # (Auto) 0.04 (0.01-0.20) K/uL Sodium 140 (136-145) mmol/L Potassium 4.0 (3.5-5.1) mmol/L Chloride 104 (98-107) mmol/L Carbon Dioxide 28 (21-32) mmol/L Anion Gap 8 (3-11) BUN 19 (6-23) mg/dl Creatinine 0.85 (0.6-1.2) mg/dl Est Cr Clr Drug Dosing 99.6 ml/min Est GFR ( Amer) 91.3 ml/min Est GFR (Non-Af Amer) 78.8 ml/min BUN/Creatinine Ratio 22.4 H (10-20) Glucose 123 H (70-99(Fasting)) mg/dl Calcium 9.6 (8.6-10.3) mg/dl Magnesium 1.8 (1.7-2.4) mg/dl Total Bilirubin 0.5 (0.2-1.0) mg/dl AST 16 (13-39) U/L ALT 14 (7-52) U/L Alkaline Phosphatase 79 (34-104) U/L Total Protein 7.3 (6.0-8.3) gm/dl Albumin 4.2 (3.4-5.0) gm/dl Globulin 3.1 (2.5-4.0) gm/dl Albumin/Globulin Ratio 1.4 (0.9-2) SARS-CoV-2, RNA, NAAT NEGATIVE (NEGATIVE) Administered Medications Lactated Ringer's (Lr) 1,000 mls @ 80 mls/hr IV .[id number] ONE Stop: 07/26/22 11:45 Last Admin: 07/25/22 23:42 Dose: 80 mls/hr Documented By: JULIANA Discontinued Medications Famotidine (Pepcid 20mg Iv Push) 20 mg in 5 mls @ 2.5 mls/min IV NOW STA Stop: 07/25/22 21:59 Last Admin: 07/25/22 22:14 Dose: 2.5 mls/min Documented By: JULIANA Methylprednisolone (Methylprednisolone 125 Mg/2 Ml Vial) 125 mg IV NOW STA Stop: 07/25/22 21:59 Last Admin: 07/25/22 22:14 Dose: 125 mg Documented By: JULIANA Discharge Plan Visit Data Chief Complaint: Allergic Reaction Stated Complaint: Ate nuts, Rash, Chest Tightness,Swelling Lower Lip ED Provider: Abdoulaye Carpenter Discharge Problem: Angioedema Patient Disposition: Admitted As Inpatient Discharge Instructions Interventions: ED Discharge Assessment Last Done: 07/26/22 00:29
[2022-07-26] MEDS ORDERED: MAGNESIUM SULFATE / D5W 1 GM/100 ML BAG IV ONE (03:01)
[2022-07-26 05:52] LABS: Basophils # (auto) 0.01 K/uL (0-0.2); Basophils % (auto) 0.1 %; Hematocrit (blood only) 36.4 % (37.0-47.0); Hemoglobin 11.8 g/dl (12.0-16.0); Immature Granulocytes # (auto) 0.05 K/uL (0.01-0.20); Immature Granulocytes % (auto) 0.6 %; Lymphocytes # (auto) 0.78 K/uL (1.2-3.4); Lymphocytes % (auto) 10.1 %; Mean Corpuscular Hemoglobin 30.3 pg (25.0-34.0); Mean Corpuscular Hgb Conc 32.4 g/dL (32.0-36.0); Mean Corpuscular Volume 93.3 fL (80.0-100.0); Monocytes # (auto) 0.09 K/uL (0.11-0.59); Monocytes % (auto) 1.2 %; Neutrophils # (auto) 6.81 K/uL (1.40-6.50); Platelet Count 262 K/uL (130-400); RDW Coefficient of Variation 13.6 % (11.5-14.5); RDW Standard Deviation 46.2 fL (36.4-46.3); White Blood Count 7.74 K/ul (4.8-10.8)
[2022-07-26 06:04] LABS: BUN Creatinine Ratio 20.3 (10-20); Calcium 9.2 mg/dl (8.6-10.3); Creatinine Clr Calc Pharmacy 115.7 ml/min; Est GFR (African American) 99.8 ml/min; Est GFR (Non-African American) 86.1 ml/min; Potassium 4.4 mmol/L (3.5-5.1)
[2022-07-26] MEDS: ENOXAPARIN INJ 40 MG/0.4 ML SYR SQ SCH (08:10)
[2022-07-26] MEDS: ROSUVASTATIN CALCIUM 5 MG TAB PO SCH (08:11)
[2022-07-26] MEDS: ADVANCED PROBIOTIC 1250 MG CAPSULE PO SCH (08:11)
[2022-07-26] MEDS: MULTIVITAMIN TAB PO SCH (08:11)
[2022-07-26] MEDS: LORATADINE 10 MG TAB PO SCH (08:11)
--- NOTE | 2022-07-26 09:21 | XRay Report ---
SINGLE VIEW CHEST CLINICAL HISTORY: Chest tightness FINDINGS: An AP, portable, upright chest radiograph is compared to study dated 06/23/2022 and correlat ed with chest CT dated 04/10/2022. The examination is degraded by portable technique and apical lordot ic positioning. The cardiomediastinal silhouette is unremarkable. The lungs and pleural spaces are cl ear noting mild bibasilar atelectasis. No pneumothorax is seen. The bony thorax is grossly intact. IMPRESSION: No active disease in the chest. ACT 112: Negative or not required by law. Electronically signed by: Manas Hernandez M.D. 07/26/2022 9:20 AM
[2022-07-26 09:24] LABS: Estimated Average Glucose 117 mg/dl; Hemoglobin A1C 5.7 % (4.5-5.6)
[2022-07-26] MEDS ORDERED: EUCERIN CR 120 GM JAR EXT PRN (10:35)
[2022-07-26] MEDS: diphenhydrAMINE Capsule 25 MG CAP PO SCH ×2 (10:44→17:33)
[2022-07-26] MEDS: methylPREDNISolone 40 MG in SYRINGE 0 ML IV SCH ×2 (10:44→17:33)
[2022-07-26] MEDS: FAMOTIDINE 20 MG TAB PO SCH ×2 (10:44→20:19)
--- NOTE | 2022-07-26 12:31 | Electrocardiogram Report ---
Test Reason : Blood Pressure : / mmHG Vent. Rate : 089 BPM Atrial Rate : 089 BPM P-R Int : 160 ms QRS Dur : 088 ms QT Int : 384 ms P-R-T Axes : 061 034 051 degrees QTc Int : 467 ms Normal sinus rhythm Normal ECG When compared with ECG of 23-JUN-2022 12:12, No significant change was found Confirmed by Landon Massey ([id number]) on 07/26/2022 12:31:36 PM Referred By: REFERRED SELF Confirmed By:Landon Massey
--- NOTE | 2022-07-26 12:31 | Hospitalist Progress Note ---
Date of Service July 26, 2022 Assessment & Plan (1) Angioedema: Plan 51-year-old lady with PMH of HTN, HLD, GERD, morbid obesity, chronic venous insufficiency and past tobacco abuse who was recently treated for bilateral LE cellulitis presented to the ED 07/25 after having lower lip swelling/perioral numbness/chest tightness/wheezing/shortness of breath/pleuritis while eating cinnamon bun with walnuts in the afternoon of the day of arrival. Patient reports having been able to eat cinnamon and all kinds of nuts including walnuts in the past with no problem. She denies any previous episodes of lip swelling or anaphylaxis. Patient has been on lisinopril for a number of years now. She is being managed for the following: Anaphylactic reaction Angioedema Patient presents with lower lip swelling/upper abdominal pain/chest tightness/wheezing/shortness of breath on 07/25 [see above] --> likely mast cell mediated reaction --> lisinopril placed in allergy list 07/25/22. Patient on lisinopril for a number of years now. Patient with history of being able to eat cinnamon and various kinds of nuts including walnuts in the past. Received steroid and famotidine in the ED with improvement in her symptoms. Patient is still with significant lip swelling, mildly engorged oropharynx mucosa, some epigastric tenderness on exam, reports improving shortness of breath/wheezing. We will continue with the steroid/famotidine/Benadryl for now. Will change to admit status. Monitor for upper airway obstruction. Patient advised to follow-up with recovery collector on discharge, no allergy coverage in the hospital during the weekend. Patient provided with information regarding angioedema and KERRY inhibitors. Patient will need epinephrine prescription upon discharge. Other chronic medical conditions: HTN, HLD --resume home meds Morbid obesity -counseling regarding heart healthy diet and need for regular exercise regimen done. Pt reports she follows w/ telegraph service clerk and is working towards losing weight. Chronic venous insufficiency -continue with diuretic treatment Prediabetes: A1c of 5.7, counseled regarding heart healthy diet and need for regular exercise as above. Follow-up closely with PCP office for long-term management. Pt aware. DVT prophylaxis: Lovenox Full code Admission and Anticipated Discharge Date Admission Date: July 25, 2022 Subjective Patient seen and examined at bedside as a follow-up of anaphylactic reaction and angioedema likely secondary to medication lisinopril. Patient was lying semiupright in bed, on room air, NAD, reports no new acute event overnight. Patient reports her nausea and belly pain is slowly getting better, still with significant swelling of the lips and some swelling of the throat, reports improvement in her wheezing and shortness of breath. Patient denies headache or dizziness or chest pain. Patient reports being able to eat cinnamon or various kinds of nuts including walnuts in the past without any problem. Physical Exam Physical Exam: GENERAL: Alert and oriented x3. NAD, on RA. HEENT: No pallor, no icterus. Pupils equal, round and reactive to light. Oral mucosa moist. Lower lip swelling, engorged oropharynx mucosa. NECK: No JVD, no neck masses. HEART: S1 and S2 heard. Regular rate and rhythm. No murmur, no gallop. RESPIRATORY SYSTEM: Normal AP diameter. No accessory muscle use. No wheezing, no crackles. ABDOMEN: Soft, bowel sounds present, mild epigastric tender, no distention. CENTRAL NERVOUS SYSTEM: No facial droop. Speech is clear. Obeys simple commands. Moves extremities. EXTREMITIES: 2+ edema, mild ant stubbs erythema seen but not indicative of infection. Results & Data Results & Data Vital Signs (Past 12 Hours) Vital Signs Temp Pulse Pulse Resp BP Pulse Ox O2 Del Method 07/26/22 11:37 36.8 C 94 H 18 127/75 95 Room Air 07/26/22 10:27 79 07/26/22 07:40 36.7 C 81 18 129/73 96 Room Air 07/26/22 03:48 36.5 C 93 H 14 115/74 93 Room Air 07/26/22 02:13 107 H 07/26/22 01:26 36.7 C 101 H 17 144/89 H 96 Room Air
[2022-07-26] MEDS: FUROSEMIDE 40 MG TAB PO SCH (12:32)
[2022-07-26] MEDS: SERTRALINE HCL 50 MG TABLET PO SCH (20:20)
[2022-07-27] MEDS: diphenhydrAMINE Capsule 25 MG CAP PO SCH ×3 (02:00→17:43)
[2022-07-27] MEDS: methylPREDNISolone 40 MG in SYRINGE 0 ML IV SCH ×2 (02:00→08:21)
[2022-07-27] MEDS: ROSUVASTATIN CALCIUM 5 MG TAB PO SCH (08:20)
[2022-07-27] MEDS: LORATADINE 10 MG TAB PO SCH (08:21)
[2022-07-27] MEDS: POTASSIUM CHLORIDE 10 MEQ TABCR PO SCH (08:21)
[2022-07-27] MEDS: FUROSEMIDE 40 MG TAB PO SCH (08:21)
[2022-07-27] MEDS: MULTIVITAMIN TAB PO SCH (08:21)
[2022-07-27] MEDS: FAMOTIDINE 20 MG TAB PO SCH ×2 (08:21→19:55)
[2022-07-27] MEDS: ADVANCED PROBIOTIC 1250 MG CAPSULE PO SCH (08:21)
[2022-07-27] MEDS: ENOXAPARIN INJ 40 MG/0.4 ML SYR SQ SCH (08:22)
[2022-07-27 09:40] LABS: Hematocrit (blood only) 36.1 % (37.0-47.0); Hemoglobin 11.8 g/dl (12.0-16.0); Mean Corpuscular Hemoglobin 30.1 pg (25.0-34.0); Mean Corpuscular Hgb Conc 32.7 g/dL (32.0-36.0); Mean Corpuscular Volume 92.1 fL (80.0-100.0); Mean Platelet Volume 10.1 fL (9.4-12.4); Platelet Count 312 K/uL (130-400); RDW Coefficient of Variation 13.8 % (11.5-14.5); Red Blood Count 3.92 M/uL (4.20-5.40); White Blood Count 14.59 K/ul (4.8-10.8)
[2022-07-27 10:29] LABS: Calcium 9.1 mg/dl (8.6-10.3); Magnesium 1.8 mg/dl (1.7-2.4); Potassium 3.7 mmol/L (3.5-5.1)
[2022-07-27 10:34] LABS: BUN Creatinine Ratio 19.4 (10-20); Creatinine Clr Calc Pharmacy 100.5 ml/min; Est GFR (African American) 81.9 ml/min; Est GFR (Non-African American) 70.7 ml/min; Phosphorus 3.1 mg/dl (2.5-4.9)
--- NOTE | 2022-07-27 12:11 | Discharge Summary ---
Date of Service July 27, 2022 Admission HPI Per Admitting Provider History obtained from patient and records. Medical history significant for hypertension, hyperlipidemia, GERD, morbid obesity, chronic venous insufficiency, past tobacco abuse. Last confinement last month for bilateral LE cellulitis status post antibiotic Rx. Patient discharged on Keflex Rx. Patient was eating a cinnamon bun with walnuts this afternoon when she noticed lower lip swelling, perioral numbness, chest tightness, some shortness of breath, and pruritus. Patient has consumed walnut pastry before without issues. No tongue swelling, no voice change. No previous episodes as per patient. Patient has been on lisinopril for a number of years now. Patient worried about allergic reaction. Minimal response to OTC Benadryl intake at home. EMS called to patient's home. IV Solu-Medrol and Famotidine administered at the ER. Patient currently feels much better. Medical History as above Surgical History : Tonsillectomy, vascular surgery of the left lower extremity following trauma Family History : Colon cancer, stomach cancer Personal/Social history : Past tobacco abuse, no EtOH intake, disabled Admission Exam Per Admitting Provider GENERAL: Comfortable, pleasant, morbidly obese, no respiratory distress, no stridor SKIN: Normal color, warm HEENT: Bespectacled, [place] palpebral conjunctivae, no ptosis, moist buccal mucosa, lower lip swelling NECK : Supple, short neck, no tenderness CHEST : CTA, no tenderness HEART : RRR, no obvious murmurs ABDOMEN: distention, nontender EXTREMITIES : Minimal LE swelling, no LE tenderness, no other conspicuous deformities noted NEUROLOGIC : Coherent, no facial asymmetry, no other gross focality Principal Diagnosis Anaphylactic reaction Angioedema Discharge Exam GENERAL: Alert and oriented x3. NAD, on RA. HEENT: No pallor, no icterus. Pupils equal, round and reactive to light. Oral mucosa moist. Lower lip swelling, engorged oropharynx mucosa -- both has improved significantly today. NECK: No JVD, no neck masses. HEART: S1 and S2 heard. Regular rate and rhythm. No murmur, no gallop. RESPIRATORY SYSTEM: Normal AP diameter. No accessory muscle use. No wheezing, no crackles. ABDOMEN: Soft, bowel sounds present, no epigastric tender, no distention. CENTRAL NERVOUS SYSTEM: No facial droop. Speech is clear. Obeys simple commands. Moves extremities. EXTREMITIES: 2+ edema, mild ant stubbs erythema seen but not indicative of infection. Discharge Data Allergies Allergy/AdvReac Type Severity Reaction Status Date / Time lisinopril Allergy Severe angioedema Verified 07/25/22 23:51 fluticasone [From Flonase] Allergy Mild burning in Verified 07/25/22 23:24 nose sulfamethoxazole Allergy Mild itchy Verified 07/25/22 23:24 [From Bactrim] trimethoprim [From Bactrim] Allergy Mild itchy Verified 07/25/22 23:24 ciprofloxacin [Cipro] AdvReac Severe DIZZY Verified 07/25/22 23:24 Consultations 07/25/22 23:24 ED Decision to Admit Stat Hospital Course (1) Angioedema: Plan 51-year-old lady with PMH of HTN, HLD, GERD, morbid obesity, chronic venous insufficiency and past tobacco abuse who was recently treated for bilateral LE cellulitis presented to the ED 07/25 after having lower lip swelling/perioral numbness/chest tightness/wheezing/shortness of breath/pleuritis while eating cinnamon bun with walnuts in the afternoon of the day of arrival. Patient reports having been able to eat cinnamon and all kinds of nuts including walnuts in the past with no problem. She denies any previous episodes of lip swelling or anaphylaxis. Patient has been on lisinopril for a number of years now. She was managed for the following: Anaphylactic reaction Angioedema Patient presents with lower lip swelling/upper abdominal pain/chest tightness/wheezing/shortness of breath on 07/25 [see above] --> likely mast cell mediated reaction --> lisinopril placed in allergy list 07/25/22. Patient on lisinopril for a number of years now. Patient with history of being able to eat cinnamon and various kinds of nuts including walnuts in the past. Received steroid and famotidine in the ED with improvement in her symptoms. Lip swelling and oropharyngeal edema has gotten better, will continue with loratadine/famotidine/tapering dose of steroid/as needed Benadryl for 5 to 7 days upon discharge. Patient will be discharged on epinephrine, patient to follow-up with oil seal assembler upon discharge. Patient made aware. Patient reports feeling better, no shortness of breath or wheezing or abdominal pain or nausea or vomiting. Patient provided with information regarding angioedema and KERRY inhibitors. Other chronic medical conditions: HTN, HLD --resume home meds Morbid obesity -counseling regarding heart healthy diet and need for regular exercise regimen done. Pt reports she follows w/ barn worker and is working towards losing weight. Chronic venous insufficiency -continue with diuretic treatment Prediabetes: A1c of 5.7, counseled regarding heart healthy diet and need for regular exercise as above. Follow-up closely with PCP office for long-term management. Pt aware. Ambulatory dysfunction: Patient reports her rolling walker has broken, new prescription provided. DVT prophylaxis: Lovenox Full code Patient being discharged to home with following instruction at the point of discharge Follow-up with your primary care physician within a week time and likely you will need labs CBC/CMP/magnesium/phosphorus. Coordinate with your PCP office for referral to oil seal assembler, follow-up with oil seal assembler in about 2 weeks upon discharge. Your lisinopril has been discontinued because of angioedema and anaphylactic reaction, your blood pressure has been better without any addition of another blood pressure medication at this time. Recommend to measure blood pressure twice a day and maintain a log to take to your primary care physician to see whether or not you will need any further blood pressure medication addition. You will be discharged on few days course of steroids/Zyrtec/famotidine/Benadryl. You will also be discharged on EpiPen which you will need to carry with you all the time. In the setting of an allergic reaction, you should use the epinephrine autoinjectorimmediatelyif you: Are having trouble breathing Feel tightness in the throat Feel lightheaded or think you might pass out After using First dose of epi pen, call 911 or emergency immediately. Be aware that a second dose may be needed if symptoms do not appear to be stabilizing or improving, and this may be given 5 to 15 minutes after the first dose. Maintain heart healthy diet and regular exercise regimen as discussed at the bedside, maintain follow-up with your dietitian as an outpatient. As discussed at the bedside, you have been diagnosed with prediabetes with A1c of 5.7, maintain follow-up with your PCP for ongoing management, you will need A1c level repeated in 3 months time. Take your medications as prescribed. Please make sure that you are able to get your medications today by calling your pharmacy before you leave the hospital so that your treatment continuity is not broken. Home Health Attestation I certify that this patient is under my care and that I, or a physicians registered sales assistant working with me, had a face to-face encounter that meets the home health [id number] encounter requirements with this patient. The encounter with the patient was in whole, or in part, for the following medical condition, which is the primary reason for home health care (list medical condition): I certify that, based on my findings, the following services are medically necessary home health services: My clinical findings support the need for the above services because: Further, I certify that my clinical findings support that this patient is homebound (i.e. absences from home require considerable and taxing effort and are for medical reasons or jewish services or infrequently or of short duration when for other reasons) because: Certification for Home Health Services: Based on the above findings, I certify that this patient is confined to the home and needs intermittent long-term care, physical therapy and/or speech therapy or continues to need occupational therapy. The patient is under my care, and I have initiated the establishment of the plan of care. This patient will be followed by a physician who will periodically review the plan of care. Total Time Total Time Spent Total Time Spent (In Minutes): 50 Discharge Plan Discharge Items Patient Disposition: Home - Self-Care Reason For Visit: CP, ANGIOEDEMA Discharge Diagnosis: Anaphylactic reaction Angioedema Activity: Resume your previous activity Non-emergency contact: Primary Care Provider Call non-emergency contact if: you have any medication questions, your symptoms worsen and your temperature is above 101 Follow-up/Referrals: Faizan Chicas MD [Primary Care Provider] - Diet: Heart Healthy Fluids: 1800ml (7 cups) Diet Texture: Easy to Chew Addtl Attending Provider Instructions: Follow-up with your primary care physician within a week time and likely you will need labs CBC/CMP/magnesium/phosphorus. Coordinate with your PCP office for referral to oil seal assembler, follow-up with oil seal assembler in about 2 weeks upon discharge. Your lisinopril has been discontinued because of angioedema and anaphylactic reaction, your blood pressure has been better without any addition of another blood pressure medication at this time. Recommend to measure blood pressure twice a day and maintain a log to take to your primary care physician to see whether or not you will need any further blood pressure medication addition. You will be discharged on few days course of steroids/Zyrtec/famotidine/Benadryl. You will also be discharged on EpiPen which you will need to carry with you all the time. In the setting of an allergic reaction, you should use the epinephrine autoinjectorimmediatelyif you: Are having trouble breathing Feel tightness in the throat Feel lightheaded or think you might pass out After using First dose of epi pen, call 911 or emergency immediately. Be aware that a second dose may be needed if symptoms do not appear to be stabilizing or improving, and this may be given 5 to 15 minutes after the first dose. Maintain heart healthy diet and regular exercise regimen as discussed at the bedside, maintain follow-up with your dietitian as an outpatient. As discussed at the bedside, you have been diagnosed with prediabetes with A1c of 5.7, maintain follow-up with your PCP for ongoing management, you will need A1c level repeated in 3 months time. Take your medications as prescribed. Please make sure that you are able to get your medications today by calling your pharmacy before you leave the hospital so that your treatment continuity is not broken. Pending Studies at Discharge: No Stand-Alone Forms: My [facility], Smoking Cessation Medications and DC Order Prescriptions: New loratadine [Wal-itin] 10 mg Tablet 10 mg PO QAM 7 Days Qty: 7 0RF diphenhydramine HCl [Benadryl] 25 mg Capsule 25 mg PO Q8H PRN (Reason: allergy symptoms) 7 Days Qty: 21 0RF famotidine 20 mg Tablet 20 mg PO BID 7 Days Qty: 14 0RF methylprednisolone 4 mg tablets,dose pack 4 mg PO UD Qty: 21 0RF Rx Instructions: Use tapering dose until completion (6 days) epinephrine [Auvi-Q] 0.3 mg/0.3 mL auto-injector 0.3 mg IM UD PRN (Reason: anaphylaxis) Qty: 2 0RF Rx Instructions: Use as prescribed for allergic/anaphylaxis/angioedema. Can use second dose if no improvement in symptoms in 5-15 minutes. Continued sertraline 50 mg tablet 75 mg PO HS Rx Instructions: TAKE ONE AND ONE HALF TABLETS ONCE A DAY loratadine 10 mg Tablet 10 mg PO DAILY PRN (Reason: Allergy Symptoms) rosuvastatin 5 mg tablet 5 mg PO QAM cyclobenzaprine 10 mg tablet 10 mg PO TID PRN (Reason: muscle spasms) furosemide 40 mg tablet 40 mg PO DAILY Probiotic 3 billion cell Capsule 3,000 mmu cells PO DAILY Rx Instructions: administer with a meal potassium chloride 10 mEq capsule, extended release 10 meq PO DAILY multivitamin Tablet 1 tab PO QAM acetaminophen [Acetaminophen Extra Strength] 500 mg Tablet 1,000 mg PO QID PRN (Reason: Pain) Discontinued lisinopril 10 mg tablet 10 mg PO QAM Discharge Orders: Discharge Order (Routine); Ordered 07/27/22 Ordered By: Anthony Strauss Admission Data Admit Date/Time: 07/26/22 12:29 Attending Provider: Anthony Strauss Admit Provider: Geovanni Lopes Primary Care Provider: Faizan Chicas Other Providers: Geovanni Lopes
--- NOTE | 2022-07-27 16:00 | Hospitalist Progress Note ---
Date of Service July 27, 2022 Assessment & Plan (1) Angioedema: Plan 51-year-old lady with PMH of HTN, HLD, GERD, morbid obesity, chronic venous insufficiency and past tobacco abuse who was recently treated for bilateral LE cellulitis presented to the ED 07/25 after having lower lip swelling/perioral numbness/chest tightness/wheezing/shortness of breath/pleuritis while eating cinnamon bun with walnuts in the afternoon of the day of arrival. Patient reports having been able to eat cinnamon and all kinds of nuts including walnuts in the past with no problem. She denies any previous episodes of lip swelling or anaphylaxis. Patient has been on lisinopril for a number of years now. She was managed for the following: Anaphylactic reaction Angioedema Patient presents with lower lip swelling/upper abdominal pain/chest tightness/wheezing/shortness of breath on 07/25 [see above] --> likely mast cell mediated reaction --> lisinopril placed in allergy list 07/25/22. Patient on lisinopril for a number of years now. Patient with history of being able to eat cinnamon and various kinds of nuts including walnuts in the past. Received steroid and famotidine in the ED with improvement in her symptoms. Lip swelling and oropharyngeal edema has gotten better, will continue with loratadine/famotidine/tapering dose of steroid/as needed Benadryl for 5 to 7 days upon discharge. Patient will be discharged on epinephrine, patient to follow-up with machine group leader upon discharge. Patient made aware. Patient reports feeling better, no shortness of breath or wheezing or abdominal pain or nausea or vomiting. Patient provided with information regarding angioedema and KERRY inhibitors. Other chronic medical conditions: HTN, HLD --resume home meds Morbid obesity -counseling regarding heart healthy diet and need for regular exercise regimen done. Pt reports she follows w/ instrument technician helper and is working towards losing weight. Chronic venous insufficiency -continue with diuretic treatment Prediabetes: A1c of 5.7, counseled regarding heart healthy diet and need for regular exercise as above. Follow-up closely with PCP office for long-term management. Pt aware. Ambulatory dysfunction: Patient reports her rolling walker has broken, new prescription provided. DVT prophylaxis: Lovenox Full code Dispo: CM to assist /w dc planning, pt/ot to eval Admission and Anticipated Discharge Date Admission Date: July 26, 2022 Subjective Patient seen and examined at bedside as a follow-up of anaphylactic reaction and angioedema likely secondary to medication lisinopril. Patient was lying semiupright in bed, on room air, NAD, reports no new acute event overnight. Patient denies any shortness of breath or abdominal pain, patient reports improving rash and lip swelling. Patient denies headache or dizziness or chest pain. Of note, patient reports being able to eat cinnamon or various kinds of nuts inc luding walnuts in the past without any problem. Physical Exam Physical Exam: GENERAL: Alert and oriented x3. NAD, on RA. HEENT: No pallor, no icterus. Pupils equal, round and reactive to light. Oral mucosa moist. Lower lip swelling, engorged oropharynx mucosa -- both has improved significantly today. NECK: No JVD, no neck masses. HEART: S1 and S2 heard. Regular rate and rhythm. No murmur, no gallop. RESPIRATORY SYSTEM: Normal AP diameter. No accessory muscle use. No wheezing, no crackles. ABDOMEN: Soft, bowel sounds present, no epigastric tender, no distention. CENTRAL NERVOUS SYSTEM: No facial droop. Speech is clear. Obeys simple commands. Moves extremities. EXTREMITIES: 2+ edema, mild ant stubbs erythema seen but not indicative of infection. Results & Data Results & Data Vital Signs (Past 12 Hours) Vital Signs Temp Pulse Pulse Resp BP Pulse Ox O2 Del Method 07/27/22 12:49 36.5 C 75 18 115/68 97 Room Air 07/27/22 11:31 78 07/27/22 08:35 36.6 C 89 20 108/73 96 Room Air 07/27/22 04:10 36.5 C 79 20 113/71 97 Room Air
[2022-07-27] MEDS: SERTRALINE HCL 50 MG TABLET PO SCH (19:55)
[2022-07-28] MEDS: diphenhydrAMINE Capsule 25 MG CAP PO SCH ×3 (00:21→17:09)
[2022-07-28] MEDS: ENOXAPARIN INJ 40 MG/0.4 ML SYR SQ SCH (08:20)
[2022-07-28] MEDS: LORATADINE 10 MG TAB PO SCH (08:21)
[2022-07-28] MEDS: FAMOTIDINE 20 MG TAB PO SCH (08:21)
[2022-07-28] MEDS: ADVANCED PROBIOTIC 1250 MG CAPSULE PO SCH (08:22)
[2022-07-28] MEDS: ROSUVASTATIN CALCIUM 5 MG TAB PO SCH (08:22)
[2022-07-28] MEDS: MULTIVITAMIN TAB PO SCH (08:22)
[2022-07-28] MEDS: POTASSIUM CHLORIDE 10 MEQ TABCR PO SCH (08:22)
[2022-07-28] MEDS: FUROSEMIDE 40 MG TAB PO SCH (08:22)
[2022-07-28] MEDS ORDERED: methylPREDNISolone 40 MG in SYRINGE 0 ML IV SCH (09:00)
[2022-07-28] MEDS ORDERED: FLUCONAZOLE 50 MG TAB PO ONE (17:45)
== END 2022-07-28 18:35 | disposition home health service (06) | DRG 916 ==
LOC: 2S 21:34 → ED 21:34 → 2S 07-26 00:29 → 3W 07-27 17:23

== ENCOUNTER 2024-03-29 15:50 | Inpatient (IN) ==
[2024-03-29 16:23] LABS: Basophils # (auto) 0.03 K/uL (0.00-0.20); Basophils % (auto) 0.2 %; Hematocrit (blood only) 42.7 % (37.0-47.0); Immature Granulocytes # (auto) 0.06 K/uL (0.01-0.20); Immature Granulocytes % (auto) 0.4 %; Lymphocytes # (auto) 0.82 K/uL (1.20-3.40); Lymphocytes % (auto) 5.6 %; Mean Corpuscular Hemoglobin 29.8 pg (25.0-34.0); Mean Corpuscular Hgb Conc 32.8 g/dL (32.0-36.0); Mean Corpuscular Volume 90.9 fL (80.0-100.0); Mean Platelet Volume 9.9 fL (9.4-12.4); Monocytes # (auto) 0.93 K/uL (0.11-0.59); Monocytes % (auto) 6.3 %; Neutrophils # (auto) 12.87 K/uL (1.40-6.50); Neutrophils % (auto) 87.5 %; Platelet Count 281 K/uL (130-400); RDW Coefficient of Variation 12.7 % (11.5-14.5); RDW Standard Deviation 41.8 fL (36.4-46.3); White Blood Count 14.71 K/ul (4.8-10.8)
[2024-03-29 16:47] LABS: Albumin Globulin Ratio 1.4 (0.9-2); Albumin Level 4.5 gm/dl (3.4-5.0); BUN Creatinine Ratio 17.8 (10-20); Calcium 10.1 mg/dl (8.6-10.3); Creatinine Clr Calc Pharmacy 84.8 ml/min; Globulin 3.2 gm/dl (2.5-4.0); Magnesium 1.7 mg/dl (1.7-2.4); Potassium 3.7 mmol/L (3.5-5.1); Total Protein 7.7 gm/dl (6.0-8.3)
[2024-03-29 16:56] LABS: INR 1.1 (0.9-1.1); Prothrombin Time 11.4 Seconds (9.0-12.0); Troponin I High Sensitivity 640.9 pg/ml (0-14)
--- NOTE | 2024-03-29 17:00 | XRay Report ---
EXAM: Radiograph of the Chest 1 View INDICATION: Chest pain. TECHNIQUE: Frontal view of the chest. COMPARISON: 06/18/2023 FINDINGS: Lungs and pleural spaces: No consolidation or pulmonary edema. No pleural effusion or pneumothorax. Heart: Shape and configuration within normal limits allowing for technique. Mediastinum: Normal contour. Bones/joints: No fracture, erosion or dislocation. Soft tissues: No abnormality noted. No radiopaque foreign body noted. Upper abdomen: No abnormality noted. IMPRESSION: No abnormality noted. ACT 112: Negative or not required by law. Electronically signed by Yu Reynolds 03-29-2024 5:00 PM
[2024-03-29 17:01] LABS: D Dimer 19370 ug/L FEU (0-500)
--- NOTE | 2024-03-29 17:16 | Emergency Department Note ---
Impression & Plan Bilateral pulmonary embolism, Elevated troponin, Hypoxia ED Provider Note NAME: ANDREW Castro RIDER AGE: 53 SEX: F : 1970 ARRIVES VIA: Ambulance INFORMANT: Patient ED PROVIDER(S): Sunny Gamble MD CHIEF COMPLAINT: chest pain, shortness of breath. PLAN: Disposition: Admit MEDICAL DECISION MAKING: The patient is a pleasant 53-year-old woman with a past medical history of hypertension, hyperlipidemia, asthma, history of COVID-19 in June of this year, morbid obesity with BMI of 48 who presents to the emergency department via EMS for acute onset chest pain and shortness of breath that began this morning in the setting of having mild shortness of breath yesterday. She reports the symptoms became acutely severe throughout today and could not catch her breath. She denies any recent immobilization and reports she does get around easily with her walker. She denies any recent surgeries. She reports some mild cough and congestion over the past several days. She denies any fevers. She has any nausea, vomiting or diarrhea. On evaluation the patient is uncomfortable but in no acute distress, afebrile with heart in the 130s and O2 saturation in the mid to upper 80s on room air improving to the mid 90s on 2 L nasal cannula. BP stable. Patient appears clinically dry. Lungs are clear. EKG without overt acute ischemia. CXR negative for acute cardiopulmonary process per my personal preliminary review/interpretation. WBC 14.7 K with neutrophilia but no left shift. H/H and platelets within normal limits. Chemistry without metabolic acidosis. LFTs are unremarkable. Initial high-sensitivity troponin 600 with delta 2-hour HS troponin 788. BNP is within normal limits though in the setting of the patient's morbid obesity. Lipase is not elevated. Respiratory BioFire was negative. CTA of the chest was performed and demonstrates extensive pulmonary emboli bilaterally extending from the distal main pulmonary arteries through the subsegmental level bilaterally with CT evidence of right heart strain. Findings reviewed with the patient at the bedside and she denies any history of GI bleeding. Treatment initiated with IV heparin bolus and drip. We did discuss the extent of her pulmonary emboli and she agreed with discussion with [facility] to see if she would be a candidate for CDT given her heart strain/submassive PE. Case was discussed with [facility] IR, Dr. Verde. He was able to review the patient's images which were transmitted electronically via [email or web address]. Due to the distal location within the main pulmonary artery of the patient's PE the patient would not be a candidate for thrombectomy at this time. Agrees with admission to our facility for IV heparin treatment. Case discussed with [facility] with Dr. Metcalf ICU/pulmonology. Agrees with treatment with IV heparin. No indication for tPA at this time. Recommends formal echocardiogram. Appreciated consultations and recommendations. Patient was updated increase with plan for admission to our facility. Patient's heart rate with trending improvement. Case was discussed with Dr. Delgadillo, [facility], who will evaluate the patient for admission. Further management per admitting team. Triage Nursing notes reviewed and agree them. Prior/external medical records reviewed Vital Signs: reviewed Differential diagnosis: Cardiac ischemia, aortic dissection, pulmonary embolism, pneumothorax, pneumonia, pericarditis, myocarditis, esophageal rupture, GERD, cholecystitis, pancreatitis, musculoskeletal, as well as other pathologies. ER treatment provided: See below. Diagnostics interpreted by me: ECG: Sinus tachycardia, 129 bpm, no ectopy, no overt ST elevation or depression, QTc 454, QRS 82. Cardiac Monitoring: An order for continuous cardiac monitoring was placed and demonstrated Sinus tachycardia, 129 bpm, no ectopy. Laboratory studies: See below Imaging studies: See below Consultation(s): [facility], Dr. Verde. [facility] with Dr. Metcalf ICU/pulmonology. HPI: The patient is a pleasant 53-year-old woman with a past medical history of hypertension, hyperlipidemia, asthma, history of COVID-19 in June of this year, morbid obesity with BMI of 48 who presents to the emergency department via EMS for acute onset chest pain and shortness of breath that began this morning in the setting of having mild shortness of breath yesterday. She reports the symptoms became acutely severe throughout today and could not catch her breath. She denies any recent immobilization and reports she does get around easily with her walker. She denies any recent surgeries. She reports some mild cough and congestion over the past several days. She denies any fevers. She has any nausea, vomiting or diarrhea. ROS: See above HPI for pertinent positives & negatives. A total of 10 systems reviewed and were otherwise negative. VITALS:See Below PHYSICAL EXAMINATION: GENERAL: Awake, alert, dyspneic-appearing, in no acute distress, BMI 48.8. HENT: Normocephalic, atraumatic. Oropharynx with dry mucous membranes and otherwise unremarkable. EYES: Normal conjunctiva. Sclera non-icteric. NECK: Supple. No nuchal rigidity. FROM. No JVD. RESPIRATORY: Clear to auscultation. CARDIAC: Tachycardic rate, normal rhythm. Extremities warm and well perfused. Pulses equal. ABDOMEN: Soft, non-distended. No tenderness to palpation. No rebound or guarding. No masses. MUSCULOSKELETAL: Chest examination reveals no tenderness. The back is symmetrical on inspection without obvious abnormality. There is no CVA tenderness to palpation. No joint edema. LOWER EXTREMITIES: Calves are equal size bilaterally and non-tender. No edema. No discoloration. NEURO: Normal sensorium. No sensory or motor deficits noted. SKIN: No rash or jaundice noted. ED COURSE: Critical Care: I have personally spent greater than 55 minutes of critical care time in the direct management of this patient. This includes bedside care, interpretation of diagnostic studies, and testing, discussion with consultants, patient, and family members, and other required patient management activities. This 55 minutes is in excess of all separately billable procedures. Sunny Gamble MD Past Med/Surg History Problem List (Updated 03/29/24 @ 20:20 by Sunny Gamble MD) Hypoxia (Acute) Elevated troponin (Acute) Bilateral pulmonary embolism (Acute) COVID-19 (Acute) COVID-19 (Acute) Cellulitis (Acute) Pedal edema (Acute) Tachycardia (Acute) Angioedema (Acute) Morbid obesity with BMI of 50.0-59.9, adult Hypertension Lymphedema of both lower extremities Bilateral lower leg cellulitis Status post tooth extraction (Chronic) COVID-19 (Acute) Encounter for pre-operative examination Family history of colon cancer Depression (Chronic) Dyslipidemia (Chronic) Seasonal allergic rhinitis (Chronic) GERD (gastroesophageal reflux disease) (Chronic) Obesity (Chronic) Medical History Weakness Breast discharge RT SIDE (REASON FOR PROCEDURE) Hx: UTI (urinary tract infection) RECENT DX Leg swelling REASON FOR LASIX (CURRENTLY HAS LEG SWELLING) History of COVID-19 04/2020 Surgical History Hx of lumpectomy benign History of tooth extraction History of colonoscopy History of surgery on extremity left leg cut artery Family History Mother Stomach cancer Father Colorectal cancer Other No family history of adverse response to anesthesia Social History Smoking Status: Never smoker Tobacco Type: Cigarettes Second Hand Exposure: No; Do You Dip or Chew Tobacco: No; Hx Alcohol Use: No Hx Substance Use: No Preferred Language: Turkmen Communication Ability: Effective Shear Assembler Required: No Beliefs That Will Affect Care: None Current Living Situation: Alone Current Living Situation Comment: " I HAVE A FIANCE THAT COMES BACK AND FORTH TO SEE ME" Feels Safe at Home: Yes Assistive Devices: None Allergies Allergies Allergy/AdvReac Type Severity Reaction Status Date / Time lisinopril Allergy Severe angioedema Verified 03/29/24 21:31 fluticasone [From Flonase] Allergy Mild burning in Verified 03/29/24 21:31 nose sulfamethoxazole Allergy Mild itchy Verified 03/29/24 21:31 [From Bactrim] trimethoprim [From Bactrim] Allergy Mild itchy Verified 03/29/24 21:31 ciprofloxacin [Cipro] AdvReac Severe DIZZY Verified 03/29/24 21:31 Home Meds Home Medications Medication Instructions Recorded Confirmed loratadine 10 mg tablet 10 mg PO QAM Allergy Symptoms 04/17/20 03/29/24 rosuvastatin 5 mg tablet 5 mg PO QAM 04/17/20 03/29/24 sertraline 50 mg tablet 75 mg PO QAM 04/17/20 03/29/24 potassium chloride 10 mEq 10 meq PO QAM 07/25/22 03/29/24 capsule,extended release albuterol sulfate 90 mcg/actuation 2 puff inhalation Q6 PRN Wheezing 03/29/24 03/29/24 aerosol inhaler amlodipine 5 mg tablet 5 mg PO QAM 03/29/24 03/29/24 cyclobenzaprine 10 mg tablet 10 mg PO BID PRN Muscle Spasm 03/29/24 03/29/24 furosemide 40 mg tablet 40 mg PO QAM 03/29/24 03/29/24 hydrochlorothiazide 12.5 mg capsule 12.5 mg PO QAM 03/29/24 03/29/24 multivitamin (Daily-Sabrina tablet) 1 tab PO DAILY 03/29/24 03/29/24 Previous Rx's Medication Instructions Recorded epinephrine 0.3 mg/0.3 mL 0.3 mg (0.3 mL) IM UD PRN 07/27/22 injection, auto-injector (Auvi-Q) anaphylaxis #2 ea Results & Data (ED) Vital Signs Vital Signs - 24 hr 03/29/24 15:51 03/29/24 16:08 03/29/24 16:11 Temperature 36.6 C Temperature Source Oral Pulse Rate 132 H Pulse Rate [Finger] Pulse Rate from SpO2 Sensor Respiratory Rate 22 Respiratory Effort / Characteristics Non-Labored Spontaneous Non-Labored Spontaneous Respiratory Depth Normal Normal Respiratory Pattern Regular Regular Blood Pressure 109/86 Blood Pressure [Left Arm] Blood Pressure Mean 93 Blood Pressure Mean [Left Arm] Blood Pressure Position [Left Arm] Pulse Oximetry 92 88 L Oxygen Delivery Method Nasal Cannula Room Air Nasal Cannula Oxygen Flow Rate 2 2 Sepsis Recent Fever Within 48 Hours No Sepsis New/Unexplained Change in Mental Status No Sepsis Action Taken by Nursing Physician Notified Oxygen Flow Rate - Titration 2 Pulse Oximetry Post Tiitration 92 03/29/24 16:57 03/29/24 17:03 03/29/24 17:31 Temperature Temperature Source Pulse Rate 123 H 121 H 122 H Pulse Rate [Finger] Pulse Rate from SpO2 Sensor 120 H 122 H Respiratory Rate 15 18 Respiratory Effort / Characteristics Respiratory Depth Respiratory Pattern Blood Pressure 116/82 109/73 Blood Pressure [Left Arm] Blood Pressure Mean 93 104 Blood Pressure Mean [Left Arm] Blood Pressure Position [Left Arm] Pulse Oximetry 93 92 Oxygen Delivery Method Oxygen Flow Rate Sepsis Recent Fever Within 48 Hours Sepsis New/Unexplained Change in Mental Status Sepsis Action Taken by Nursing Oxygen Flow Rate - Titration Pulse Oximetry Post Tiitration 03/29/24 18:00 03/29/24 18:30 03/29/24 19:00 Temperature Temperature Source Pulse Rate 118 H 115 H 119 H Pulse Rate [Finger] Pulse Rate from SpO2 Sensor 116 H 115 H 119 H Respiratory Rate 19 18 24 Respiratory Effort / Characteristics Respiratory Depth Respiratory Pattern Blood Pressure 121/80 130/91 132/100 Blood Pressure [Left Arm] Blood Pressure Mean 93 104 109 Blood Pressure Mean [Left Arm] Blood Pressure Position [Left Arm] Pulse Oximetry 94 97 96 Oxygen Delivery Method Oxygen Flow Rate Sepsis Recent Fever Within 48 Hours Sepsis New/Unexplained Change in Mental Status Sepsis Action Taken by Nursing Oxygen Flow Rate - Titration Pulse Oximetry Post Tiitration 03/29/24 19:36 03/29/24 20:00 03/29/24 20:29 Temperature Temperature Source Pulse Rate 115 H 113 H Pulse Rate [Finger] 112 H Pulse Rate from SpO2 Sensor 115 H 115 H Respiratory Rate 24 25 H 18 Respiratory Effort / Characteristics Non-Labored Spontaneous Respiratory Depth Normal Respiratory Pattern Blood Pressure 113/86 111/89 Blood Pressure [Left Arm] 137/96 Blood Pressure Mean 95 96 Blood Pressure Mean [Left Arm] 109 Blood Pressure Position [Left Arm] Sitting Pulse Oximetry 97 98 97 Oxygen Delivery Method Room Air Oxygen Flow Rate Sepsis Recent Fever Within 48 Hours Sepsis New/Unexplained Change in Mental Status Sepsis Action Taken by Nursing Oxygen Flow Rate - Titration Pulse Oximetry Post Tiitration 03/29/24 20:30 03/29/24 20:51 03/29/24 21:00 Temperature Temperature Source Pulse Rate 115 H 109 H 112 H Pulse Rate [Finger] Pulse Rate from SpO2 Sensor 114 H 112 H Respiratory Rate 27 H 25 H Respiratory Effort / Characteristics Respiratory Depth Respiratory Pattern Blood Pressure 137/96 101/74 Blood Pressure [Left Arm] Blood Pressure Mean 109 83 Blood Pressure Mean [Left Arm] Blood Pressure Position [Left Arm] Pulse Oximetry 98 97 Oxygen Delivery Method Oxygen Flow Rate 2 Sepsis Recent Fever Within 48 Hours Sepsis New/Unexplained Change in Mental Status Sepsis Action Taken by Nursing Oxygen Flow Rate - Titration Pulse Oximetry Post Tiitration 03/29/24 21:30 03/29/24 22:00 Temperature Temperature Source Pulse Rate 106 H 108 H Pulse Rate [Finger] Pulse Rate from SpO2 Sensor 107 H 107 H Respiratory Rate 19 24 Respiratory Effort / Characteristics Respiratory Depth Respiratory Pattern Blood Pressure 114/80 115/77 Blood Pressure [Left Arm] Blood Pressure Mean 91 89 Blood Pressure Mean [Left Arm] Blood Pressure Position [Left Arm] Pulse Oximetry 98 97 Oxygen Delivery Method Oxygen Flow Rate Sepsis Recent Fever Within 48 Hours Sepsis New/Unexplained Change in Mental Status Sepsis Action Taken by Nursing Oxygen Flow Rate - Titration Pulse Oximetry Post Tiitration Laboratory Data Attestation: I reviewed the patient's lab results. 03/29/24 16:00 03/29/24 16:00 Lab Results 03/29/24 03/29/24 03/29/24 Range/Units 16:00 16:03 17:51 WBC 14.71 H (4.8-10.8) K/ul RBC 4.70 (4.20-5.40) M/uL Hgb 14.0 (12.0-16.0) g/dl Hct 42.7 (37.0-47.0) % MCV 90.9 (80.0-100.0) fL MCH 29.8 (25.0-34.0) pg MCHC 32.8 (32.0-36.0) g/dL RDW Std Deviation 41.8 (36.4-46.3) fL RDW Coeff of Antonio 12.7 (11.5-14.5) % Plt Count 281 (130-400) K/uL MPV 9.9 (9.4-12.4) fL Immature Gran % (Auto) 0.4 % Neut % (Auto) 87.5 % Lymph % (Auto) 5.6 % [place] % (Auto) 6.3 % Eos % (Auto) 0.0 % Baso % (Auto) 0.2 % Neut # (Auto) 12.87 H (1.40-6.50) K/uL Lymph # (Auto) 0.82 L (1.20-3.40) K/uL [place] # (Auto) 0.93 H (0.11-0.59) K/uL Eos # (Auto) 0.00 (0.00-0.50) K/uL Baso # (Auto) 0.03 (0.00-0.20) K/uL Immature Gran # (Auto) 0.06 (0.01-0.20) K/uL PT 11.4 (9.0-12.0) Seconds INR 1.1 (0.9-1.1) D-Dimer 59533 H* (0-500) ug/L FEU Sodium 140 (136-145) mmol/L Potassium 3.7 (3.5-5.1) mmol/L Chloride 102 (98-107) mmol/L Carbon Dioxide 25 (21-32) mmol/L Anion Gap 13 H (3-11) BUN 18 (6-23) mg/dl Creatinine 1.01 (0.6-1.2) mg/dl Est Cr Clr Drug Dosing 84.8 ml/min eGFR 66.15 BUN/Creatinine Ratio 17.8 (10-20) Glucose 151 H (70-99(Fasting)) mg/dl Calcium 10.1 (8.6-10.3) mg/dl Magnesium 1.7 (1.7-2.4) mg/dl Total Bilirubin 1.0 (0.2-1.0) mg/dl AST 18 (13-39) U/L ALT 10 (7-52) U/L Alkaline Phosphatase 99 (34-104) U/L Troponin I High Sens 640.9 H* 783.9 H* D (0-14) pg/ml B-Natriuretic Peptide 52 (0-100) pg/ml Total Protein 7.7 (6.0-8.3) gm/dl Albumin 4.5 (3.4-5.0) gm/dl Globulin 3.2 (2.5-4.0) gm/dl Albumin/Globulin Ratio 1.4 (0.9-2) Lipase 16 (11-82) U/L Adenovirus (PCR) Not Detected (NotDetected) B. pertussis DNA (PCR) Not Detected (NotDetected) B.parapertussis DNA PCR Not Detected (NotDetected) C. pneumoniae DNA (PCR) Not Detected (NotDetected) Coronavirus OC43 (PCR) Not Detected (NotDetected) Coronavirus HKU1 (PCR) Not Detected (NotDetected) Coronavirus 229E (PCR) Not Detected (NotDetected) SARS-CoV-2 (PCR) Not Detected (NotDetected) Coronavirus NL63 (PCR) Not Detected (NotDetected) Human Metapneumovir PCR Not Detected (NotDetected) Influenza Type A (PCR) Not Detected (NotDetected) Influenza Type B (PCR) Not Detected (NotDetected) M. pneumoniae (PCR) Not Detected (NotDetected) Parainfluenza 1 (PCR) Not Detected (NotDetected) Parainfluenza 2 (PCR) Not Detected (NotDetected) Parainfluenza 3 (PCR) Not Detected (NotDetected) Parainfluenza 4 (PCR) Not Detected (NotDetected) RSV (PCR) Not Detected (NotDetected) Entero/Rhino (PCR) Not Detected (NotDetected) Administered Medications Heparin Sodium/Dextrose (Heparin Sodium/Dextrose) 25,000 units in 500 mls @ 30 mls/hr IV .[id number] [facility]; Protocol Stop: 04/28/24 18:29 Last Admin: 03/29/24 18:52 Dose: 1,500 units/hr, 30 mls/hr Documented By: RAVI Co-signed By: Discontinued Medications Heparin Sodium (Porcine) (Heparin Sod (Porcine) 1000 Unit/Ml) 1 units IV NOW ONE Stop: 03/29/24 18:19 Last Admin: 03/29/24 18:54 Dose: Not Given Documented By: RAVI Heparin Sodium (Porcine) (Heparin Sod (Porcine) 1000 Unit/Ml) 7,000 units IV NOW ONE Stop: 03/29/24 18:46 Last Admin: 03/29/24 18:51 Dose: 7,000 units Documented By: RAVI Co-signed By: KEIRA Sodium Chloride (Nss) 500 mls @ 999 mls/hr IV .Q31M ONE Stop: 03/29/24 18:33 Last Infusion: 03/29/24 19:36 Dose: Infused Documented By: Admin: 03/29/24 18:51 Dose: 999 mls/hr Documented By: RAVI Acetaminophen (Ofirmev) 1,000 mg in 100 mls @ 400 mls/hr IV NOW STA Stop: 03/29/24 18:18 Last Infusion: 03/29/24 19:36 Dose: Infused Documented By: Admin: 03/29/24 18:51 Dose: 400 mls/hr Documented By: RAVI Ioversol (Optiray 320 125ml) 119 ml IV ONCE ONE Stop: 03/29/24 17:36 Last Admin: 03/29/24 17:41 Dose: 119 ml Documented By: ÁLVARO Imaging Data Radiologist's Impression: Chest X-Ray 03/29/24 16:07 EXAM: Radiograph of the Chest 1 View INDICATION: Chest pain. TECHNIQUE: Frontal view of the chest. COMPARISON: 06/18/2023 FINDINGS: Lungs and pleural spaces: No consolidation or pulmonary edema. No pleural effusion or pneumothorax. Heart: Shape and configuration within normal limits allowing for technique. Mediastinum: Normal contour. Bones/joints: No fracture, erosion or dislocation. Soft tissues: No abnormality noted. No radiopaque foreign body noted. Upper abdomen: No abnormality noted. IMPRESSION: No abnormality noted. ACT 112: Negative or not required by law. Electronically signed by Yu Reynolds 03-29-2024 5:00 PM Chest CTA 03/29/24 17:03 EXAM: CT Angiography Chest With Intravenous Contrast INDICATION: Shortness of breath. Elevated troponin and D-dimer. TECHNIQUE: Axial computed tomographic angiography images of the chest with intravenous contrast. Sagittal and coronal reformatted images were created and reviewed. This CT exam was performed using one or more of the following dose reduction techniques: automated exposure control, adjustment of the mA and/or kV according to patient size, and/or use of iterative reconstruction technique. MIP reconstructed images were created and reviewed. CONTRAST: 119 ml of Optiray 320 was administered intravenously. COMPARISON: 04/10/2022 FINDINGS: Pulmonary arteries: There is large central pulmonary embolic burden with subsegmental propagation to all lobes most prominent involving the lower lobes. No saddle component. Aorta: No acute change noted. No thoracic aortic aneurysm or dissection. Lungs and pleural spaces: Incidental calcified granuloma in the superior segment of the right lower lobe. No mass. No consolidation. No pleural effusion. No pneumothorax. Heart: There is mild dilatation of the right heart. No pericardial effusion. No cardiomegaly. Bones/joints: No acute or atypical chronic changes. Soft tissues: No abnormality noted. Lymph nodes: Calcified right hilar nodes consistent with previous granulomatous infection. No enlarged lymph nodes. IMPRESSION: Moderate to large bilateral pulmonary embolic burden with right heart strain. No saddle component or evidence of pulmonary infarct. ACT 112: Negative or not required by law. Electronically signed by Yu Reynolds 03-29-2024 6:23 PM Discharge Plan Visit Data Chief Complaint: Shortness of Breath/Dyspnea Stated Complaint: SOB, DIZZINESS ED Provider: Sunny Gamble Discharge Problem: Bilateral pulmonary embolism, Elevated troponin, Hypoxia Forms Stand Alone Forms: My [employer] Prescriptions Prescriptions: No Action sertraline 50 mg tablet 75 mg PO QAM Rx Instructions: 1 & 1/2 TABLET DOSE loratadine 10 mg Tablet 10 mg PO QAM rosuvastatin 5 mg tablet 5 mg PO QAM potassium chloride 10 mEq capsule, extended release 10 meq PO QAM epinephrine [Auvi-Q] 0.3 mg/0.3 mL auto-injector 0.3 mg IM UD PRN (Reason: anaphylaxis) Qty: 2 0RF Rx Instructions: Use as prescribed for allergic/anaphylaxis/angioedema. Can use second dose if no improvement in symptoms in 5-15 minutes. multivitamin [Daily-Sabrina] Tablet 1 tab PO DAILY furosemide 40 mg tablet 40 mg PO QAM amlodipine 5 mg tablet 5 mg PO QAM hydrochlorothiazide 12.5 mg capsule 12.5 mg PO QAM cyclobenzaprine 10 mg tablet 10 mg PO BID PRN (Reason: Muscle Spasm) albuterol sulfate 90 mcg/actuation HFA aerosol inhaler 2 puff INHALATION Q6 PRN (Reason: Wheezing) Referrals Referrals: Faizan Chicas MD [Primary Care Provider] -
[2024-03-29] MEDS: OPTIRAY 320 125ml IV ONE (17:41)
[2024-03-29 18:01] LABS: Adenovirus PCR Not Detected (NotDetected); Bordetella parapertussis PCR Not Detected (NotDetected); Bordetella pertussis PCR Not Detected (NotDetected); Chlamydia pneumoniae PCR Not Detected (NotDetected); Coronavirus 229E PCR Not Detected (NotDetected); Coronavirus CoV-2 (COVID19)PCR Not Detected (NotDetected); Coronavirus HKU1 PCR Not Detected (NotDetected); Coronavirus NL63 PCR Not Detected (NotDetected); Coronavirus OC43PCR Not Detected (NotDetected); Human Metapneumovirus PCR Not Detected (NotDetected); Influenza A PCR Not Detected (NotDetected); Influenza B PCR Not Detected (NotDetected); Mycoplasma pneumoniae PCR Not Detected (NotDetected); Parainfluenza Virus 1 PCR Not Detected (NotDetected); Parainfluenza Virus 2 PCR Not Detected (NotDetected); Parainfluenza Virus 3 PCR Not Detected (NotDetected); Parainfluenza Virus 4 PCR Not Detected (NotDetected); Respiratory Syncytial VirusPCR Not Detected (NotDetected); Rhinovirus/Enterovirus PCR Not Detected (NotDetected)
[2024-03-29] MEDS ORDERED: Heparin IV Adult Wt-Based Standard w/ INITIAL Bolus Protocol IV STA (18:03)
[2024-03-29] MEDS ORDERED: Heparin IV Adult Wt-Based Standard w/ INITIAL Bolus Protocol IV SCH (18:15)
--- NOTE | 2024-03-29 18:23 | CT Scan Report ---
EXAM: CT Angiography Chest With Intravenous Contrast INDICATION: Shortness of breath. Elevated troponin and D-dimer. TECHNIQUE: Axial computed tomographic angiography images of the chest with intravenous contrast. Sagittal and coronal reformatted images were created and reviewed. This CT exam was performed using one or more of the following dose reduction techniques: automated exposure control, adjustment of the mA and/or kV according to patient size, and/or use of iterative reconstruction technique. MIP reconstructed images were created and reviewed. CONTRAST: 119 ml of Optiray 320 was administered intravenously. COMPARISON: 04/10/2022 FINDINGS: Pulmonary arteries: There is large central pulmonary embolic burden with subsegmental propagation to all lobes most prominent involving the lower lobes. No saddle component. Aorta: No acute change noted. No thoracic aortic aneurysm or dissection. Lungs and pleural spaces: Incidental calcified granuloma in the superior segment of the right lower lobe. No mass. No consolidation. No pleural effusion. No pneumothorax. Heart: There is mild dilatation of the right heart. No pericardial effusion. No cardiomegaly. Bones/joints: No acute or atypical chronic changes. Soft tissues: No abnormality noted. Lymph nodes: Calcified right hilar nodes consistent with previous granulomatous infection. No enlarged lymph nodes. IMPRESSION: Moderate to large bilateral pulmonary embolic burden with right heart strain. No saddle component or evidence of pulmonary infarct. ACT 112: Negative or not required by law. Electronically signed by Yu Reynolds 03-29-2024 6:23 PM
--- NOTE | 2024-03-29 18:37 | Electrocardiogram Report ---
Test Reason : Blood Pressure : */* mmHG Vent. Rate : 129 BPM Atrial Rate : 129 BPM P-R Int : 146 ms QRS Dur : 82 ms QT Int : 310 ms P-R-T Axes : 53 63 43 degrees QTcB Int : 454 ms Sinus tachycardia Cannot rule out Inferior infarct , age undetermined Abnormal ECG When compared with ECG of 16-Jun-2023 17:27, Minimal criteria for Inferior infarct are now Present T wave amplitude has increased in Lateral leads Confirmed by Yasmani Craft ([id number]) on 03/29/2024 6:37:12 PM Referred By: REFERRED SELF Confirmed By: Yasmani Craft
[2024-03-29] MEDS: HEPARIN SOD (PORCINE) 1000 UNIT/ML IV ONE ×2 (18:51→18:54)
[2024-03-29] MEDS: SODIUM CHLORIDE 0.9% 500 ML IV ONE (18:51)
[2024-03-29] MEDS: ACETAMINOPHEN 1,000 MG/100 ML VIAL IV STA (18:51)
[2024-03-29] MEDS: HEPARIN SODIUM/DEXTROSE 25,000 UNITS/500 ML BAG IV SCH (18:52)
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
[2024-03-30] MEDS ORDERED: NITROGLYCERIN SL 0.4 MG/TAB TAB SL PRN (01:02)
[2024-03-30] MEDS ORDERED: ALBUTEROL HFA 8 GM INHALER INH PRN (01:02)
[2024-03-30] MEDS ORDERED: CYCLOBENZAPRINE HCL 10 MG TAB PO PRN (01:02)
[2024-03-30] MEDS ORDERED: EPINEPHrine INJ 1 MG/ML AMP IM PRN (01:25)
[2024-03-30 02:51] LABS: ANTI-Xa, UFH(UnfractionatedHep 0.73 IU/ml (0.3-0.7)
--- NOTE | 2024-03-30 04:11 | Ultrasound Report ---
EXAM: US venous doppler LE CLINICAL HISTORY: prev 06/23/22. Acute PE. see internal notes for tech comments TECHNIQUE: Ultrasound examination of bilateral lower extremity veins was performed in real-time and duplex. One or more of the following were performed- spectral analysis, resistive index, waveform analysis, and pulsed Doppler. COMPARISON: Previous ultrasound dated 06/23/2022 FINDINGS: Normal phasic, non-pulsatile, and spontaneous flow is noted in bilateral common femoral, superficial femoral, popliteal and posterior tibial and peroneal veins. Visualized veins of both lower extremities demonstrate normal compressibility. No sonographic evidence of acute deep vein thrombosis (DVT) is detected in the visualized veins of both lower extremities. Compression and Augmentation: All evaluated veins compress with applied transducer pressure. Augmentation of venous flow is noted with distal compression. Additional Findings: No evidence of intraluminal thrombus. IMPRESSION: 1. No Definite sonographic evidence of acute DVT was detected in bilateral common femoral, superficial femoral, popliteal, posterior tibial, peroneal veins, and proximal anterior tibial veins at the time of examination, According to tech notes. 2. No interval change. Disclaimer: DVT could be missed early in the disease when clot burden is minimal. For patients with moderate and high pretest probability of DVT and negative ultrasound, the [employer] clinical guidelines recommend testing with a D-dimer assay or repeat ultrasound in 5-7 days. If symptoms worsen, the Society of radiologists in ultrasound recommends repeating ultrasound even earlier. Electronically signed by Connor Asif 03-30-2024 04:11 AM
[2024-03-30 05:48] LABS: Basophils # (auto) 0.04 K/uL (0.00-0.20); Basophils % (auto) 0.3 %; Eosinophils # (auto) 0.08 K/uL (0.00-0.50); Eosinophils % (auto) 0.7 %; Hematocrit (blood only) 37.7 % (37.0-47.0); Hemoglobin 12.5 g/dl (12.0-16.0); Immature Granulocytes # (auto) 0.04 K/uL (0.01-0.20); Immature Granulocytes % (auto) 0.3 %; Lymphocytes # (auto) 2.91 K/uL (1.20-3.40); Lymphocytes % (auto) 24.3 %; Mean Corpuscular Hgb Conc 33.2 g/dL (32.0-36.0); Mean Corpuscular Volume 90.4 fL (80.0-100.0); Mean Platelet Volume 9.5 fL (9.4-12.4); Monocytes # (auto) 1.17 K/uL (0.11-0.59); Monocytes % (auto) 9.8 %; Neutrophils # (auto) 7.74 K/uL (1.40-6.50); Neutrophils % (auto) 64.6 %; Platelet Count 257 K/uL (130-400); RDW Standard Deviation 42.6 fL (36.4-46.3); Red Blood Count 4.17 M/uL (4.20-5.40); White Blood Count 11.98 K/ul (4.8-10.8)
[2024-03-30 06:02] LABS: BUN Creatinine Ratio 22.4 (10-20); Calcium 9.1 mg/dl (8.6-10.3); Creatinine Clr Calc Pharmacy 112.2 ml/min; Magnesium 1.8 mg/dl (1.7-2.4); Potassium 3.4 mmol/L (3.5-5.1)
[2024-03-30 06:17] LABS: Troponin I High Sensitivity 640.3 pg/ml (0-14)
[2024-03-30 07:09] LABS: Estimated Average Glucose 105 mg/dl; Hemoglobin A1C 5.3 % (4.5-5.6)
[2024-03-30] MEDS: hydroCHLOROthiazide 25 MG TAB PO SCH (08:22)
[2024-03-30] MEDS: SERTRALINE HCL 50 MG TABLET PO SCH (08:23)
[2024-03-30] MEDS: MULTIVITAMIN TAB PO SCH (08:23)
[2024-03-30] MEDS: LORATADINE 10 MG TAB PO SCH (08:23)
[2024-03-30] MEDS: amLODIPine BESYLATE 5 MG TAB PO SCH (08:23)
[2024-03-30] MEDS: FUROSEMIDE 40 MG TAB PO SCH (08:23)
[2024-03-30] MEDS: ROSUVASTATIN CALCIUM 5 MG TAB PO SCH (08:23)
[2024-03-30] MEDS: ACETAMINOPHEN 325 MG TAB PO PRN (08:25)
[2024-03-30] MEDS: POTASSIUM CHLORIDE 10 MEQ TABCR PO SCH (08:25)
--- NOTE | 2024-03-30 09:07 | Pulmonary Consultation ---
Date of Consultation March 30, 2024 Assessment & Plan (1) Bilateral pulmonary embolism: (2) Morbid obesity with BMI of 50.0-59.9, adult: Plan Impression: 53-year-old morbidly obese female with extensive family history of thromboembolic disease presents now with acute PE. She is hemodynamically stable and improving on heparin. Recommendations: 1. Idiopathic PE: The patient has moderate risk factors for clinical deterioration but appears to be improving. At this point time would continue heparin for an additional 24 hours at which point in time if her tachycardia resolves she can be transition to oral anticoagulation. Given the idiopathic nature of her clot, would recommend lifelong anticoagulation. Do not think evaluation for acquired or inherited thrombophilia would change person at this point in time but if desired, outpatient consultation with hematology could be obtained. 2. Hypoxemia: Continue to wean oxygen as tolerated. Keep oxygen saturations at or above 90%. Patient may require assessment for supplemental oxygen prior to discharge. 3. Outpatient evaluation for sleep disordered breathing may be warranted. Patient appears to be responding appropriately to therapy. Management as noted above. Feel free to contact us with questions or concerns History of Present Illness Attending Physician: Anthony Strauss MD History of Present Illness Asked by hospitalist to assist in evaluation management this patient admitted with pulmonary embolism. History is obtained from discussion with patient as well as review of electronic medical record. Patient is a 53-year-old morbidly obese female who has an extensive family history of clotting disorders. She states that both of her parents as well as multiple first-degree relatives have had DVTs and PEs. She herself has never had a prior thromboembolic event. She states that she became short of breath yesterday. She presented to the emergency room. She had a CT scan performed which revealed fairly extensive thromboembolic disease. She had some RV strain as elevated biomarkers were noted but was relatively hemodynamically stable with the exception of mild tachycardia. She had not had any syncope or presyncope. Her oxygen requirement was minimal. There was initial concern that the patient would require thrombectomy however tertiary referral centers were contacted and the patient's clots were felt to be too distal to require mechanical retrieval. In addition she was hemodynamically stable. She did not meet criteria for thrombolysis and was initiated on heparin and admitted to the floor. The patient reports that she feels much better this morning. She is coughing occasionally but not experiencing any hemoptysis. She denies any syncope or pr esyncope. No chest pain. She does have chronic lower extremity edema. The patient reports that she has had a colonoscopy. Her mammogram is not up-to-date. She does not report any history of trauma immobilization or prolonged travel. Allergies Allergy/AdvReac Type Severity Reaction Status Date / Time lisinopril Allergy Severe angioedema Verified 03/29/24 21:31 fluticasone [From Flonase] Allergy Mild burning in Verified 03/29/24 21:31 nose sulfamethoxazole Allergy Mild itchy Verified 03/29/24 21:31 [From Bactrim] trimethoprim [From Bactrim] Allergy Mild itchy Verified 03/29/24 21:31 latex Allergy Blister Verified 03/30/24 01:25 ciprofloxacin [Cipro] AdvReac Severe DIZZY Verified 03/29/24 21:31 Home Medications Medication Instructions Recorded Confirmed Type loratadine 10 mg tablet 10 mg PO QAM Allergy Symptoms 04/17/20 03/29/24 History rosuvastatin 5 mg tablet 5 mg PO QAM 04/17/20 03/29/24 History sertraline 50 mg tablet 75 mg PO QAM 04/17/20 03/29/24 History potassium chloride 10 mEq 10 meq PO QAM 07/25/22 03/29/24 History capsule,extended release epinephrine 0.3 mg/0.3 mL 0.3 mg (0.3 mL) IM UD PRN 07/27/22 03/29/24 Rx injection, auto-injector (Auvi-Q) anaphylaxis #2 ea albuterol sulfate 90 mcg/actuation 2 puff inhalation Q6 PRN Wheezing 03/29/24 03/29/24 History aerosol inhaler amlodipine 5 mg tablet 5 mg PO QAM 03/29/24 03/29/24 History cyclobenzaprine 10 mg tablet 10 mg PO BID PRN Muscle Spasm 03/29/24 03/29/24 History furosemide 40 mg tablet 40 mg PO QAM 03/29/24 03/29/24 History hydrochlorothiazide 12.5 mg capsule 12.5 mg PO QAM 03/29/24 03/29/24 History multivitamin (Daily-Sabrina tablet) 1 tab PO DAILY 03/29/24 03/29/24 History Patient History Medical History Weakness Breast discharge RT SIDE (REASON FOR PROCEDURE) Hx: UTI (urinary tract infection) RECENT DX Leg swelling REASON FOR LASIX (CURRENTLY HAS LEG SWELLING) History of COVID-19 04/2020 Surgical History Hx of lumpectomy benign History of tooth extraction History of colonoscopy History of surgery on extremity left leg cut artery Family History Mother Stomach cancer Father Colorectal cancer Other No family history of adverse response to anesthesia Social History Smoking Status: Former smoker Tobacco Type: Cigarettes Smoking End Date: 25 years ago; Second Hand Exposure: Yes; Do You Dip or Chew Tobacco: No; Hx Alcohol Use: No Hx Substance Use: No Preferred Language: Azerbaijani 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 No additions or deletions Physical Exam Constitutional: WD/WN, vitals as above Neck: trachea midline, no thyromegaly Respiratory: normal respiratory effort, lungs clear to auscultation Cardiovascular: RRR, no murmur, no edema Gastrointestinal (Abdomen): normal bowel sounds, soft, nontender, no hepatosplenomegaly Musculoskeletal: Extremities: extremities normal to inspection Skin: no rashes, warm and dry Neurologic: Nonfocal exam Lymphatic: no cervical lymphadenopathy Results & Data Results & Data Vital Signs (Past 12 Hours) Vital Signs Temp Pulse Pulse Resp BP BP Pulse Ox 03/30/24 08:28 03/30/24 07:48 36.9 C 104 H 18 132/84 96 03/30/24 04:34 36.8 C 99 H 16 144/91 H 98 03/30/24 01:38 03/30/24 01:38 36.8 C 104 H 18 128/89 98 03/30/24 01:31 103 H 03/30/24 00:37 97 H 14 127/101 H 99 03/29/24 23:13 101 H 18 107/79 98 03/29/24 22:00 108 H 24 115/77 97 03/29/24 21:30 106 H 19 114/80 98 O2 Del Method O2 Flow Rate 03/30/24 08:28 Nasal Cannula 3 03/30/24 07:48 Nasal Cannula 2.0 03/30/24 04:34 Nasal Cannula 2 03/30/24 01:38 Nasal Cannula 2 03/30/24 01:38 Nasal Cannula 2 03/30/24 01:31 03/30/24 00:37 Room Air 03/29/24 23:13 Nasal Cannula 2.5 03/29/24 22:00 03/29/24 21:30 Critical Care Results & Data Vital Signs (Past 12 Hours) Vital Signs Temp Pulse Pulse Resp BP BP Pulse Ox 03/30/24 08:28 03/30/24 07:48 36.9 C 104 H 18 132/84 96 03/30/24 04:34 36.8 C 99 H 16 144/91 H 98 03/30/24 01:38 03/30/24 01:38 36.8 C 104 H 18 128/89 98 03/30/24 01:31 103 H 03/30/24 00:37 97 H 14 127/101 H 99 03/29/24 23:13 101 H 18 107/79 98 03/29/24 22:00 108 H 24 115/77 97 03/29/24 21:30 106 H 19 114/80 98 O2 Del Method O2 Flow Rate 03/30/24 08:28 Nasal Cannula 3 03/30/24 07:48 Nasal Cannula 2.0 03/30/24 04:34 Nasal Cannula 2 03/30/24 01:38 Nasal Cannula 2 03/30/24 01:38 Nasal Cannula 2 03/30/24 01:31 03/30/24 00:37 Room Air 03/29/24 23:13 Nasal Cannula 2.5 03/29/24 22:00 03/29/24 21:30 Lab & Micro Results (Past 24 Hours) RBC 4.17 M/uL (4.20-5.40) L 03/30/24 WBC 11.98 K/ul (4.8-10.8) H 03/30/24 Hgb 12.5 g/dl (12.0-16.0) 03/30/24 Hct 37.7 % (37.0-47.0) 03/30/24 MCV 90.4 fL (80.0-100.0) 03/30/24 MCH 30.0 pg (25.0-34.0) 03/30/24 MCHC 33.2 g/dL (32.0-36.0) 03/30/24 RDW Standard Deviation 42.6 fL (36.4-46.3) 03/30/24 RDW Coefficient of Variation 13.0 % (11.5-14.5) 03/30/24 Plt Count 257 K/uL (130-400) 03/30/24 MPV 9.5 fL (9.4-12.4) 03/30/24 Neutrophils (%) (Auto) 64.6 % 03/30/24 Lymphocytes (%) (Auto) 24.3 % 03/30/24 Monocytes # (Auto) 1.17 K/uL (0.11-0.59) H 03/30/24 Eosinophils # (Auto) 0.08 K/uL (0.00-0.50) 03/30/24 Immature Granulocyte % (Auto) 0.3 % 03/30/24 Neutrophils # (Auto) 7.74 K/uL (1.40-6.50) H 03/30/24 Lymphocytes # (Auto) 2.91 K/uL (1.20-3.40) 03/30/24 Monocytes # (Auto) 1.17 K/uL (0.11-0.59) H 03/30/24 Eosinophils # (Auto) 0.08 K/uL (0.00-0.50) 03/30/24 Basophils # (Auto) 0.04 K/uL (0.00-0.20) 03/30/24 Immature Granulocyte # (Auto) 0.04 K/uL (0.01-0.20) 4 Na 142 mmol/L (136-145) 03/30/24 K 3.4 mmol/L (3.5-5.1) L 03/30/24 Cl 108 mmol/L (98-107) H 03/30/24 CO2 25 mmol/L (21-32) 03/30/24 Anion Gap 9 (3-11) 03/30/24 BUN 17 mg/dl (6-23) 03/30/24 Creatinine 0.76 mg/dl (0.6-1.2) 03/30/24 BUN/Creatinine Ratio 22.4 (10-20) H 03/30/24 Glu 104 mg/dl (70-99(Fasting)) H 03/30/24 Ca 9.1 mg/dl (8.6-10.3) 03/30/24 Total Bilirubin 1.0 mg/dl (0.2-1.0) 03/29/24 AST 18 U/L (13-39) 03/29/24 ALT 10 U/L (7-52) 03/29/24 Alkaline Phosphatase 99 U/L (34-104) 03/29/24 TP 7.7 gm/dl (6.0-8.3) 03/29/24 Albumin 4.5 gm/dl (3.4-5.0) 03/29/24 Globulin 3.2 gm/dl (2.5-4.0) 03/29/24 Albumin/Globulin Ratio 1.4 (0.9-2) 03/29/24 Mg 1.8 mg/dl (1.7-2.4) 03/30/24 05:23 Calcium Level 9.1 mg/dl (8.6-10.3) 03/30/24 05:23 Prothromb Time International Ratio 1.1 (0.9-1.1) 03/29/24 16:0 0 Diagnostic Findings (Past 24 Hours) Chest X-Ray 03/29/24 16:07 EXAM: Radiograph of the Chest 1 View INDICATION: Chest pain. TECHNIQUE: Frontal view of the chest. COMPARISON: 06/18/2023 FINDINGS: Lungs and pleural spaces: No consolidation or pulmonary edema. No pleural effusion or pneumothorax. Heart: Shape and configuration within normal limits allowing for technique. Mediastinum: Normal contour. Bones/joints: No fracture, erosion or dislocation. Soft tissues: No abnormality noted. No radiopaque foreign body noted. Upper abdomen: No abnormality noted. IMPRESSION: No abnormality noted. ACT 112: Negative or not required by law. Electronically signed by Yu Reynolds 03-29-2024 5:00 PM Chest CTA 03/29/24 17:03 EXAM: CT Angiography Chest With Intravenous Contrast INDICATION: Shortness of breath. Elevated troponin and D-dimer. TECHNIQUE: Axial computed tomographic angiography images of the chest with intravenous contrast. Sagittal and coronal reformatted images were created and reviewed. This CT exam was performed using one or more of the following dose reduction techniques: automated exposure control, adjustment of the mA and/or kV according to patient size, and/or use of iterative reconstruction technique. MIP reconstructed images were created and reviewed. CONTRAST: 119 ml of Optiray 320 was administered intravenously. COMPARISON: 04/10/2022 FINDINGS: Pulmonary arteries: There is large central pulmonary embolic burden with subsegmental propagation to all lobes most prominent involving the lower lobes. No saddle component. Aorta: No acute change noted. No thoracic aortic aneurysm or dissection. Lungs and pleural spaces: Incidental calcified granuloma in the superior segment of the right lower lobe. No mass. No consolidation. No pleural effusion. No pneumothorax. Heart: There is mild dilatation of the right heart. No pericardial effusion. No cardiomegaly. Bones/joints: No acute or atypical chronic changes. Soft tissues: No abnormality noted. Lymph nodes: Calcified right hilar nodes consistent with previous granulomatous infection. No enlarged lymph nodes. IMPRESSION: Moderate to large bilateral pulmonary embolic burden with right heart strain. No saddle component or evidence of pulmonary infarct. ACT 112: Negative or not required by law. Electronically signed by Yu Reynolds 03-29-2024 6:23 PM Venous Doppler Study 03/30/24 01:02 EXAM: US venous doppler LE CLINICAL HISTORY: prev 06/23/22. Acute PE. see internal notes for tech comments TECHNIQUE: Ultrasound examination of bilateral lower extremity veins was performed in real-time and duplex. One or more of the following were performed- spectral analysis, resistive index, waveform analysis, and pulsed Doppler. COMPARISON: Previous ultrasound dated 06/23/2022 FINDINGS: Normal phasic, non-pulsatile, and spontaneous flow is noted in bilateral common femoral, superficial femoral, popliteal and posterior tibial and peroneal veins. Visualized veins of both lower extremities demonstrate normal compressibility. No sonographic evidence of acute deep vein thrombosis (DVT) is detected in the visualized veins of both lower extremities. Compression and Augmentation: All evaluated veins compress with applied transducer pressure. Augmentation of venous flow is noted with distal compression. Additional Findings: No evidence of intraluminal thrombus. IMPRESSION: 1. No Definite sonographic evidence of acute DVT was detected in bilateral common femoral, superficial femoral, popliteal, posterior tibial, peroneal veins, and proximal anterior tibial veins at the time of examination, According to tech notes. 2. No interval change. Disclaimer: DVT could be missed early in the disease when clot burden is minimal. For patients with moderate and high pretest probability of DVT and negative ultrasound, the [employer] clinical guidelines recommend testing with a D-dimer assay or repeat ultrasound in 5-7 days. If symptoms worsen, the Society of radiologists in ultrasound recommends repeating ultrasound even earlier. Electronically signed by Connor Asif 03-30-2024 04:11 AM I & O Totals 24 Hours 03/29/24 03/30/24 03/31/24 06:59 06:59 06:59 Intake Total 954.9 / 954.9 Output Total 600 / 600 Balance 354.9 / 354.9 Cumulative 03/29/24 15:41 thru 03/30/24 06:58 Intake Total 954.9 Output Total 600 Balance 354.9 RT Ventilator Mngmt (Last Documented) Ventilator Ordered Settings Respiratory Rate 18 03/30/24 07:48 Ventilator - PT Measurements Respiratory Rate 18 PG Care Time/CCT Total # of Minutes Spent Total Time Spent with Patient: Total time spent is greater than 50% in coordination of care (as documented) at patient's floor/unit and/or counseling patient: Coding Level of Care Code 70229 IN/OBS CONSULT LVL 4,60M Diagnoses Bilateral pulmonary embolism I26.99 Morbid obesity with BMI of 50.0-59.9, adult E66.01; Z68.43
[2024-03-30 09:39] LABS: ANTI-Xa, UFH(UnfractionatedHep 0.49 IU/ml (0.3-0.7)
--- NOTE | 2024-03-30 09:47 | Cardiology Consultation ---
Date of Consultation March 30, 2024 Assessment & Plan (1) Bilateral pulmonary embolism: (2) Elevated troponin: Plan Case has been discussed with Dr. Alonzo. Further recommendations regarding plan of care as per his assessment. I spent a total of 40 minutes on the date of service in preparation, delivery, documentation of the care provided to the patient excluding any time spent in the performance of separately billed services. ABILIO Larson [facility] Cardiology [facility] Supervising Physician Co-Signing Physician Notes Attending Staff: Patient was seen and evaluated with AP Staff Concur with observations and plans 53 yo woman presenting with chest pain and dyspnea x 1 day D-Dimer - markedly elevated CT PE - moderate to large bilateral pulmonary emboli with right heart strain No LE DVT Troponin - 783 Heparin IV ED staff reviewed findings with [facility] - given more distal location of thrombus - medical management preferred ED staff reviewed with pulmonary - no immediate plans for thrombolytics ECHOcardiogram - 03-31-2024 LVEF 60-65% No WMA Mild LVH No significant valvular disease RV- mildly dilated Trace TR Hx: Hyperlipidemia HTN Venous Insufficiency Obesity GERD Plans: * Reviewed challenge -significant bilateral PE * On systemic anticoagulation with Heparin * May consider transition to DOAC at primary team's discretion * Thrombophilia workup may prove helpful; she described several relatives with DVT hx * Marginal SBP - would hold Amlodipine * Patient on Lasix - would hold HCTZ * May be able to resume Antihypertensives once BP is stabilized * Follow up with [facility] Cardiology * 61 min spent addressing challenges, educating and advancing daily plan of care Yahir Alonzo History of Present Illness Reason for Consultation: Acute PE with Right heart strain Requesting Physician: [facility] hospitalist Attending Physician: Anthony Strauss MD History of Present Illness HPI: 53 year old female with PMHx significant for HLD, venous insufficiency, HTN, morbid obesity, GERD, urge incontinence, OA and Depression that presented with complaints of severe chest pain, and shortness of breath. Imaging demonstrates an extensive PE. She was tachycardic, and sats were 88% on room air. Heparin gtt started and patient reported improvement in her CP. DDS: [id number] CT scan showing moderate to large bilateral pulmonary emboli with right heart strain. No saddle component or evidence of pulmonary infarct. Venous Doppler: IMPRESSION: 1. No Definite sonographic evidence of acute DVT was detected in bilateral common femoral, superficial femoral, popliteal, posterior tibial, peroneal veins, and proximal anterior tibial veins at the time of examination, According to tech notes. 2. No interval change. HST 614/ 783/ 640.3 Per review of noted it appears that the ER talked with [facility] IR and because of distal location within the main pulm artery of the patient's PE IR thought patient patient would not be a candidate for thrombectomy at this time. ER also discussed with the pulmonary and no indication for tPA at this time. labs/diagnostics/documentation/vitals and telemetry reviewed. Allergies Allergy/AdvReac Type Severity Reaction Status Date / Time lisinopril Allergy Severe angioedema Verified 03/29/24 21:31 fluticasone [From Flonase] Allergy Mild burning in Verified 03/29/24 21:31 nose sulfamethoxazole Allergy Mild itchy Verified 03/29/24 21:31 [From Bactrim] trimethoprim [From Bactrim] Allergy Mild itchy Verified 03/29/24 21:31 latex Allergy Blister Verified 03/30/24 01:25 ciprofloxacin [Cipro] AdvReac Severe DIZZY Verified 03/29/24 21:31 Home Medications Medication Instructions Recorded Confirmed Type loratadine 10 mg tablet 10 mg PO QAM Allergy Symptoms 04/17/20 03/29/24 History rosuvastatin 5 mg tablet 5 mg PO QAM 04/17/20 03/29/24 History sertraline 50 mg tablet 75 mg PO QAM 04/17/20 03/29/24 History potassium chloride 10 mEq 10 meq PO QAM 07/25/22 03/29/24 History capsule,extended release epinephrine 0.3 mg/0.3 mL 0.3 mg (0.3 mL) IM UD PRN 07/27/22 03/29/24 Rx injection, auto-injector (Auvi-Q) anaphylaxis #2 ea albuterol sulfate 90 mcg/actuation 2 puff inhalation Q6 PRN Wheezing 03/29/24 03/29/24 History aerosol inhaler amlodipine 5 mg tablet 5 mg PO QAM 03/29/24 03/29/24 History cyclobenzaprine 10 mg tablet 10 mg PO BID PRN Muscle Spasm 03/29/24 03/29/24 History furosemide 40 mg tablet 40 mg PO QAM 03/29/24 03/29/24 History hydrochlorothiazide 12.5 mg capsule 12.5 mg PO QAM 03/29/24 03/29/24 History multivitamin (Daily-Sabrina tablet) 1 tab PO DAILY 03/29/24 03/29/24 History Patient History Medical History Weakness Breast discharge RT SIDE (REASON FOR PROCEDURE) Hx: UTI (urinary tract infection) RECENT DX Leg swelling REASON FOR LASIX (CURRENTLY HAS LEG SWELLING) History of COVID-19 04/2020 Surgical History Hx of lumpectomy benign History of tooth extraction History of colonoscopy History of surgery on extremity left leg cut artery Family History Mother Stomach cancer Father Colorectal cancer Other No family history of adverse response to anesthesia Social History Smoking Status: Former smoker Tobacco Type: Cigarettes Smoking End Date: 25 years ago; Second Hand Exposure: Yes; Do You Dip or Chew Tobacco: No; Hx Alcohol Use: No Hx Substance Use: No Preferred Language: Latvian Communication Ability: Effective Curve Saw Operator Required: No Beliefs That Will Affect Care: None Current Living Situation: Alone Current Living Situation Comment: lives in an apartment Other Information That Helps Us Care for You: No Feels Safe at Home: Yes Safety Concerns: Feels Safe At This Time Assistive Devices: Cane and Walker Review of Systems Review of Systems: All systems reviewed & are unremarkable except as noted in HPI & below Physical Exam Physical Exam: Obese JVP 14 cmH20 S1S2 CTA B No C/C/E Warm and Perfused Results & Data Vital Signs (Past 12 Hours) Vital Signs Temp Pulse Pulse Resp BP BP Pulse Ox 03/30/24 08:28 03/30/24 07:48 36.9 C 104 H 18 132/84 96 03/30/24 04:34 36.8 C 99 H 16 144/91 H 98 03/30/24 01:38 03/30/24 01:38 36.8 C 104 H 18 128/89 98 03/30/24 01:31 103 H 03/30/24 00:37 97 H 14 127/101 H 99 03/29/24 23:13 101 H 18 107/79 98 03/29/24 22:00 108 H 24 115/77 97 O2 Del Method O2 Flow Rate 03/30/24 08:28 Nasal Cannula 3 03/30/24 07:48 Nasal Cannula 2.0 03/30/24 04:34 Nasal Cannula 2 03/30/24 01:38 Nasal Cannula 2 03/30/24 01:38 Nasal Cannula 2 03/30/24 01:31 03/30/24 00:37 Room Air 03/29/24 23:13 Nasal Cannula 2.5 03/29/24 22:00 Laboratory Results Cardiac Enzymes 03/29/24 03/29/24 03/30/24 Range/Units 16:00 17:51 05:23 AST 18 (13-39) U/L Troponin I High Sens 640.9 H* 783.9 H* D 640.3 H* (0-14) pg/ml B-Natriuretic Peptide 52 (0-100) pg/ml Coagulation 03/29/24 Range/Units 16:00 PT 11.4 (9.0-12.0) Seconds B-Natriuretic Peptide 52 (0-100) pg/ml CBC 03/29/24 03/30/24 Range/Units 16:00 05:23 WBC 14.71 H 11.98 H (4.8-10.8) K/ul RBC 4.70 4.17 L (4.20-5.40) M/uL Hgb 14.0 12.5 (12.0-16.0) g/dl Hct 42.7 37.7 (37.0-47.0) % Plt Count 281 257 (130-400) K/uL Neut # (Auto) 12.87 H 7.74 H (1.40-6.50) K/uL Lymph # (Auto) 0.82 L 2.91 (1.20-3.40) K/uL Ellis # (Auto) 0.93 H 1.17 H (0.11-0.59) K/uL Eos # (Auto) 0.00 0.08 (0.00-0.50) K/uL Baso # (Auto) 0.03 0.04 (0.00-0.20) K/uL Comprehensive Metabolic Panel 03/29/24 03/30/24 Range/Units 16:00 05:23 Sodium 140 142 (136-145) mmol/L Potassium 3.7 3.4 L (3.5-5.1) mmol/L Chloride 102 108 H (98-107) mmol/L Carbon Dioxide 25 25 (21-32) mmol/L BUN 18 17 (6-23) mg/dl Creatinine 1.01 0.76 (0.6-1.2) mg/dl Glucose 151 H 104 H (70-99(Fasting)) mg/dl Calcium 10.1 9.1 (8.6-10.3) mg/dl AST 18 (13-39) U/L ALT 10 (7-52) U/L Alkaline Phosphatase 99 (34-104) U/L Total Protein 7.7 (6.0-8.3) gm/dl Albumin 4.5 (3.4-5.0) gm/dl Intake and Output 03/29/24 03/30/24 03/30/24 22:59 06:59 14:59 Intake Total 600 / 954.9 354.9 / 954.9 Output Total 600 / 600 Balance 600 / 354.9 -245.1 / 354.9 Intake: IV 600 / 954.9 354.9 / 954.9 Acetaminophen 1,000 mg In 100 100 / 100 ml @ 400 mls/hr IV NOW STA Rx#: [id number] Heparin Sodium/Dextrose 25,000 354.9 / 354.9 units In 500 ml @ 1,400 UNITS/ HR 28 mls/hr IV .[id number] [facility] Rx #:[id number] Sodium Chloride 0.9% 500 ml @ 500 / 500 999 mls/hr IV .Q31M ONE Rx#: [id number] Output: Urine Amount (Catheter) 600 / 600 External 600 / 600 Other: Other Intake Source Sips and chips # Unmeasured Voids 1 Weight 128.9 kg 127.913 kg Weight Measurement Method Built [facility] Medications Administered Current Inpatient Medications Acetaminophen (Acetaminophen 325 Mg Tab) 650 mg PO Q4H PRN PRN Reason: Pain or Fever Stop: 04/29/24 01:01 Last Admin: 03/30/24 08:25 Dose: 650 mg Albuterol (Albuterol Hfa 8 Gm Inhaler) 2 puffs INH Q6 PRN PRN Reason: Wheezing Stop: 04/29/24 01:01 Amlodipine Besylate ([facility]ip[facility] Besylate 5 Mg Tab) [facility] [place]: 04/29/24 08:59 Last Admin: 03/30/24 08:23 Dose: 5 mg Cyclobenzaprine HCl (Cyclobenzaprine Hcl 10 Mg Tab) 10 mg PO BID PRN PRN Reason: Muscle Spasm Stop: 04/29/24 01:01 Epinephrine HCl (Epinephrine Inj 1 Mg/Ml Amp) 0.3 mg IM UD PRN PRN Reason: anaphylaxis Furosemide (Furosemide 40 Mg Tab) [facility] Stop: 04/29/24 08:59 Last Admin: 03/30/24 08:23 Dose: 40 mg Hydrochlorothiazide (Hydrochlorothiazide 25 Mg Tab) 12.5 [facility] Stop: 04/29/24 08:59 Last Admin: 03/30/24 08:22 Dose: 12.5 mg Heparin Sodium/Dextrose (Heparin Sodium/Dextrose) 25,000 units in 500 mls @ 28 mls/hr IV .[id number] [facility]; Protocol Stop: 04/28/24 18:29 Last Titration: 03/30/24 06:58 Dose: 1,400 units/hr, 28 mls/hr Loratadine (Loratadine 10 Mg Tab) 10 mg PO [facility] Stop: 04/29/24 08:59 Last Admin: 03/30/24 08:23 Dose: 10 mg Multivitamins (Multivitamin Tab) 1 tab PO DAILY [facility] Stop: 04/29/24 08:59 Last Admin: 03/30/24 08:23 Dose: 1 tab Nitroglycerin (Nitroglycerin Sl 0.4 Mg/Tab Tab) 0.4 mg SL Q5M PRN PRN Reason: Chest Pain Stop: 04/29/24 01:01 Polyethylene Glycol (Polyethylene (Miralax) 17 Gm Pack) 17 gm PO DAILY PRN PRN Reason: Constipation Stop: 04/29/24 01:01 Potassium Chloride (Potassium Chloride 10 Meq Tabcr) 10 meq PO [facility] Stop: 04/29/24 08:59 Last Admin: 03/30/24 08:25 Dose: 10 meq Rosuvastatin Calcium (Rosuvastatin Calcium 5 Mg Tab) 5 mg PO [facility] Stop: 04/29/24 08:59 Last Admin: 03/30/24 08:23 Dose: 5 mg Sertraline HCl (Sertraline Hcl 50 Mg Tablet) 75 mg PO MELVINM [facility] Stop: 04/29/24 08:59 Last Admin: 03/30/24 08:23 Dose: 75 mg
[2024-03-30] MEDS: POTASSIUM CHLORIDE CRTAB 20 MEQ TABCR PO STA (10:44)
--- OUTSIDE RECORDS SUMMARY | 2024-03-30 14:52 | External Medical Summary | Summary of Care ---
Author Name Unknown Organization [facility] Address [address] [place] [address] Phone [phone] Care Team Providers Care Hr Administrator Name Role Phone Michelle De Luna MD Primary Care Provider [phone] Encounter Details Date Type Department Care Team (Late st Contact Info) Description 03/03/2024 Orders Only PATIENT PORTAL DO NOT DELETE THIS DEPT USED BY [place] DIAZ [id number] Allergies Active Allergy Reactions Criticality Noted Date Comments Sulfamethoxazole-Trimeth oprim Itching,Rash 06/07/2016 Mild rash and itching, not hives. Ciprofloxacin Other (Please comment) Medium 02/29/2016 Lightheaded and dizzy Fluticasone Propionate 04/07/2016 burning Lisinopril Other (Please comment) 07/31/2022 Angioneurotic reaction documented as of this encounter (statuses as of 03/03/2024) Medications Medication Sig Dispensed Refills Start Date End Date Status Famotidine 40 MG Oral Tablet (Pepcid)Indications :Gastroesophageal reflux disease without esophagitis Take 0.5 Tablets by mouth at bedtime. 45 Tablet 3 05/25/2023 Active Furosemide 40 MG Oral Tablet (Lasix)Indications: Obesity, morbid (more than 100 lbs over ideal weight or BMI > 40) (HCC),Venous insufficiency,Edema , unspecified type Take 1 Tablet by mouth in the morning. 90 Tablet 3 05/25/2023 Active Multivitamin Adult Oral TabletIndications:P rophylactic measure To take one tablet by mouth daily. 90 Tablet 3 05/25/2023 Active EPINEPHrine 0.3 MG/0.3ML Injection Solution Auto-injector (Autoinjector)Indic ations:Angioedema, subsequent encounter For a severe reaction: Inject 0.3 mg in outer thigh following instructions on package and go to the Emergency room. 2 Each 06/23/2023 Active Albuterol Sulfate HFA 108 (90 Base) MCG/ACT Inhalation Aerosol SolutionIndications :COVID-19 virus infection INHALE 2 PUFFS BY MOUTH EVERY 6 HOURS NEEDED FOR WHEEZING OR COUGH. 18 g 5 08/20/2023 Active hydroCHLOROthiazide 12.5 MG Oral Capsule Take 1 Capsule by mouth in the morning. 90 Capsule 3 08/28/2023 Active methylPREDNISolone 4 MG Oral Tablet Therapy Pack (Medrol Dosepack) follow package directions 21 Tablet 08/28/2023 Active Additional Information Patient not taking.Reported on 02/29/2024 amLODIPine Besylate 5 MG Oral Tablet (Norvasc)Indication s:HTN, goal below 130/80 Take 1 Tablet by mouth in the morning. 90 Tablet 3 09/14/2023 Active Sertraline HCl 50 MG Oral Tablet (Zoloft)Indications :Depression with anxiety TAKE 1.5 TABLETS BY MOUTH IN THE MORNING 135 Tablet 3 12/23/2023 Active Potassium Chloride ER 10 MEQ Oral Tablet Extended ReleaseIndications: Venous insufficiency,Edema , unspecified type TAKE 1 TABLET BY MOUTH EVERY DAY IN THE MORNING 90 Tablet 3 12/23/2023 Active Loratadine 10 MG Oral Tablet (Claritin)Indicatio ns:Allergic rhinitis, unspecified seasonality, unspecified trigger TAKE 1 TABLET BY MOUTH EVERY DAY IN THE MORNING 90 Tablet 3 12/23/2023 Active Rosuvastatin Calcium 5 MG Oral Tablet (Crestor)Indication s:Mixed dyslipidemia TAKE 1 TABLET BY MOUTH EVERY DAY IN THE MORNING 90 Tablet 3 12/23/2023 Active Cyclobenzaprine HCl 10 MG Oral Tablet (Flexeril)Indicatio ns:Left-sided low back pain with left-sided sciatica, unspecified chronicity TAKE ONE TABLET BY MOUTH TWO TIMES A DAY NEEDED FOR MUSCLE SPASMS 60 Tablet 1 02/22/2024 Active Probiotic (Lactobacillus) Oral CapsuleIndications: Diarrhea, unspecified type Take 1 Capsule by mouth in the morning and 1 Capsule before bedtime. 60 Capsule 5 02/29/2024 Active documented as of this encounter (statuses as of 03/03/2024) Active Problems Problem Noted Date Diagnosed Date Hyperlipidemia 08/25/2022 Last Assessment & Plan: Continue crestor Urgency incontinence 03/10/2022 Obesity, morbid (more than 1 00 lbs over ideal weight or BMI > 40) 07/19/2021 HTN, goal below 130/80 10/03/2020 Last Assessment & Plan: BP slightly high off chastity. Will likely improve once patient starts Lasix, which she is to do today. -continue to monitor for now. Would consider low dose BB. - Patient also has follow-up coming up with Dr. Chicas Body mass index (BMI) of 50.0 to 59.9 in adult 0 05/16/2019 Overview: Per Obesity protocol - Per Obesity protocol - Per Obesity protocol Depression with anxiety 08/06/2018 Last Assessment & Plan: Stable on sertraline Encounter for screening mammogram for breast can cer 08/06/2018 Overview: Neg 03/22; Primary osteoarthritis of left knee 08/06/2018 Venous insufficiency 08/06/2018 Gastroesophageal reflux disease without esophagi tis 08/06/2018 Last Assessment & Plan: Controlled on pepcid Mixed dyslipidemia 12/04/2016 documented as of this encounter (statuses as of 03/03/2024) Resolved Problems Problem Noted Date Diagnosed Date Resolved Date Problems related to living alone 08/25/2022 10/26/2023 Last Assessment & Plan: Office of aging involved. Qualifies for CG Body mass index (BMI) of 45. 0 to 49.9 in adult 12/13/2018 05/19/2019 Overview: Per Obesity protocol - Per Obesity protocol Body mass index (BMI) of 50. 0 to 59.9 in adult 10/11/2018 12/16/2018 Overview: Per Obesity protocol Obesity, morbid (more than 1 00 lbs over ideal weight or BMI > 40) 02/15/2018 10/13/2018 Overview: Per Obesity protocol Body mass index (BMI) of 45. 0 to 49.9 in adult 02/02/2017 03/19/2018 Overview: Per Obesity protocol #1 documented as of this encounter (statuses as of 03/03/2024) Immunizations Name Administration Dates Next Due COVID-19 mRNA, LNP-s, No Pre serve, 2-Dose Series (Pfizer) 09/13/2020,08/23/2020 Seasonal Influenza, PF, 6 M & above, IM , (FluLaval or Fluzone) 02/19/2023,02/12/2022,01/23/2021,2016 Seasonal Influenza, Quadriva lent, No Preserve, IM 01/05/2019,02/25/2018 Seasonal Influenza, Quadriva lent, No Preserve, Mdck 02/14/2020 Seasonal Influenza, Trivalen t, (IIV3), PF, (Fluzone) 02/29/2024 TDAP (age 10 and older)(Boostrix) 09/03/2016 Zoster Vaccine Recombinant (Shingrix) 10/03/2020 documented as of this encounter Social History Tobacco Use Types Packs/Day Years Used Date Smoking Tobacco: Former Cigarettes Q uit: 12/08/1999 Passive Smoke Exposure: Past Smokeless Tobacco: Never Alcohol Use Standard Drinks/Week Comments No 0 (1 standard drink = 0.6 oz pur e alcohol) PHQ-2 Answer Date Recorded PHQ-2 Score 0 12/16/2019 Hunger Vital Sign Answer Date Recorded Within the past 12 months, y ou worried that your food would run out before you got the money to buy more. Patient declined Within the past 12 months, t he food you bought just didn't last and you didn't have money to get more. Patient declined Childcare Answer Date Recorded Do you feel overwhelmed with taking care of a child, family member or friend? No 08/28/2023 Does your family need help f inding childcare? (Household - for ages 0-17 years) Not on file 08/28/2023 Clothing Answer Date Recorded Have you been unable to get clothing when it was really needed? No 08/28/2023 Is your family able to get c lothes or diapers when needed? (Household - for ages 0-17 years) Not on file 08/28/2023 Personal Safety Answer Date Recorded Do you feel unsafe or have concerns for your saf ety? No 08/28/2023 Do you have concerns for you r family's safety? (Household - for ages 0-17 years) Not on file 08/28/2023 Utilities Answer Date Recorded Do you have trouble paying y our heating, water, or electric bill? No 08/28/2023 Is your family able to pay t he heat, water, or electric bill? (Household - for ages 0-17 years) Not on file 08/28/2023 Does your family have access to good internet? (Household - for ages 0-17 years) Not on file 08/28/2023 Employment Status Answer Date Recorded Are you unemployed or without regular income? No 08/28/2023 Does the household have a re lar source of income? (Household - for ages 0-17 years) Not on file 08/28/2023 Social Connections Answer Date Recorded How often do you feel lonely or isolated from th ose around you? Never 08/28/2023 Financial Resource Strain Answer Date R ecorded Do you have any trouble payi ng for your medications, or do you think you might in the future? No 08/28/2023 Does your family have troubl e paying for medicine? (Household - for ages 0-17 years) Not on file 08/28/2023 Transportation Needs Answer Date Record ed READ ONLY Do you have troubl e getting a ride to medical visits or work? Never True 08/28/2023 Does your family have a hard time getting a ride to doctors visits? (Household - for ages 0-17 years) Not on file 08/28/2023 Has lack of transportation k ept you from medical appointments, meetings, work, or from getting things needed for daily living? Check all that apply. (Adult - for ages 18 years and over) Not on file 08/28/2023 Do you (or your family) have trouble finding or paying for a ride (transportation)? (Household - for ages 0-17 years) Not on file 08/28/2023 Housing Stability Answer Date Recorded Do you currently live in a s helter or have no steady place to sleep at night? No 08/28/2023 READ ONLY Do you think you a re at risk of becoming homeless? No 08/28/2023 Does your family worry about paying for your home or becoming homeless? (Household - for ages 0-17 years) Not on file 0 08/28/2023 Are you homeless or worried that you might be in the future? (Adult - for ages 18 years and over) Not on file Are you (or your family) dorota eless or worried that you might be in the future? (Household - for ages 0-17 years) Not on file Food Insecurity Answer Date Recorded Do you need food for this week? No 08/28/2023 Are you able to get enough f ood for your family? (Household - for ages 0-17 years) Not on file 08/28/2023 Does your family need food t his week? (Household - for ages 0-17 years) Not on file 08/28/2023 Do you always have enough fo od for your family? (Household - for ages 0-17 years) Not on file 08/28/2023 Sex and Gender Information Value Date Recorded Sex Assigned at Female 01/28/2019 10:36 AM EDT Gender Identity Female 01/28/2019 10:36 AM EDT Sexual Orientation Straight 11/16/2018 10 :16 AM EDT Job Start Date Occupation Industry Not on file Not on file Not on file documented as of this encounter Plan of Treatment Upcoming Encounters Date Type Department Care Team (Late st Contact Info) Description 08/29/2024 11:40 AM EDT Office Visit [facility] [address] [place] [id number] SeptemberMarlon MD [address] [place] [address] Scheduled Procedures Name Priority Associated Diagnoses Date/Ti me COLONOSCOPY FLEXIBLE PROXIMA L DIAGNOSTIC Recall Family history of colon cancer Health Maintenance Due Date Last Done Comments HIV Screening 1984 Hepatitis C Screening 10/11/1987 Hepatitis B Vaccine (1 of 3 - 19+ 3-dose series) 1988 Cologuard 2014 Fecal Occult Blood Test 2014 Sigmoidoscopy 2014 Zoster Vaccines (2 of 2) 11/28/2020 10/03/2020 Depression Monitoring 12/15/2020 12/16/2019 Mammogram 01/09/2023 01/09/2022, 11/02, 03/27/2020, Additional history exists COVID-19 Vaccine ( season) 2024 07/01/2022, 07/01/2022, 09/13/2020, Additional history exists GFR 10/25/2024 10/26/2023, 08/03, 08/12/2022, Additional history exists Colonoscopy 11/07/2025 11/07/2020 Colorectal Cancer Screening 11/07/2025 DTap/Tdap Vaccines (2 - Td or Tdap) 09/03/2026 09/03/2016 Albumin/Creatinine Ratio 09/13/2026 09/14/2023 Diabetes Screening 10/25/2026 10/26/2023, 0 08/25/2022, 08/12/2022, Additional history exists Lipid Panel 10/25/2028 10/26/2023, 11/02, 10/09/2020, Additional history exists RETIRED - COLONOSCOPY-EVERY 5 YRS AGES 18-100 Discontinued 11/07/2020 Pneumococcal Vaccine: Pediatrics (0 to 5 Years) and At-Risk Patients (6 to 64 Years) Aged Out 07/04/2022 No longer eligible based on patient's age to complete this topic Influenza Vaccine (FLU shot) Completed 02/29/2024, 02/19/2023, 02/12/2022, Additional history exists HPV (Gardasil) Vaccine Aged Out No lo nger eligible based on patient's age to complete this topic MENINGOCOCCAL (MENACTRA/MENVEO) Aged Out No longer eligible based on patient's age to complete this topic documented as of this encounter Medical Devices Not on filedocumented as of this encounter Care Teams Hr Administrator Relationship Specialty Start Date End Date Michelle De Luna MD [address] [place] [id number] PCP - General Internal Medicine 11/13/23 documented as of this encounter
--- OUTSIDE RECORDS SUMMARY | 2024-03-30 14:52 | External Medical Summary | Summary of Care ---
Author Name Unknown Organization [facility] Address [address] [place] [address] Phone [phone] Care Team Providers Care Granulating Machine Operator Name Role Phone Michelle De Luna MD Primary Care Provider Reason for Visit * Reason Onset Date Comments Follow Up 4 month follow u p.No concerns. Medication Administration 02/29/2024 Flu an d/or Pneumo Inj Encounter Details Date Type Department Care Team ([facility] st Contact Info) Description 02/29/2024 12:40 PM EDT Office Visit [facility] [address] [place] [address] SeptemberMarlon MD [address] [place] [address] Need for prophylactic vaccination and inoculation against influenza*; HTN, goal below 130/80; Mixed dyslipidemia; Body mass index (BMI) of 50.0 to 59.9 in adult (HCC); Depression with anxiety; Diarrhea, unspecified type Allergies Active Allergy Reactions Criticality Noted Date Comments Sulfamethoxazole-Trimeth oprim Itching,Rash 06/07/2016 Mild rash and itching, not hives. Ciprofloxacin Other (Please comment) Medium 02/29/2016 Lightheaded and dizzy Fluticasone Propionate 04/07/2016 burning Lisinopril Other (Please comment) 07/31/2022 Angioneurotic reaction documented as of this encounter (statuses as of 02/29/2024) Medications Medication Sig Dispensed Refills Start Date End Date Status Famotidine 40 MG Oral Tablet (Pepcid)Indicatio ns:Gastroesophage al reflux disease without esophagitis Take 0.5 Tablets by mouth at bedtime. 45 Tablet 3 05/25/2023 Active Furosemide 40 MG Oral Tablet (Lasix)Indication s:Obesity, morbid (more than 100 lbs over ideal weight or BMI > 40) (HCC),Venous insufficiency,Tavares ma, unspecified type Take 1 Tablet by mouth in the morning. 90 Tablet 3 05/25/2023 Active Multivitamin Adult Oral TabletIndications :Prophylactic measure To take one tablet by mouth daily. 90 Tablet 3 05/25/2023 Active EPINEPHrine 0.3 MG/0.3ML Injection Solution Auto-injector (Autoinjector)Ind ications:Angioedcris griffin, subsequent encounter For a severe reaction: Inject 0.3 mg in outer thigh following instructions on package and go to the Emergency room. 2 Each 06/23/2023 Active Albuterol Sulfate HFA 108 (90 Base) MCG/ACT Inhalation Aerosol SolutionIndicatio ns:COVID-19 virus infection INHALE 2 PUFFS BY MOUTH EVERY 6 HOURS NEEDED FOR WHEEZING OR COUGH. 18 g 5 08/20/2023 Active hydroCHLOROthiazi de 12.5 MG Oral Capsule Take 1 Capsule by mouth in the morning. 90 Capsule 3 08/28/2023 Active methylPREDNISolon e 4 MG Oral Tablet Therapy Pack (Medrol Dosepack) follow package directions 21 Tablet 08/28/2023 Active Additional Information Patient not taking.Reported on 02/29/2024 amLODIPine Besylate 5 MG Oral Tablet (Norvasc)Indicati ons:HTN, goal below 130/80 Take 1 Tablet by mouth in the morning. 90 Tablet 3 09/14/2023 Active Sertraline HCl 50 MG Oral Tablet (Zoloft)Indicatio ns:Depression with anxiety TAKE 1.5 TABLETS BY MOUTH IN THE MORNING 135 Tablet 3 12/23/2023 Active Potassium Chloride ER 10 MEQ Oral Tablet Extended ReleaseIndication s:Venous insufficiency,Tavares ma, unspecified type TAKE 1 TABLET BY MOUTH EVERY DAY IN THE MORNING 90 Tablet 3 12/23/2023 Active Loratadine 10 MG Oral Tablet (Claritin)Indicat ions:Allergic rhinitis, unspecified seasonality, unspecified trigger TAKE 1 TABLET BY MOUTH EVERY DAY IN THE MORNING 90 Tablet 3 12/23/2023 Active Rosuvastatin Calcium 5 MG Oral Tablet (Crestor)Indicati ons:Mixed dyslipidemia TAKE 1 TABLET BY MOUTH EVERY DAY IN THE MORNING 90 Tablet 3 12/23/2023 Active Cyclobenzaprine HCl 10 MG Oral Tablet (Flexeril)Indicat ions:Left-sided low back pain with left-sided sciatica, unspecified chronicity TAKE ONE TABLET BY MOUTH TWO TIMES A DAY NEEDED FOR MUSCLE SPASMS 60 Tablet 1 02/22/2024 Active Probiotic (Lactobacillus) Oral CapsuleIndication s:Diarrhea, unspecified type Take 1 Capsule by mouth in the morning and 1 Capsule before bedtime. 60 Capsule 5 02/29/2024 Active Probiotic (Lactobacillus) Oral CapsuleIndication s:Diarrhea, unspecified type Take 1 Capsule by mouth in the morning and 1 Capsule before bedtime. 60 Capsule 5 05/25/2023 Discontinue d(Refill) documented as of this encounter (statuses as of 02/29/2024) Active Problems Problem Noted Date Diagnosed Date [...] as of this encounter (statuses as of 02/29/2024) Resolved Problems Problem Noted Date Diagnosed Date [...] as of this encounter (statuses as of 02/29/2024) Immunizations Name Administration Dates Next Due COVID-19 [...] 08/28/2023 Does the household have a re gular source of income? (Household - for ages [...] on file documented as of this encounter Last Filed Vital Signs Vital Sign Reading Time Taken Comments Blood Pressure 140/86 02/29/2024 12:32 PM EDT Pulse 106 02/29/2024 12:32 PM EDT Temperature 36.6 C (97.8 F) 02/29/2024 1 2:32 PM EDT Respiratory Rate 16 02/29/2024 12:3 2 PM EDT Oxygen Saturation 98% 02/29/2024 12: 32 PM EDT Inhaled Oxygen Concentration - - Weight 118.9 kg (262 lb 3.2 oz) 024 12:32 PM EDT Height 162.6 cm (5' 4") 02/29/2024 12:3 2 PM EDT Body Mass Index 45.01 02/29/2024 12:32 PM EDT documented in this encounter Progress Notes * Marlon Umanzor MD - 02/29/2024 12:48 PM EDT Images from the original note were not included. Assessment and Plan 1. HTN, goal below 130/80 Blood pressure high normal today. Joint decision to not make any changes to blood pressure medications today. CMP and CBC prior to next appointment. She will continue home blood pressure monitoring and notify the office if blood pressures rise at home. Note history of lip swelling with lisinopril. - COMPREHENSIVE METABOLIC PANEL; Future - CBC WITH WBC DIFFERENTIAL; Future 2. Mixed dyslipidemia Continue statin. Lipid panel prior to next appointment. - LIPID PANEL WITH DIRECT LDL IF TG IS HIGH; Future 3. Body mass index (BMI) of 50.0 to 59.9 in adult (HCC) BMI 45. - HEMOGLOBIN A1C; Future 4. Depression with anxiety Continue sertraline. 5. Diarrhea, unspecified type - Probiotic (Lactobacillus) Oral Capsule; Take 1 Capsule by mouth in the morning and 1 Capsule before bedtime. Dispense: 60 Capsule; Refill: 5 6. Need for prophylactic vaccination and inoculation against influenza - INFLUENZA VAC, TRIVALENT, (IIV3), PF, 0.5 ML (FLUZONE) Wrap-Up Follow up in 6 months. History of Present Illness The patient is a 53 year old female with past medical history of dyslipidemia, HTN, obesity, GERD, depression and anxiety who presents for follow up. 53-year-old female presents for routine follow up. She has a history of hypertension which is the primary concern at today's visit. She currently takes amlodipine 5 mg daily along with hydrochlorothiazide 12.5 mg daily. Blood pressure in office today is 140/86. Patient feels well. Denies chest painor shortness of breath. Lower extremity edema has significantly improved since last visit. She has a history of dyslipidemia currently taking rosuvastatin. She also takes sertraline for depression and anxiety. She was agreeable to flu shot today. She was due for lab work between now and next appointment. Physical Exam Vitals: 02/29/24 1232 Temp: 36.6 C (97.8 F) Pulse: 106 Resp: 16 SpO2: 98% BP: 140/86 BMI: 44.98 Physical Exam Physical Exam Vitals reviewed. Constitutional: General: She is not in acute distress. Comments: Using walker for ambulation. Pulmonary: Effort: Pulmonary effort is normal. No respiratory distress. Neurological: General: No focal deficit present. Mental Status: She is alert. Psychiatric: Mood and Affect: Mood normal. Behavior: Behavior normal. This note has been completed in part utilizing HW Speech Voice Recognition Software. Due to technical limitations of the software, grammatical errors, random word insertions, prounoun errors, and incomplete sentences may occur. Any formal questions or concerns about the content, text, or information contained within the body of this dictation should be directly addressed to the provider for clarification. * Bhavna Becerra MED ASSIST - 02/29/2024 12:32 PM EDT PRE - ADMINISTRATION DOCUMENTATION Are you experiencing any cold symptoms or fever? No Have you had Guillain-Belmont Syndrome (an illness that causes paralysis) within the last 6 weeks? No Have you had the flu shot in the past? YES Have you ever had a reaction to the flu shot? No ARABELLA Salcedo, 02/29/2024 12:32 PM Immunization Administration Documentation Time Out Procedure Performed: Yes Patient Identified (Ask Name/Date of ): Yes Does the patient have a fever greater than 101 degrees today? No Patient allergic to latex? No VFC Stock: No Immunization(s) verified: Yes, Immunization Name: Flu, VIS Sheet(s) given: Yes Verified Side and Site: Yes Verified Shot(s) with Parent(s)/Patient: Yes documented in this encounter Nursing Notes * Bhavna Becerra MED ASSIST - 02/29/2024 12:37 PM EDT The patient has been properly identified by confirmation of name and date of . Chief Complaint Patient presents with Follow Up 4 month follow up. No concerns. Medication Administration Flu and/or Pneumo Inj documented in this encounter Plan of Treatment Upcoming Encounters Date Type Department Care Team (Late st Contact Info) Description 08/29/2024 11:40 AM EDT Office Visit [facility] [address] [place] [address] SeptemberMarlon MD [address], [place] [id number] Scheduled Orders Name Type Priority Associated Diagnoses Orde r Schedule COMPREHENSIVE METABOLIC PANEL Lab Routine HTN, goal below 130/80 Expected: 02/29/2024 (Approximate), Expires: 02/28/2025 LIPID PANEL WITH DIRECT LDL IF TG IS HIGH Lab Routine Mixed dyslipidemia Expected: 02/29/2024, Expires: 02/28/2025 HEMOGLOBIN A1C Lab Routine Body mass index (BMI) of 50.0 to 59.9 in adult (HCC) Expected: 02/29/2024 (Approximate), Expires: 02/28/2025 CBC WITH WBC DIFFERENTIAL Lab Routine HTN, goal below 130/80 Expected: 02/29/2024 (Approximate), Expires: 02/28/2025 Scheduled Procedures Name Priority Associated Diagnoses Date/Ti [...] Not on filedocumented as of this encounter Visit Diagnoses Diagnosis Need for prophylactic vaccination and inoculation against influenza- Primary HTN, goal below 130/80 Unspecified essential hypertension Mixed dyslipidemia Mixed hyperlipidemia Body mass index (BMI) of 50.0 to 59.9 in adult (HCC) Depression with anxiety Dysthymic disorder Diarrhea, unspecified type documented in this encounter Care Teams Granulating Machine Operator Relationship Specialty Start Date End Date Michelle De Luna MD [address] [place] [place] [address] PCP - General Internal Medicine 11/13/23 documented as of this encounter
--- OUTSIDE RECORDS SUMMARY | 2024-03-30 14:52 | External Medical Summary | Summary of Care ---
Author Name Unknown Organization [facility] Address [address] [place] [address] Phone [phone] Care Team Providers Care Theatre Program Director Name Role Phone Michelle De Luna MD Primary Care Provider [phone] Reason for Visit * Reason Comments eRx-Medication Refill Encounter Details Date Type Department Care Team (Late st Contact Info) Description 02/18/2024 Refill [facility] [address] [place] [address] September, Marlon Avelar MD [address] [place] [address] Left-sided low back pain with left-sided sciatica, unspecified chronicity Allergies Active Allergy Reactions Criticality Noted Date Comments Sulfamethoxazole-Trimeth oprim Itching,Rash 06/07/2016 Mild rash and itching, not hives. Ciprofloxacin Other (Please comment) Medium 02/29/2016 Lightheaded and dizzy Fluticasone Propionate 04/07/2016 burning Lisinopril Other (Please comment) 07/31/2022 Angioneurotic reaction documented as of this encounter (statuses as of 02/22/2024) Medications Medication Sig Dispensed Refills Start Date [...] mouth daily. 90 Tablet 3 05/25/2023 Active Probiotic (Lactobacillus) Oral CapsuleIndication s:Diarrhea, unspecified type Take 1 Capsule by mouth in the morning and 1 Capsule before bedtime. 60 Capsule 5 05/25/2023 Active EPINEPHrine 0.3 MG/0.3ML Injection Solution Auto-injector (Autoinjector)Ind ications:Chery griffin, subsequent encounter For a severe reaction: [...] follow package directions 21 Tablet 08/28/2023 Active amLODIPine Besylate 5 MG Oral Tablet (Norvasc)Indicati [...] MUSCLE SPASMS 60 Tablet 1 02/22/2024 Active Cyclobenzaprine HCl 10 MG Oral Tablet (Flexeril)Indicat ions:Left-sided low back pain with left-sided sciatica, unspecified chronicity TAKE ONE TABLET BY MOUTH TWO TIMES A DAY NEEDED FOR MUSCLE SPASMS 60 Tablet 1 12/23/2023 4 Discontinue d(Refill) documented as of this encounter (statuses as of 02/22/2024) Active Problems Problem Noted Date Diagnosed Date [...] as of this encounter (statuses as of 02/22/2024) Resolved Problems Problem Noted Date Diagnosed Date [...] as of this encounter (statuses as of 02/22/2024) Immunizations Name Administration Dates Next Due COVID-19 mRNA, LNP-s, No Pre serve, 2-Dose Series (Pfizer) 09/13/2020,08/23/2020 Seasonal Influenza, PF, 6 M & above, IM , (FluLaval or Fluzone) 02/19/2023,02/12/2022,01/23/2021,2016 Seasonal Influenza, Quadriva lent, No Preserve, IM 01/05/2019,02/25/2018 Seasonal Influenza, Quadriva lent, No Preserve, Mdck 02/14/2020 TDAP (age 10 and older)(Boostrix) 09/03/2016 Zoster [...] on file documented as of this encounter Miscellaneous Notes * Telephone Encounter - Michelle De Luna MD - 02/22/2024 6:39 AM EDTSigned Prescriptions: Disp Refills Cyclobenzaprine HCl 10 MG Oral Tablet (Fle*60 Tab*1 Sig: TAKE ONE TABLET BY MOUTH TWO TIMES A DAY NEEDED FOR MUSCLE SPASMS Authorizing Provider: MICHELLE DE LUNA * Telephone Encounter - Tolu Munroe [facility] - 02/19/2024 5:02 PM EDTPending Prescriptions: Disp Refills Cyclobenzaprine HCl 10 MG Oral Tablet [Pha*60 Tab*1 Sig: TAKE ONE TABLET BY MOUTH TWO TIMES A DAY NEEDED FOR MUSCLE SPASMS * Telephone Encounter - Tolu Munroe [facility] - 02/19/2024 5:02 PM EDT Refill pharmacists currently not authorized to approve refills for the pended medication(s) per refill protocol. Please approve if appropriate. Pending Prescriptions: Disp Refills Cyclobenzaprine HCl 10 MG Oral Tablet [Pha*60 Tab*1 Sig: TAKE ONE TABLET BY MOUTH TWO TIMES A DAY NEEDED FOR MUSCLE SPASMS Last Visit: 10/26/2023 (in office), Visit date not found (telemedicine) Next Visit: 02/29/2024 If no future appointments scheduled, and last appointment is greater than a year ago, please schedule patient for a follow-up appointment Last date the medication was ordered: 12-23-23 Pharmacy: [id number] [facility] Is this request for a controlled substance?No Urine Drug Screen:No results found for this or any previous visit. Patient Phone Numbers Labs: Lab Results Component Value Date/Time CREAT 0.9 10/26/2023 11:34 AM CREAT 0.9 11/22/2019 10:20 AM POTASSIUM 4.0 10/26/2023 11:34 AM POTASSIUM 5.1 11/22/2019 10:20 AM TSH 3.00 05/27/2022 12:17 PM TSH 2.25 08/06/2018 12:19 PM LDL 68 10/26/2023 11:34 AM LDL 82 11/22/2019 10:20 AM ALT 21 10/26/2023 11:34 AM ALT 13 11/22/2019 10:20 AM HGBA1C 5.3 11/26/2021 11:34 AM HGBA1C 5.4 08/06/2018 12:19 PM Hemant Kwong.Ph. Clinical Pharmacist [facility] [address] [place] [address], [address] [place] [address] MC: [phone] 02/19/2024,5:02 PM documented in this encounter Plan of Treatment Upcoming Encounters Date Type Department Care Team (Late st Contact Info) Description 02/29/2024 12:40 PM EDT Office Visit [facility] [address] [place] [address] SeptemberMarlon MD [address], [place] [phone] Scheduled Procedures Name Priority Associated Diagnoses Date/Ti [...] 2024 07/01/2022, 07/01/2022, 09/13/2020, Additional history exists Influenza Vaccine (FLU shot) (#1) 2024 02/19/2023, 02/12/2022, 01/23/2021, Additional history exists GFR 10/25/2024 10/26/2023, 08/03, [...] on patient's age to complete this topic HPV (Gardasil) Vaccine Aged Out No lo nger eligible based on patient's age to complete this topic MENINGOCOCCAL (MENACTRA/MENVEO) Aged Out No longer eligible based on patient's age to complete this topic documented as of this encounter Medical Devices Not on filedocumented as of this encounter Visit Diagnoses Diagnosis Left-sided low back pain with left-sided sciatica, unspecified chronicity documented in this encounter Care Teams Theatre Program Director Relationship Specialty Start Date End Date Michelle De Luna MD [address] [place] [address] PCP - General Internal Medicine 11/13/23 documented as of this encounter
--- OUTSIDE RECORDS SUMMARY | 2024-03-30 14:53 | External Medical Summary | Summary of Care ---
Author Name Unknown Organization [facility] Address [address] [place] [address] Phone [phone] Care Team Providers Care Tread Booker Name Role Phone Faizan Chicas MD Primary Care Provider [phone] Reason for Visit * Reason Comments Blood Pressure Check Pt states that her Bp has been running high Encounter Details Date Type Department Care Team (Latest Contact Info) Description 10/26/2023 11:20 AM EDT Office Visit [facility] [address] [place] [address] September, Marlon Avelar MD [address] [place] [address] HTN, goal below 130/80*; Hyperlipidemia, unspecified hyperlipidemia type; Venous insufficiency; BMI 45.0-49.9, adult (HCC); Primary osteoarthritis of left knee Allergies Active Allergy Reactions Criticality Noted Date Comments Sulfamethoxazole-Trimeth oprim Itching,Rash 06/07/2016 Mild rash and itching, not hives. Ciprofloxacin Other (Please comment) Medium 02/29/2016 Lightheaded and dizzy Fluticasone Propionate 04/07/2016 burning Lisinopril Other (Please comment) 07/31/2022 Angioneurotic reaction documented as of this encounter (statuses as of 10/26/2023) Medications Medication Sig Dispensed Refills Start Date [...] the morning. 90 Tablet 3 05/25/2023 Active Loratadine 10 MG Oral Tablet (Claritin)Indicatio ns:Allergic rhinitis, unspecified seasonality, unspecified trigger Take 1 Tablet by mouth in the morning. 90 Tablet 2 05/25/2023 Active Multivitamin Adult Oral TabletIndications:P rophylactic measure To take one tablet by mouth daily. 90 Tablet 3 05/25/2023 Active Potassium Chloride ER 10 MEQ Oral Tablet Extended Release (Klor-Con 10)Indications:Veno us insufficiency,Edema , unspecified type Take 1 Tablet by mouth in the morning. 90 Tablet 2 05/25/2023 Active Probiotic (Lactobacillus) Oral CapsuleIndications: Diarrhea, unspecified type Take 1 Capsule by mouth in the morning and 1 Capsule before bedtime. 60 Capsule 5 05/25/2023 Active Rosuvastatin Calcium 5 MG Oral Tablet (Crestor)Indication s:Mixed dyslipidemia Take 1 Tablet by mouth in the morning. 90 Tablet 2 05/25/2023 Active Sertraline HCl 50 MG Oral Tablet (Zoloft)Indications :Depression with anxiety Take 1.5 Tablets by mouth in the morning. 135 Tablet 2 05/25/2023 Active EPINEPHrine 0.3 MG/0.3ML Injection Solution [...] Active amLODIPine Besylate 5 MG Oral Tablet (Norvasc)Indication s:HTN, goal below 130/80 Take 1 Tablet by mouth in the morning. 90 Tablet 3 09/14/2023 Active Cyclobenzaprine HCl 10 MG Oral Tablet (Flexeril)Indicatio ns:Left-sided low back pain with left-sided sciatica, unspecified chronicity TAKE ONE TABLET BY MOUTH TWO TIMES A DAY NEEDED FOR MUSCLE SPASMS 60 Tablet 1 09/18/2023 Active documented as of this encounter (statuses as of 10/26/2023) Active Problems Problem Noted Date Diagnosed Date [...] as of this encounter (statuses as of 10/26/2023) Resolved Problems Problem Noted Date Diagnosed Date [...] as of this encounter (statuses as of 10/26/2023) Immunizations Name Administration Dates Next Due COVID-19 mRNA, LNP-s, No Pre serve, 2-Dose Series ([employer]) 09/13/2020,08/23/2020 Seasonal Influenza, PF, 6 M & [...] Passive Smoke Exposure: Past Smokeless Tobacco: Never Tobacco Cessation:Counseling Given: Not Answered Alcohol Use Standard Drinks/Week Comments No 0 [...] Sign Reading Time Taken Comments Blood Pressure 132/88 10/26/2023 10:22 AM EDT Pulse 103 10/26/2023 10:22 AM EDT Temperature 35.8 C (96.4 F) 10/26/2023 1 0:22 AM EDT Respiratory Rate 18 10/26/2023 10:2 2 AM EDT Oxygen Saturation 98% 10/26/2023 10: 22 AM EDT Inhaled Oxygen Concentration - - Weight 124.1 kg (273 lb 9.6 oz) 024 10:22 AM EDT Height 162.6 cm (5' 4") 10/26/2023 10:2 2 AM EDT Body Mass Index 46.96 10/26/2023 10:22 AM EDT documented in this encounter Progress Notes * Marlon Umanzor MD - 10/26/2023 11:01 AM EDT Images from the original note were not included. Assessment and Plan 1. HTN, goal below 130/80 BP at goal. Continue HCTZ and amlodipine. Lab work as below to monitor electrolytes and renal function. - COMPREHENSIVE METABOLIC PANEL; Future - CBC; Future 2. Hyperlipidemia, unspecified hyperlipidemia type Continue rosuvastatin 5 mg daily. - LIPID PANEL WITH DIRECT LDL IF TG IS HIGH; Future 3. Venous insufficiency Multifactorial lower extremity edema. Venous insufficiency, amlodipine both likely contributory. 4. BMI 45.0-49.9, adult (HCC) 5. Primary osteoarthritis of left knee Continue use of walker. Wrap-Up Follow up in 4 months. History of Present Illness The patient is a 53 year old female with past medical history of dyslipidemia, venous insufficiency, HTN, obesity, GERD, depression who presents for follow up. Presents primarily for HTN follow up. She has a history of hypertension currently on amlodipine andhydrochlorothiazide. She was previously on lisinopril, however, had some episodes of dizziness and an episode of face swelling that was concerning for angioedema. This was discontinued. BP in office today 132/88. She denies chest pain, shortness of breath, lightheadedness, dizziness. She does have trace edema bilaterally that maybe a result of the amlodipine versus some dependent edema. Also has a history of hyperlipidemia on rosuvastatin 5 mg daily. Physical Exam Vitals: 10/26/23 1022 Temp: 35.8 C (96.4 F) Pulse: 103 Resp: 18 SpO2: 98% BP: 132/88 BMI: 46.94 Physical Exam Physical Exam Vitals reviewed. Constitutional: General: She is not in acute distress. Comments: Using rolling walker to assist with ambulation. Cardiovascular: Rate and Rhythm: Normal rate and regular rhythm. Heart sounds: No murmur heard. Pulmonary: Effort: Pulmonary effort is normal. No respiratory distress. Breath sounds: Normal breath sounds. No wheezing. Musculoskeletal: Comments: 1+ edema of the lower extremities bilaterally above the ankle. Neurological: General: No focal deficit present. Mental Status: She is alert. This note has been completed in part utilizing [employer] Voice Recognition Software. Due to technical limitations of the software, grammatical errors, random word insertions, prounoun errors, and incomplete sentences may occur. Any formal questions or concerns about the content, text, or information contained within the body of this dictation should be directly addressed to the provider for clarification. documented in this encounter Nursing Notes * Jayshree Lema LPN - 10/26/2023 10:22 AM EDT Vanna Gonzales is a 53 year old female who presents today for Chief Complaint Patient presents with Blood Pressure Check Pt states that her Bp has been running high documented in this encounter Plan of Treatment Upcoming Encounters Date Type Department Care Team (Late st Contact Info) Description 11/27/2023 11:45 AM EDT Imaging Radiology [facility] 1st [facility], [address] [place] [address] 02/26/2024 11:40 AM EDT Office Visit [facility] [address] [place] [phone] Marlon Umanzor MD [address] [place] [address] Pending Results Name Type Priority Associated Diagnoses Date /Time COMPREHENSIVE METABOLIC PANEL Lab Routine HTN, goal below 130/80 10/26/2023 11:34 AM EDT CBC Lab Routine HTN, goal below 130/80 10/26/2023 11:34 AM EDT LIPID PANEL WITH DIRECT LDL IF TG IS HIGH Lab Routine Hyperlipidemia, unspecified hyperlipidemia type 10/26/2023 11:34 AM EDT Scheduled Orders Name Type Priority Associated Diagnoses Orde r Schedule COMPREHENSIVE METABOLIC PANEL Lab Routine HTN, goal below 130/80 Expected: 10/26/2023 (Approximate), Expires: 10/25/2024 CBC Lab Routine HTN, goal below 130/80 Expected: 10/26/2023 (Approximate), Expires: 10/25/2024 LIPID PANEL WITH DIRECT LDL IF TG IS HIGH Lab Routine Hyperlipidemia, unspecified hyperlipidemia type Expected: 10/26/2023, Expires: 10/25/2024 Scheduled Procedures Name Priority Associated Diagnoses Date/Ti me COLONOSCOPY FLEXIBLE PROXIMA L DIAGNOSTIC Recall Family history of colon cancer Health Maintenance Due Date Last Done Comments HIV Screening 1984 Hepatitis C Screening 10/11/1987 Hepatitis B (1 of 3 - 19+ 3-dose series) 1988 Cologuard 2014 Fecal Occult Blood Test 2014 Sigmoidoscopy 2014 Zoster Vaccines (2 of 2) 11/28/2020 10/03/2020 Depression Monitoring 12/15/2020 12/16/2019 COVID-19 Vaccine ( season) 2023 07/01/2022, 07/01/2022, 09/13/2020, Additional history exists Mammogram 01/09/2023 01/09/2022, 072 11/2021, 03/27/2020, Additional history exists GFR 08/26/2023 08/25/2022, 0405/2022, 05/27/2022, Additional history exists Diabetes Screening 08/25/2025 08/25/2022, 0 08/12/2022, 05/27/2022, Additional history exists Colonoscopy 11/07/2025 11/07/2020 Colorectal Cancer Screening 11/07/2025 DTaP,Tdap,and Td Vaccines (2 - Td or Tdap) 09/03/2026 09/03/2016 Albumin/Creatinine Ratio 09/13/2026 09/14/2023 Lipid Panel 11/26/2026 11/26/2021, 06/0 12/2020, 11/22/2019, Additional history exists RETIRED - COLONOSCOPY-EVERY 5 YRS AGES 18-100 Discontinued 11/07/2020 Pneumococcal Vaccine: Pediatrics (0 to 5 Years) and At-Risk Patients (6 to 64 Years) Aged Out 07/04/2022 No longer eligible based on patient's age to complete this topic Influenza Vaccine (FLU shot) Completed 02/19/2023, 02/12/2022, 01/23/2021, Additional history exists GARDASIL-HPV IMMUNIZATION SERIES Aged Out No longer eligible based on patient's age to complete this topic MENINGOCOCCAL (MENACTRA/MENVEO) Aged Out No longer eligible based on patient's age to complete this topic documented as of this encounter Medical Devices Not on filedocumented as of this encounter Visit Diagnoses Diagnosis HTN, goal below 130/80- Primary Unspecified essential hypertension Hyperlipidemia, unspecified hyperlipidemia type Venous insufficiency Unspecified venous (peripheral) insufficiency BMI 45.0-49.9, adult (HCC) Body Mass Index 45.0-49.9, adult Primary osteoarthritis of left knee Primary localized osteoarthrosis, lower leg documented in this encounter Care Teams Tread Booker Relationship Specialty Start Date End Date Faizan Chicas MD [address] [place] [address] PCP - General Family Medicine 06/27/20 documented as of this encounter
--- OUTSIDE RECORDS SUMMARY | 2024-03-30 14:53 | External Medical Summary ---
Author Name Unknown Address Unknown Organization K01:[facility] - [address] [facility] [address] Laboratory Report Ordering Provider Test Date Status 10/26/2023 11:34:45 Final Observation Date Value Abnormality Reference (Units ) Status BUN 10/26/2023 11:34:45 13 6-20 (mg/dL) Final Creatinine 10/26/2023 11:34:45 0.9 0.5-1.0 (mg/dL) Final Glomerular filtration rate/1.73 sq M.predicted [Volume Rate/Area] in Serum, Plasma or Blood by Creatinine-based formula (CKD-EPI) 10/26/2023 11:34:45 79 >=60 (mL/min) Final eGFR is calculated based on the CKD-EPI 2020 equation Sodium 10/26/2023 11:34:45 142 135-146 (m mol/L) Final Potassium 10/26/2023 11:34:45 4.0 3.5-5.1 (m mol/L) Final Cl 10/26/2023 11:34:45 103 98-107 (mm ol/L) Final CO2 10/26/2023 11:34:45 25 22-32 (mmo l/L) Final Anion gap 10/26/2023 11:34:45 14 7-15 (mmol /L) Final Glucose 10/26/2023 11:34:45 100 70-120 (mg /dL) Final Albumin 10/26/2023 11:34:45 4.6 3.8-5.0 (g /dL) Final AST (Aspartate aminotransferase) 10/26/2023 11:34:45 24 10-35 (U/L) Final Alk Phos 10/26/2023 11:34:45 110 35-130 (U/ L) Final Bilirubin, Total 10/26/2023 11:34:45 0.5 <=1 .2 (mg/dL) Final Calcium 10/26/2023 11:34:45 9.8 8.4-10.2 ( mg/dL) Final Protein 10/26/2023 11:34:45 7.2 6.0-8.3 (g /dL) Final ALT (Alanine aminotransferase) 10/26/2023 11:34:45 21 10-35 (U/L) Final Performing Location [facility] - [address] [facility] [id number]
--- OUTSIDE RECORDS SUMMARY | 2024-03-30 14:53 | External Medical Summary | Summary of Care ---
Author Name Unknown Organization [facility] Address [address] [place] [address] Phone [phone] Care Team Providers Care Grocery Carrier Name Role Phone Michelle De Luna MD Primary Care Provider [phone] Encounter Details Date Type Department Care Team (Late st Contact Info) Description 01/19/2024 Orders Only [facility] Research Department [address] [place] [address] Gabby Arriaga CHRA My[facility] Research Other*[id number] Allergies Active Allergy Reactions Criticality Noted Date Comments Sulfamethoxazole-Trimeth oprim Itching,Rash 06/07/2016 Mild rash and itching, not hives. Ciprofloxacin Other (Please comment) Medium 02/29/2016 Lightheaded and dizzy Fluticasone Propionate 04/07/2016 burning Lisinopril Other (Please comment) 07/31/2022 Angioneurotic reaction documented as of this encounter (statuses as of 01/19/2024) Medications Medication Sig Dispensed Refills Start Date [...] Tablet 3 05/25/2023 Active Probiotic (Lactobacillus) Oral CapsuleIndications: Diarrhea, [...] THE MORNING 135 Tablet 3 12/23/2023 Active Cyclobenzaprine HCl 10 MG Oral Tablet (Flexeril)Indicatio ns:Left-sided low back pain with left-sided sciatica, unspecified chronicity TAKE ONE TABLET BY MOUTH TWO TIMES A DAY NEEDED FOR MUSCLE SPASMS 60 Tablet 1 12/23/2023 Active Potassium Chloride ER 10 MEQ [...] THE MORNING 90 Tablet 3 12/23/2023 Active documented as of this encounter (statuses as of 01/19/2024) Active Problems Problem Noted Date Diagnosed Date [...] as of this encounter (statuses as of 01/19/2024) Resolved Problems Problem Noted Date Diagnosed Date [...] as of this encounter (statuses as of 01/19/2024) Immunizations Name Administration Dates Next Due COVID-19 [...] Care Team (Late st Contact Info) Description 02/26/2024 11:40 AM EDT Office Visit [facility] [address] [place] [phone] SeptemberMarlon MD [address], [place] [id number] Scheduled Orders Name Type Priority Associated Diagnoses Orde r Schedule MYCODE SUBSEQUENT ADULT Lab Routine My[facility] Research Other*[id number] Every 6 Months for 2 Occurrences starting 01/19/2024 until 02/07/2025 Scheduled Procedures Name Priority Associated Diagnoses Date/Ti [...] 11/02, 03/27/2020, Additional history exists COVID-19 Vaccine (4 - season) 2024 07/01/2022, 07/01/2022, 09/13/2020, Additional history [...] as of this encounter Visit Diagnoses Diagnosis [facility] Research Other*[id number] documented in this encounter Care Teams Grocery Carrier Relationship Specialty Start Date End Date Michelle De Luna MD [address] [place] [address] PCP - General Internal Medicine 11/13/23 documented as of this encounter
--- OUTSIDE RECORDS SUMMARY | 2024-03-30 14:53 | External Medical Summary ---
Author Name Unknown Address Unknown Organization K01:[facility] - [facility] [place] [address] Laboratory Report Ordering Provider Test Date Status 10/26/2023 11:34:45 Final Observation Date Value Abnormality Reference (Units ) Status WBC, Total 10/26/2023 11:34:45 9.52 4.00-10.80 (K/uL) Final RBC 10/26/2023 11:34:45 4.62 3.85-5.15 (M/uL) Final Hemoglobin 10/26/2023 11:34:45 13.8 12.0-15.3 (g/dL) Final HCT 10/26/2023 11:34:45 44.3 36.0-45.2 (%) Final MCV 10/26/2023 11:34:45 95.9 81.5-97.5 (fL) Final MCH 10/26/2023 11:34:45 29.9 27.0-34.0 (pg) Final MCHC 10/26/2023 11:34:45 31.2 32.0-36.0 (g/dL) Final RDW 10/26/2023 11:34:45 13.2 11.5-15.5 (%) Final Platelets 10/26/2023 11:34:45 304 140-400 (K/uL) Final MPV 10/26/2023 11:34:45 10.6 6.6-11.1 (fL) Final Nucleated erythrocytes/100 leukocytes [Ratio] in Blood by Automated count 10/26/2023 11:34:45 0 <=0 (/100 WBCs) Final Performing Location [facility] - [address] [place] [address]
--- OUTSIDE RECORDS SUMMARY | 2024-03-30 14:53 | External Medical Summary | Summary of Care ---
Author Name Unknown Organization [facility] Address [address] [place] [address] Phone [phone] Care Team Providers Care Cycle Analyst Name Role Phone Faizan Chicas MD Primary Care Provider Encounter Details Date Type Department Care Team (Late st Contact Info) Description 10/16/2023 Telephone [facility] [address] [place] [address] Faizan Chicas MD [address] [place] [address] Allergies Active Allergy Reactions Criticality Noted Date Comments Sulfamethoxazole-Trimeth oprim Itching,Rash 06/07/2016 Mild rash and itching, not hives. Ciprofloxacin Other (Please comment) Medium 02/29/2016 Lightheaded and dizzy Fluticasone Propionate 04/07/2016 burning Lisinopril Other (Please comment) 07/31/2022 Angioneurotic reaction documented as of this encounter (statuses as of 10/20/2023) Medications Medication Sig Dispensed Refills Start Date [...] as of this encounter (statuses as of 10/20/2023) Active Problems Problem Noted Date Diagnosed Date Problems related to living alone 08/25/2022 Last Assessment & Plan: Office of aging involved. Qualifies for CG Hyperlipidemia 08/25/2022 Last Assessment & Plan: Continue [...] as of this encounter (statuses as of 10/20/2023) Resolved Problems Problem Noted Date Diagnosed Date Resolved Date Body mass index (BMI) of 45. 0 [...] as of this encounter (statuses as of 10/20/2023) Immunizations Name Administration Dates Next Due COVID-19 [...] have money to get more. Patient declined Sex and Gender Information Value Date Recorded Sex Assigned at Female 01/28/2019 10:36 AM EDT Gender Identity Female 01/28/2019 10:36 AM EDT Sexual Orientation Straight 11/16/2018 10 :16 AM EDT Job Start Date Occupation Industry Not on file Not on file Not on file documented as of this encounter Miscellaneous Notes * Telephone Encounter - Lori Burton OSA - 10/16/2023 12:59 PM EDT 10/20/23 Paperwork was mailed ot Transportation per pts request. Copy was filed up front in filing cabinet near the copy machine. A copy of paperwork was mailed to pt per pts request. Pt uses a walker and a cane on a daily basis. Pt would like to have a wheelchair or and electric wheelchair, but not sure insurance will pay for it? 10/16/23 Pt stopped by the front desk attendant and dropped off paperwork from [facility] [employer] that needscompleted for the pt. Paperwork placed in provider's mail bin on 10/16/23. When completed, mail a copy to pt and mail the original back to [facility] [employer] at [address] [place] [phone]. documented in this encounter Plan of Treatment Upcoming Encounters Date Type Department Care Team (Late st Contact Info) Description 10/26/2023 11:20 AM EDT Office Visit [facility] [address] [place] [phone] September, Marlon Avelar MD [address] [place] [address] 11/27/2023 11:45 AM EDT Imaging Radiology [address] [facility] [place] [address] Scheduled Procedures Name Priority Associated Diagnoses Date/Ti [...] 09/13/2020, Additional history exists Mammogram 01/09/2023 01/09/2022, 11/02, 03/27/2020, Additional history exists GFR 08/26/2023 08/25/2022, 08/02, 05/27/2022, Additional history exists Diabetes Screening 08/25/2025 [...] filedocumented as of this encounter Care Teams Cycle Analyst Relationship Specialty Start Date End Date Faizan Chicas MD [address] [place] [address] PCP - General Family Medicine 06/27/20 documented as of this encounter
--- OUTSIDE RECORDS SUMMARY | 2024-03-30 14:53 | External Medical Summary ---
Author Name Unknown Address Unknown Organization K01:[facility] [place] [address] [place] [id number] Laboratory Report Ordering Provider Test Date Status ERICK BREWER 10/26/2023 11:34:45 Final Observation Date Value Abnormality Reference (Units ) Status MYCODE SPECIMEN-SST 10/26/2023 11:34:45 Freezing of extracted DNA, whole blood and/or serum. Final Performing Location [facility] - [address] [place] [id number]
--- OUTSIDE RECORDS SUMMARY | 2024-03-30 14:53 | External Medical Summary | Summary of Care ---
Author Name Unknown Organization [facility] Address [address] [place] [address] Phone [phone] Care Team Providers Care Recycling Manager Name Role Phone Faizan Chicas MD Primary Care Provider [phone] Reason for Visit * Reason Onset Date Comments Nurse Documentation 10/27/2023 Encounter Details Date Type Department Care Team ([facility] st Contact Info) Description 10/27/2023 Telephone [facility] [address] [place] [address] September, Marlon Avelar MD [address] [place] [address] Nurse Documentation Allergies Active Allergy Reactions Criticality Noted Date Comments Sulfamethoxazole-Trimeth oprim Itching,Rash 06/07/2016 Mild rash and itching, not hives. Ciprofloxacin Other (Please comment) Medium 02/29/2016 Lightheaded and dizzy Fluticasone Propionate 04/07/2016 burning Lisinopril Other (Please comment) 07/31/2022 Angioneurotic reaction documented as of this encounter (statuses as of 11/03/2023) Medications Medication Sig Dispensed Refills Start Date [...] as of this encounter (statuses as of 11/03/2023) Active Problems Problem Noted Date Diagnosed Date [...] as of this encounter (statuses as of 11/03/2023) Resolved Problems Problem Noted Date Diagnosed Date [...] as of this encounter (statuses as of 11/03/2023) Immunizations Name Administration Dates Next Due COVID-19 [...] encounter Miscellaneous Notes * Telephone Encounter - Milly Padgett LPN - 10/27/2023 3:29 PM EDT ----- Message from Marlon Umanzor MD sent at 10/27/2023 12:43 PM EDT ----- Lab work looks great. No changes to medications at this time. Follow up in office as scheduled in February. Please remind patient to take home blood pressures and bring blood pressure cuff to February appointment. Marlon Umanzor MD documented in this encounter Plan of Treatment Upcoming Encounters Date Type Department Care Team (Late st Contact Info) Description 11/27/2023 11:45 AM EDT Imaging Radiology [facility] 1st [facility] [place] [address] [place] [address] 02/26/2024 11:40 AM EDT Office Visit [facility] [place] [address] [place] [facility] [place] [address] September, Marlon Avelar MD [address], [place] [phone] Scheduled Procedures Name Priority Associated Diagnoses Date/Ti [...] Depression Monitoring 12/15/2020 12/16/2019 COVID-19 Vaccine ( - season) 2023 07/01/2022, 07/01/2022, 09/13/2020, Additional history exists Mammogram 01/09/2023 01/09/2022, 11/02, 03/27/2020, Additional history exists Influenza Vaccine (FLU shot) [...] on patient's age to complete this topic GARDASIL-HPV IMMUNIZATION SERIES Aged Out No longer eligible based on patient's age to complete this topic MENINGOCOCCAL (MENACTRA/MENVEO) Aged Out No longer eligible based on patient's age to complete this topic documented as of this encounter Medical Devices Not on filedocumented as of this encounter Care Teams Recycling Manager Relationship Specialty Start Date End Date Faizan Chicas MD [address] [place] [address] PCP - General Family Medicine 06/27/20 documented as of this encounter
--- OUTSIDE RECORDS SUMMARY | 2024-03-30 14:53 | External Medical Summary | Summary of Care ---
Author Name Unknown Organization [facility] Address [address] [place] [address] Phone [phone] Care Team Providers Care Pulmonologist Intensivist Name Role Phone Faizan Chicas MD Primary Care Provider [phone] Reason for Visit * Reason Onset Date Comments Test Results 10/28/2023 Encounter Details Date Type Department Care Team ([facility] st Contact Info) Description 10/28/2023 Telephone [facility] [address] [place] [address] Faizan Chicas MD [address] [place] [address] Test Results (/) Allergies Active Allergy Reactions Criticality Noted Date Comments Sulfamethoxazole-Trimeth oprim Itching,Rash 06/07/2016 Mild rash and itching, not hives. Ciprofloxacin Other (Please comment) Medium 02/29/2016 Lightheaded and dizzy Fluticasone Propionate 04/07/2016 burning Lisinopril Other (Please comment) 07/31/2022 Angioneurotic reaction documented as of this encounter (statuses as of 10/28/2023) Medications Medication Sig Dispensed Refills Start Date [...] as of this encounter (statuses as of 10/28/2023) Active Problems Problem Noted Date Diagnosed Date [...] as of this encounter (statuses as of 10/28/2023) Resolved Problems Problem Noted Date Diagnosed Date [...] as of this encounter (statuses as of 10/28/2023) Immunizations Name Administration Dates Next Due COVID-19 [...] encounter Miscellaneous Notes * Telephone Encounter - Sahra Zacarias LPN - 10/28/2023 11:18 AM EDT ----- Message from Marlon Umanzor MD [...] Imaging Radiology [facility] [place] [address] [place] [address] 02/26/2024 11:40 AM EDT Office Visit [facility] [place] [address] [place] [id number] September, Marlon Avelar MD [address] [facility] [place] [id number] Scheduled Procedures Name Priority Associated Diagnoses Date/Ti [...] Monitoring 12/15/2020 12/16/2019 COVID-19 Vaccine ( - 2022- season) 2023 07/01/2022, 07/01/2022, 09/13/2020, Additional history exists Mammogram 01/09/2023 01/09/2022, 11/02, 03/27/2020, Additional history exists GFR 10/25/2024 10/26/2023, 08/03, [...] filedocumented as of this encounter Care Teams Pulmonologist Intensivist Relationship Specialty Start Date End Date Faizan Chicas MD [address] [place] [address] PCP - General Family Medicine 06/27/20 documented as of this encounter
--- OUTSIDE RECORDS SUMMARY | 2024-03-30 14:53 | External Medical Summary | Summary of Care ---
Author Name Unknown Organization [facility] Address [address] [place] [address] Phone [phone] Care Team Providers Care Stockbroker Name Role Phone Michelle De Luna MD Primary Care Provider [phone] Reason for Visit * Reason Comments eRx-Medication Refill Encounter Details Date Type Department Care Team (Late st Contact Info) Description 12/22/2023 Refill [facility] [address] [place] [address] September, Clarisse Avelar MD [address] [place] [address] Depression with anxiety; Left-sided low back pain with left-sided sciatica, unspecified chronicity; Venous insufficiency; Edema, unspecified type; Allergic rhinitis, unspecified seasonality, unspecified trigger; Mixed dyslipidemia Allergies Active Allergy Reactions Criticality Noted Date Comments Sulfamethoxazole-Trimeth oprim Itching,Rash 06/07/2016 Mild rash and itching, not hives. Ciprofloxacin Other (Please comment) Medium 02/29/2016 Lightheaded and dizzy Fluticasone Propionate 04/07/2016 burning Lisinopril Other (Please comment) 07/31/2022 Angioneurotic reaction documented as of this encounter (statuses as of 12/23/2023) Medications Medication Sig Dispensed Refills Start Date End Date Status Famotidine 40 MG Oral Tablet (Pepcid)Indicatio ns:Gastroesophage al reflux disease without esophagitis Take 0.5 Tablets by mouth at bedtime. 45 Tablet 3 4 Active Furosemide 40 MG Oral Tablet (Lasix)Indication s:Obesity, morbid (more than 100 lbs over ideal weight or BMI > 40) (HCC),Venous insufficiency,Tavares ma, unspecified type Take 1 Tablet by mouth in the morning. 90 Tablet 3 4 Active Multivitamin Adult Oral TabletIndications :Prophylactic measure To take one tablet by mouth daily. 90 Tablet 3 4 Active Probiotic (Lactobacillus) Oral CapsuleIndication s:Diarrhea, unspecified type Take 1 Capsule by mouth in the morning and 1 Capsule before bedtime. 60 Capsule 5 4 Active EPINEPHrine 0.3 MG/0.3ML Injection Solution Auto-injector (Autoinjector)Ind ications:Angioedcris griffin, subsequent encounter For a severe reaction: Inject 0.3 mg in outer thigh following instructions on package and go to the Emergency room. 2 Each 4 Active Albuterol Sulfate HFA 108 (90 Base) MCG/ACT Inhalation Aerosol SolutionIndicatio ns:COVID-19 virus infection INHALE 2 PUFFS BY MOUTH EVERY 6 HOURS NEEDED FOR WHEEZING OR COUGH. 18 g 5 4 Active hydroCHLOROthiazi de 12.5 MG Oral Capsule Take 1 Capsule by mouth in the morning. 90 Capsule 3 4 Active methylPREDNISolon e 4 MG Oral Tablet Therapy Pack (Medrol Dosepack) follow package directions 21 Tablet 4 Active amLODIPine Besylate 5 MG Oral Tablet (Norvasc)Indicati ons:HTN, goal below 130/80 Take 1 Tablet by mouth in the morning. 90 Tablet 3 4 Active Sertraline HCl 50 MG Oral Tablet (Zoloft)Indicatio ns:Depression with anxiety TAKE 1.5 TABLETS BY MOUTH IN THE MORNING 135 Tablet 3 4 Active Cyclobenzaprine HCl 10 MG Oral Tablet (Flexeril)Indicat ions:Left-sided low back pain with left-sided sciatica, unspecified chronicity TAKE ONE TABLET BY MOUTH TWO TIMES A DAY NEEDED FOR MUSCLE SPASMS 60 Tablet 1 4 Active Potassium Chloride ER 10 MEQ Oral Tablet Extended ReleaseIndication s:Venous insufficiency,Tavares ma, unspecified type TAKE 1 TABLET BY MOUTH EVERY DAY IN THE MORNING 90 Tablet 3 4 Active Loratadine 10 MG Oral Tablet (Claritin)Indicat ions:Allergic rhinitis, unspecified seasonality, unspecified trigger TAKE 1 TABLET BY MOUTH EVERY DAY IN THE MORNING 90 Tablet 3 4 Active Rosuvastatin Calcium 5 MG Oral Tablet (Crestor)Indicati ons:Mixed dyslipidemia TAKE 1 TABLET BY MOUTH EVERY DAY IN THE MORNING 90 Tablet 3 4 Active Loratadine 10 MG Oral Tablet (Claritin)Indicat ions:Allergic rhinitis, unspecified seasonality, unspecified trigger Take 1 Tablet by mouth in the morning. 90 Tablet 2 4 12/23/19 24 Discontinued Potassium Chloride ER 10 MEQ Oral Tablet Extended Release (Klor-Con 10)Indications:Ve nous insufficiency,Tavares ma, unspecified type Take 1 Tablet by mouth in the morning. 90 Tablet 2 4 12/23/19 24 Discontinued Rosuvastatin Calcium 5 MG Oral Tablet (Crestor)Indicati ons:Mixed dyslipidemia Take 1 Tablet by mouth in the morning. 90 Tablet 2 4 12/23/19 24 Discontinued Sertraline HCl 50 MG Oral Tablet (Zoloft)Indicatio ns:Depression with anxiety Take 1.5 Tablets by mouth in the morning. 135 Tablet 2 4 12/23/19 24 Discontinued Cyclobenzaprine HCl 10 MG Oral Tablet (Flexeril)Indicat ions:Left-sided low back pain with left-sided sciatica, unspecified chronicity TAKE ONE TABLET BY MOUTH TWO TIMES A DAY NEEDED FOR MUSCLE SPASMS 60 Tablet 1 4 12/23/19 24 Discontinued documented as of this encounter (statuses as of 12/23/2023) Active Problems Problem Noted Date Diagnosed Date [...] as of this encounter (statuses as of 12/23/2023) Resolved Problems Problem Noted Date Diagnosed Date [...] as of this encounter (statuses as of 12/23/2023) Immunizations Name Administration Dates Next Due COVID-19 mRNA, LNP-s, No Pre serve, 2-Dose Series ([place]am[place]ru) 09/13/2020,08/23/2020 Seasonal Influenza, PF, 6 M & [...] encounter Miscellaneous Notes * Telephone Encounter - Clarisse Meraz MD - 12/23/2023 6:18 PM EDTSigned Prescriptions: Disp Refills Sertraline HCl 50 MG Oral Tablet (Zoloft) 135 Ta*3 Sig: TAKE 1.5 TABLETS BY MOUTH IN THE MORNING Authorizing Provider: CLARISSE MERAZ Ordering User: ARLEN WITT Cyclobenzaprine HCl 10 MG Oral Tablet (Fle*60 Tab*1 Sig: TAKE ONE TABLET BY MOUTH TWO TIMES A DAY NEEDED FOR MUSCLE SPASMS Authorizing Provider: CLARISSE MERAZ Potassium Chloride ER 10 MEQ Oral Tablet E*90 Tab*3 Sig: TAKE 1 TABLET BY MOUTH EVERY DAY IN THE MORNING Authorizing Provider: CLARISSE MERAZ Ordering User: ARLEN WITT Loratadine 10 MG Oral Tablet (Claritin) 90 Tab*3 Sig: TAKE 1 TABLET BY MOUTH EVERY DAY IN THE MORNING Authorizing Provider: CLARISSE MERAZ Rosuvastatin Calcium 5 MG Oral Tablet (Cre*90 Tab*3 Sig: TAKE 1 TA BLET BY MOUTH EVERY DAY IN THE MORNING Authorizing Provider: CLARISSE MERAZ Ordering User: ARLEN WITT * Telephone Encounter - Arlen Witt [facility] - 12/23/2023 2:24 PM EDTPending Prescriptions: Disp Refills Cyclobenzaprine HCl 10 MG Oral Tablet (Fle*60 Tab*1 Sig: TAKE ONE TABLET BY MOUTH TWO TIMES A DAY NEEDED FOR MUSCLE SPASMS Loratadine 10 MG Oral Tablet (Claritin) 90 Tab*3 Sig: TAKE 1 TABLET BY MOUTH EVERY DAY IN THE MORNING Signed Prescriptions: Disp Refills Sertraline HCl 50 MG Oral Tablet (Zol oft) 135 Ta*3 Sig: TAKE 1.5 TABLETS BY MOUTH IN THE MORNING Authorizing Provider: CLARISSE MERAZ Ordering User: ARLEN WITT Potassium Chloride ER 10 MEQ Oral Tablet E*90 Tab*3 Sig: TAKE 1 TABLET BY MOUTH EVERY DAY IN THE MORNING Authorizing Provider: CLARISSE MERAZ Ordering User: ARLEN WITT Rosuvastatin Calcium 5 MG Oral Tablet (Cre*90 Tab*3 Sig: TAKE 1 TABLET BY MOUTH E VERY DAY IN THE MORNING Authorizing Provider: CLARISSE MERAZ Ordering User: ARLEN WITT * Telephone Encounter - Arlen Witt RPh - 12/23/2023 2:24 PM EDT [facility] is currently not authorized to approve refills for the pended medication(s) per refill protocol. Please approve if appropriate. Thanks, Arlen Witt, PharmD Clinical Pharmacist Centralized Clinical Pharmacy Services ([facility]) [phone] 12/23/2023 2:24 PM * Telephone Encounter - Arlen Witt RPh - 12/23/2023 2:22 PM EDT Pending Prescriptions: Disp Refills Cyclobenzaprine HCl 10 MG Oral Tablet (Fl*60 Tab*1 Sig: TAKE ONE TABLET BY MOUTH TWO TIMES A DAY NEEDED FOR MUSCLE SPASMS Loratadine 10 MG Oral Tablet (Claritin) [*90 Tab*3 Sig: TAKE 1 TABLET BY MOUTH EVERY DAY IN THE MORNING Last Visit: 10/26/2023 (in office), Visit date not found (telemedicine) Next Visit: 02/26/2024 If no future appointments scheduled, and last appointment is greater than a year ago, please schedule patient for a follow-up appointment Last date the medication was ordered: 09/17, 05/25 Pharmacy: [id number] [address] [facility] Is this request for a controlled substance? No Urine Drug Screen:No results found for this or any previous visit. Patient Phone Numbers Labs: Lab Results Component Value Date/Time CREAT 0.9 10/26/2023 11:34 AM CREAT 0.9 11/22/2019 10:20 AM POTASSIUM 4.0 10/26/2023 11:34 AM POTASSIUM 5.1 11/22/2019 10:20 AM TSH 3.00 05/27/2022 12:17 PM TSH 2.25 08/06/2018 12:19 PM LDLCALC 68 10/26/2023 11:34 AM LDLCALC 82 11/22/2019 10:20 AM ALT 21 10/26/2023 11:34 AM ALT 13 11/22/2019 10:20 AM HGBA1C 5.3 11/26/2021 11:34 AM HGBA1C 5.4 08/06/2018 12:19 PM documented in this encounter Plan of Treatment Upcoming Encounters Date Type Department Care Team (Late st Contact Info) Description 02/26/2024 11:40 AM EDT Office Visit [facility] [address] [facility] [place] [address] Clarisse Meraz MD [address], [place] [id number] Scheduled Procedures Name Priority Associated Diagnoses Date/Ti [...] 10/03/2020 Depression Monitoring 12/15/2020 12/16/2019 COVID-19 Vaccine (4 - season) 2023 07/01/2022, 07/01/2022, 09/13/2020, Additional [...] as of this encounter Visit Diagnoses Diagnosis Depression with anxiety Dysthymic disorder Left-sided low back pain with left-sided sciatica, unspecified chronicity Venous insufficiency Unspecified venous (peripheral) insufficiency Edema, unspecified type Allergic rhinitis, unspecified seasonality, unspecified trigger Mixed dyslipidemia Mixed hyperlipidemia documented in this encounter Care Teams Stockbroker Relationship Specialty Start Date End Date Michelle De Luna MD [address] [place] [address] PCP - General Internal Medicine 11/13/23 documented as of this encounter
--- OUTSIDE RECORDS SUMMARY | 2024-03-30 14:53 | External Medical Summary | Summary of Care ---
Author Name Unknown Organization [facility] Address [address] [place] [address] Phone [phone] Care Team Providers Care University Relations Recruiter Name Role Phone Michelle De Luna MD Primary Care Provider Encounter Details Date Type Department Care Team (Late st Contact Info) Description 10/19/2023 Telephone [facility] [address] [place] [address] Faizan Chicas MD [address] [place] [address] Allergies Active Allergy Reactions Criticality Noted Date Comments Sulfamethoxazole-Trimeth oprim Itching,Rash 06/07/2016 Mild rash and itching, not hives. Ciprofloxacin Other (Please comment) Medium 02/29/2016 Lightheaded and dizzy Fluticasone Propionate 04/07/2016 burning Lisinopril Other (Please comment) 07/31/2022 Angioneurotic reaction documented as of this encounter (statuses as of 11/18/2023) Medications Medication Sig Dispensed Refills Start Date [...] as of this encounter (statuses as of 11/18/2023) Active Problems Problem Noted Date Diagnosed Date [...] as of this encounter (statuses as of 11/18/2023) Resolved Problems Problem Noted Date Diagnosed Date [...] as of this encounter (statuses as of 11/18/2023) Immunizations Name Administration Dates Next Due COVID-19 [...] encounter Miscellaneous Notes * Telephone Encounter - Jhoan Molina MED ASSIST - 10/19/2023 2:31 PM EDT Received paperwork for certification of disability form, placed on dr desk documented in this encounter Plan of Treatment Upcoming Encounters Date Type Department Care Team (Late st Contact Info) Description 11/27/2023 11:45 AM EDT Imaging Radiology [address] [place] [address] 02/26/2024 11:40 AM EDT Office Visit [address] [place] [id number] Marlon Umanzor MD [address] [place] [address] Scheduled Procedures Name Priority Associated Diagnoses Date/Ti [...] 10/03/2020 Depression Monitoring 12/15/2020 12/16/2019 COVID-19 Vaccine (2022- season) 2023 07/01/2022, 07/01/2022, 09/13/2020, Additional history [...] filedocumented as of this encounter Care Teams University Relations Recruiter Relationship Specialty Start Date End Date Michelle De Luna MD [address] [place] [address] PCP - General Internal Medicine 11/13/23 documented as of this encounter
--- OUTSIDE RECORDS SUMMARY | 2024-03-30 14:53 | External Medical Summary ---
Author Name Unknown Address Unknown Organization K01:LABORATORY [facility] - [address] [place] [address] Laboratory Report Ordering Provider Test Date Status ERICK BREWER 10/26/2023 11:34:45 Final Observation Date Value Abnormality Reference (Units ) Status MYCODE SPECIMEN-SST 10/26/2023 11:34:45 Freezing of extracted DNA, whole blood and/or serum. Final Performing Location LABORATORY [facility] - [address] [place] [address]
--- OUTSIDE RECORDS SUMMARY | 2024-03-30 14:53 | External Medical Summary | Summary of Care ---
Author Name Unknown Organization [facility] Address [address] [place] [address] Phone [phone] Care Team Providers Care Lead Software Test Engineer Name Role Phone Faizan Chicas MD Primary Care Provider [phone] Reason for Visit * Reason Comments Outpatient Testing Encounter Details Date Type Department Care Team (Late st Contact Info) Description 10/26/2023 11:40 AM EDT Laboratory Laboratory, [place] [address] [place] [address] [place], [facility] [address] [place] [address] [email or web address] Other*[id number]; HTN, goal below 130/80; Hyperlipidemia, unspecified hyperlipidemia type Allergies Active Allergy Reactions Criticality Noted [...] No 08/28/2023 Does the household have a [facility] source of income? (Household - for ages [...] Description 11/27/2023 11:45 AM EDT Imaging Radiology [address] [place] [address] 02/26/2024 11:40 AM EDT Office Visit [facility] [address] [place] [phone] Marlon Umanzor MD [address] [place] [id number] Pending Results Name Type Priority Associated Diagnoses Date /Time MYCODE SUBSEQUENT ADULT Lab Routine [employer] Other*[id number] 10/26/2023 11:34 AM EDT COMPREHENSIVE METABOLIC PANEL Lab Routine HTN, goal below 130/80 10/26/2023 11:34 AM EDT CBC Lab Routine HTN, goal below 130/80 10/26/2023 11:34 AM EDT LIPID PANEL WITH DIRECT LDL IF TG IS HIGH Lab Routine Hyperlipidemia, unspecified hyperlipidemia type 10/26/2023 11:34 AM EDT MYCODE SST1 Lab Routine [employer] Other*[id number] 10/26/2023 11:34 AM EDT MYCODE SST2 Lab Routine [employer] Other*[id number] 10/26/2023 11:34 AM EDT Scheduled Procedures Name Priority Associated Diagnoses Date/Ti [...] 09/13/2020, Additional history exists Mammogram 01/09/2023 01/09/2022, 07/11/2021, 03/27/2020, Additional history exists GFR 08/26/2023 08/25/2022, [...] this encounter Visit Diagnoses Diagnosis [employer] Other*[id number] HTN, goal below 130/80 Unspecified essential hypertension Hyperlipidemia, unspecified hyperlipidemia type documented in this encounter Care Teams Lead Software Test Engineer Relationship Specialty Start Date End Date Faizan Chicas MD [address] [place] [address] PCP - General Family Medicine 06/27/20 documented as of this encounter
--- OUTSIDE RECORDS SUMMARY | 2024-03-30 14:53 | External Medical Summary ---
Author Name Unknown Address Unknown Organization K01:LABORATORY [facility] [place] - [address] [facility] [address] Laboratory Report Ordering Provider Test Date Status CLARISSE,10/26/2023 11:34:45 Final Observation Date Value Abnormality Reference (Units ) Status Triglyceride 10/26/2023 11:34:45 143 <=174 ( mg/dL) Final Triglyceride Reference Range s (mg/dL):
<150 Acceptable
150-174 Borderline high
175-499 High
>=500 Very high Cholesterol 10/26/2023 11:34:45 154 <200 (mg /dL) Final Total Cholesterol Reference Ranges (mg/dL):
<200 Desirable
200-239 Borderline high
>=240 High HDL 10/26/2023 11:34:45 57 >49 (mg/dL ) Final HDL Cholesterol Reference Ra nges (mg/dL):
>=60 High (Desirable)
<50 Low (Undesirable) For Females
<40 Low (Undesirable) For Males NON-HDL CHOLESTEROL 10/26/2023 11:34:45 97 <=159 (mg/dL) Final Non-HDL Cholesterol Referenc e Range (mg/dL):
<100 Target level for high risk ASCVD patient
<130 Optimal for general population
130-159 Near optimal for general population
160-189 Borderline High
190-219 High
>=220 Very High LDL, (calculated) 10/26/2023 11:34:45 68 <= 129 (mg/dL) Final LDL Cholesterol Reference Ra nges (mg/dL):
<70 Target level for high risk ASCVD patient
<100 Optimal for general population
100-129 Near optimal for general population
130-159 Borderline high
160-189 High
>=190 Very high Performing Location LABORATORY [facility] [place] - [address] [place], [place] [address]
--- NOTE | 2024-03-30 16:42 | Communication Note ---
Date of Service: March 30, 2024 Pt was seen and examined at bedside. 53-year-old F with PMH of hyperlipidemia, venous insufficiency, hypertension, morbid obesity, GERD, urge incontinence, primary osteoarthritis of left knee, depression with anxiety, currently using a walker since summer because of the swelling in the legs and being wobbly because of the hip and knee pains comes this time with shortness of breath with chest pain and found to have extensive pulmonary embolism in ED. When she came in she was tachycardic. Oxygen was 88% on room air. She is being managed for the following: Bilateral pulmonary embolism Presents with chest pain, shortness of breath and tachycardia and was requiring O2 at presentation. Admitting CTA chest with moderate to large bilateral pulmonary emboli burden with right heart strain. BLE venous Doppler negative for acute DVT. Troponin elevated at 640 at presentation, down trended. Echo with EF of 60 to 65%, grade 1 diastolic dysfunction, right ventricle mildly dilated. Patient was started on heparin drip, continues to feel better with shortness of breath and chest pain. Patient would like to be started on Eliquis if her insurance supports. Will send Eliquis for cost assessment. Pulmonology evaluated, appreciate recommendation. Outpatient sleep evaluation upon discharge. Other chronic medical conditions: Continue with/resume home meds as when able. Morbid obesitycounseled regarding weight loss. Nutrition follow-up. Ambulatory dysfunction: Uses walker. PT/OT. Hypertension: Amlodipine and hydrochlorothiazide and Lasix. Resume blood pressure medications as able. Venous insufficiency: On Lasix. Hyperlipidemia: On statin Depression with anxiety: On Zoloft DVT prophylaxis: On IV heparin Disposition: Telemetry, PT/OT. CM to assist with DC planning. Full code for detailed information on the patient, refer to today's H&P note.
[2024-03-31 06:44] LABS: Hematocrit (blood only) 36.6 % (37.0-47.0); Hemoglobin 11.7 g/dl (12.0-16.0); Mean Corpuscular Hemoglobin 29.6 pg (25.0-34.0); Mean Corpuscular Volume 92.7 fL (80.0-100.0); Mean Platelet Volume 9.7 fL (9.4-12.4); Platelet Count 253 K/uL (130-400); RDW Coefficient of Variation 12.8 % (11.5-14.5); RDW Standard Deviation 43.8 fL (36.4-46.3); Red Blood Count 3.95 M/uL (4.20-5.40); White Blood Count 9.98 K/ul (4.8-10.8)
[2024-03-31 07:07] LABS: BUN Creatinine Ratio 24.4 (10-20); Calcium 8.7 mg/dl (8.6-10.3); Creatinine Clr Calc Pharmacy 98.1 ml/min; Magnesium 1.8 mg/dl (1.7-2.4); Phosphorus 3.5 mg/dl (2.5-4.9); Potassium 4.1 mmol/L (3.5-5.1)
--- NOTE | 2024-03-31 08:03 | Pulmonology Progress Note ---
Date of Service March 31, 2024 Assessment & Plan (1) Bilateral pulmonary embolism: (2) Morbid obesity with BMI of 50.0-59.9, adult: Plan Impression: 53-year-old morbidly obese female with extensive family history of thromboembolic disease presents now with acute PE. She is hemodynamically stable and improving on heparin. Recommendations: 1. Idiopathic PE: Echo reviewed. No profound RV strain and no evidence of pulmonary hypertension. Responding favorably to heparin. Okay to transition to DOAC. Hospitalist working on verification for insurance. Given idiopathic nature, would recommend lifelong anticoagulation. No indication for continued bedrest and liberalize activity to ad tay. The patient needs to get up and move around to assess whether or not she is short of breath with physical activity as well to assess as to whether or not she needs supplemental oxygen at discharge. 2. Hypoxemia: Continue to wean oxygen as tolerated. Keep oxygen saturations at or above 90%. Patient will require assessment for supplemental oxygen prior to discharge. 3. Outpatient evaluation for sleep disordered breathing may be warranted. Patient significantly improved currently. Anticipate she may be able to be discharged from the hospital within the next 2 to 3 days. Management of her other medical issues per the primary admitting service. Pulmonary will sign off. Feel free to contact us with questions or concerns Admission and Anticipated Discharge Date Admission Date: March 30, 2024 Subjective Patient seen and examined. EMR reviewed. The patient reports she is doing well. Her shortness of breath continues to improve. She has been placed on bedrest so cannot really tell whether or not her shortness of breath is worse with ambulation. She is not coughing or expectorating phlegm. She has not had any bleeding issues. No hemoptysis. Review of Systems 2 Review of Systems: All systems reviewed & are unremarkable except as noted in Subjective Physical Exam 2 Constitutional: WD/WN, vitals as above Neck: trachea midline, no thyromegaly Respiratory: normal respiratory effort, lungs clear to auscultation Cardiovascular: RRR, no murmur, no edema Gastrointestinal (Abdomen): normal bowel sounds, soft, nontender, no hepatosplenomegaly Musculoskeletal: Extremities: extremities normal to inspection Skin: no rashes, warm and dry Lymphatic: no cervical lymphadenopathy Results & Data Results & Data Vital Signs (Past 12 Hours) Vital Signs Temp Pulse Pulse Resp BP Pulse Ox O2 Del Method 03/31/24 03:14 36.6 C 82 18 141/83 H 98 Nasal Cannula 03/30/24 22:52 36.7 C 90 18 138/79 97 Nasal Cannula 03/30/24 21:51 85 03/30/24 20:01 Nasal Cannula O2 Flow Rate 03/31/24 03:14 2.0 03/30/24 22:52 2.0 03/30/24 21:51 03/30/24 20:01 2 Laboratory Results 03/31/24 06:14 03/31/24 06:14 Diagnostic Findings Echocardiogram 03/30/2024 showed a technically difficult study with a normal left ventricular size with concentric LVH. EF was 60 to 65%. Grade 1 diastolic dysfunction was noted. Right ventricle was mildly dilated. No suggestion of pulmonary hypertension based on assessment of TR jet. PG Care Time/CCT Total # of Minutes Spent Total Time Spent with Patient: Total time spent is greater than 50% in coordination of care (as documented) at patient's floor/unit and/or counseling patient: Coding Level of Care Code 39474 SUB INP/OBS CARE 2/35MIN Diagnoses Bilateral pulmonary embolism I26.99 Morbid obesity with BMI of 50.0-59.9, adult E66.01; Z68.43
--- NOTE | 2024-03-31 11:52 | Electrocardiogram Report ---
Test Reason : Blood Pressure : */* mmHG Vent. Rate : 86 BPM Atrial Rate : 86 BPM P-R Int : 152 ms QRS Dur : 88 ms QT Int : 360 ms P-R-T Axes : 42 22 32 degrees QTcB Int : 431 ms Normal sinus rhythm Normal ECG When compared with ECG of 30-Mar-2024 07:12, (unconfirmed) No significant change was found Confirmed by Deni Gonzalez ([id number]) on 03/31/2024 11:51:43 AM Referred By: REFERRED SELF Confirmed By: Deni Gonzalez
--- NOTE | 2024-03-31 15:05 | Hospitalist Progress Note ---
Date of Service March 31, 2024 Assessment & Plan (1) Bilateral pulmonary embolism: Plan 53-year-old F with PMH of hyperlipidemia, venous insufficiency, hypertension, morbid obesity, GERD, urge incontinence, primary osteoarthritis of left knee, depression with anxiety, currently using a walker since summer because of the swelling in the legs and being wobbly because of the hip and knee pains comes this time with shortness of breath with chest pain and found to have extensive pulmonary embolism in ED. When she came in she was tachycardic. Oxygen was 88% on room air. She is being managed for the following: Bilateral pulmonary embolism Presents with chest pain, shortness of breath and tachycardia and was requiring O2 at presentation. Admitting CTA chest with moderate to large bilateral pulmonary emboli burden with right heart strain. BLE venous Doppler negative for acute DVT. Troponin elevated at 640 at presentation, down trended. Echo with EF of 60 to 65%, grade 1 diastolic dysfunction, right ventricle mildly dilated. Patient was started on heparin drip, continues to feel better with no shortness of breath and chest pain now. Patient would like to be started on Eliquis if her insurance supports. Sent Eliquis for cost assessment, pharmacy closed today per CM, follow dipak. Pulmonology evaluated, appreciate recommendation. Outpatient sleep evaluation upon discharge. Other chronic medical conditions: Continue with/resume home meds as when able. Morbid obesitycounseled regarding weight loss. Nutrition follow-up. Ambulatory dysfunction: Uses walker. PT/OT. Hypertension: Amlodipine and hydrochlorothiazide and Lasix. Resume blood pressure medications as able. Venous insufficiency: On Lasix. Hyperlipidemia: On statin Depression with anxiety: On Zoloft DVT prophylaxis: On IV heparin Disposition: Telemetry, PT/OT. CM to assist with DC planning. Full code Admission and Anticipated Discharge Date Admission Date: March 30, 2024 Subjective Patient was seen and examined at bedside. Patient was lying in bed, on 2 L oxygen via nasal cannula, NAD, resting comfortably. Patient reports eating okay and moving bowels okay. Patient denies any chest pain or shortness of breath. Patient reports feeling better. Physical Exam Physical Exam: General- Not in distress Head- atraumatic Eyes- PERRL. ENT- oropharynx clear Neck- supple, no JVD. Lungs- clear to auscultation no wheezing or crackles Heart- regular rate and rhythm; no murmur, no gallop. Abdomen- normal bowel sounds, soft, nontender, no distension Extremities- b/l lower extremity trace edema present. no erythema noted. Neuro- alert, oriented PERRL, no facial palsy; no dysarthria; moves extremities. Results & Data Results & Data Vital Signs (Past 12 Hours) Vital Signs Temp Pulse Resp BP Pulse Ox O2 Del Method O2 Flow Rate 03/31/24 11:12 37.2 C 84 18 138/87 97 Nasal Cannula 2.0 03/31/24 07:22 37.2 C 79 18 121/75 98 Nasal Cannula 2.0 03/31/24 03:14 36.6 C 82 18 141/83 H 98 Nasal Cannula 2.0
[2024-04-01 06:10] LABS: Hematocrit (blood only) 37.8 % (37.0-47.0); Hemoglobin 12.3 g/dl (12.0-16.0); Mean Corpuscular Hemoglobin 29.9 pg (25.0-34.0); Mean Corpuscular Hgb Conc 32.5 g/dL (32.0-36.0); Mean Corpuscular Volume 91.7 fL (80.0-100.0); Mean Platelet Volume 9.7 fL (9.4-12.4); Platelet Count 286 K/uL (130-400); RDW Coefficient of Variation 12.7 % (11.5-14.5); RDW Standard Deviation 42.8 fL (36.4-46.3); Red Blood Count 4.12 M/uL (4.20-5.40); White Blood Count 8.44 K/ul (4.8-10.8)
[2024-04-01 06:35] LABS: BUN Creatinine Ratio 19.5 (10-20); Calcium 9.2 mg/dl (8.6-10.3); Creatinine Clr Calc Pharmacy 102.6 ml/min; Potassium 3.7 mmol/L (3.5-5.1)
[2024-04-01 06:36] LABS: ANTI-Xa, UFH(UnfractionatedHep 0.32 IU/ml (0.3-0.7)
--- NOTE | 2024-04-01 16:20 | Hospitalist Progress Note ---
Date of Service April 01, 2024 Assessment & Plan (1) Bilateral pulmonary embolism: Plan 53-year-old F with PMH of hyperlipidemia, venous insufficiency, hypertension, morbid obesity, GERD, urge incontinence, primary osteoarthritis of left knee, depression with anxiety, currently using a walker since summer because of the swelling in the legs and being wobbly because of the hip and knee pains comes this time with shortness of breath with chest pain and found to have extensive pulmonary embolism in ED. When she came in she was tachycardic. Oxygen was 88% on room air. She is being managed for the following: Bilateral pulmonary embolism Presents with chest pain, shortness of breath and tachycardia and was requiring O2 at presentation. Admitting CTA chest with moderate to large bilateral pulmonary emboli burden with right heart strain. BLE venous Doppler negative for acute DVT. Troponin elevated at 640 at presentation, down trended. Echo with EF of 60 to 65%, grade 1 diastolic dysfunction, right ventricle mildly dilated. Patient was started on heparin drip, continues to feel better with no shortness of breath and chest pain now. Eliquis is $0 a month per CM, will stop heparin drip 8 pm today, start eliquis from evening of 04/01. Pulmonology evaluated, appreciate recommendation. Outpatient sleep evaluation upon discharge. Other chronic medical conditions: Continue with/resume home meds as when able. Morbid obesitycounseled regarding weight loss. Nutrition follow-up. Ambulatory dysfunction: Uses walker. PT/OT. Hypertension: Amlodipine and hydrochlorothiazide and Lasix. Resume blood pressure medications as able. Venous insufficiency: On Lasix. Hyperlipidemia: On statin Depression with anxiety: On Zoloft DVT prophylaxis: On IV heparin Disposition: Telemetry, PT/OT. CM to assist with DC planning. Full code Admission and Anticipated Discharge Date Admission Date: March 30, 2024 Subjective Patient was seen and examined at bedside. Patient was sitting up in chair, on 2 L oxygen via nasal cannula, NAD, resting comfortably. Patient reports eating okay and moving bowels okay. Patient denies any chest pain or shortness of breath. Patient reports feeling better. d/w window caser, cost for eliquis is zero dollars a month. Physical Exam Physical Exam: General- Not in distress Head- atraumatic Eyes- PERRL. ENT- oropharynx clear Neck- supple, no JVD. Lungs- clear to auscultation no wheezing or crackles Heart- regular rate and rhythm; no murmur, no gallop. Abdomen- normal bowel sounds, soft, nontender, no distension Extremities- b/l lower extremity trace edema present. no erythema noted. Neuro- alert, oriented PERRL, no facial palsy; no dysarthria; moves extremities. Results & Data Results & Data Vital Signs (Past 12 Hours) Vital Signs Temp Pulse Resp BP Pulse Ox O2 Del Method O2 Flow Rate 04/01/24 15:13 36.4 C L 82 18 117/73 99 Nasal Cannula 2 04/01/24 10:59 36.4 C L 83 18 143/84 H 98 Nasal Cannula 3 04/01/24 07:42 36.6 C 75 18 139/84 99 Nasal Cannula 3
[2024-04-01] MEDS: APIXABAN 5 MG TABLET PO SCH (20:29)
[2024-04-01] MEDS: SERTRALINE HCL 50 MG TABLET PO SCH (20:43)
[2024-04-02 07:14] LABS: Hematocrit (blood only) 36.7 % (37.0-47.0); Mean Corpuscular Hemoglobin 29.5 pg (25.0-34.0); Mean Corpuscular Hgb Conc 32.7 g/dL (32.0-36.0); Mean Corpuscular Volume 90.2 fL (80.0-100.0); Mean Platelet Volume 9.6 fL (9.4-12.4); Platelet Count 281 K/uL (130-400); RDW Coefficient of Variation 12.7 % (11.5-14.5); RDW Standard Deviation 41.7 fL (36.4-46.3); Red Blood Count 4.07 M/uL (4.20-5.40); White Blood Count 7.54 K/ul (4.8-10.8)
[2024-04-02 07:39] LABS: BUN Creatinine Ratio 18.6 (10-20); Calcium 9.2 mg/dl (8.6-10.3); Creatinine Clr Calc Pharmacy 99.2 ml/min
--- NOTE | 2024-04-02 07:39 | Electrocardiogram Report ---
Test Reason : Blood Pressure : */* mmHG Vent. Rate : 75 BPM Atrial Rate : 75 BPM P-R Int : 156 ms QRS Dur : 88 ms QT Int : 400 ms P-R-T Axes : 52 30 49 degrees QTcB Int : 447 ms Normal sinus rhythm Normal ECG When compared with ECG of 31-Mar-2024 04:56, No significant change was found Confirmed by Deni Gonzalez ([id number]) on 04/02/2024 7:39:50 AM Referred By: REFERRED SELF Confirmed By: Deni Gonzalez
[2024-04-02] MEDS: POLYETHYLENE (MIRALAX) 17 GM PACK PO PRN (08:13)
[2024-04-02 08:22] LABS: Potassium 4.2 mmol/L (3.5-5.1)
[2024-04-02 11:09] VITALS: RESP 19
--- NOTE | 2024-04-02 14:41 | Hospitalist Progress Note ---
Date of Service April 02, 2024 Assessment & Plan (1) Bilateral pulmonary embolism: Plan 53-year-old F with PMH of hyperlipidemia, venous insufficiency, hypertension, morbid obesity, GERD, urge incontinence, primary osteoarthritis of left knee, depression with anxiety, currently using a walker since summer because of the swelling in the legs and being wobbly because of the hip and knee pains comes this time with shortness of breath with chest pain and found to have extensive pulmonary embolism in ED. When she came in she was tachycardic. Oxygen was 88% on room air. She is being managed for the following: Bilateral pulmonary embolism Presents with chest pain, shortness of breath and tachycardia and was requiring O2 at presentation. Admitting CTA chest with moderate to large bilateral pulmonary emboli burden with right heart strain. BLE venous Doppler negative for acute DVT. Troponin elevated at 640 at presentation, down trended. Echo with EF of 60 to 65%, grade 1 diastolic dysfunction, right ventricle mildly dilated. S/p heparin drip, continues to feel better with no shortness of breath and chest pain now. Transitioned to eliquis 10 mg bid 04/01 evening, c/w eliquis for acute dvt/pe. Eliquis is $0 a month per CM, pt agreeable for cost. Pulmonology evaluated, appreciate recommendation. Outpatient sleep evaluation upon discharge. Other chronic medical conditions: Continue with/resume home meds as when able. Morbid obesitycounseled regarding weight loss. Nutrition follow-up. Ambulatory dysfunction: Uses walker. PT/OT. Hypertension: Amlodipine and hydrochlorothiazide and Lasix. Resume blood pressure medications as able. Venous insufficiency: On Lasix. Hyperlipidemia: On statin Depression with anxiety: On Zoloft DVT prophylaxis: On IV heparin Disposition: Telemetry, PT/OT. CM to assist with DC planning/transport issues. Once resolved, i can dc the patient. Full code Admission and Anticipated Discharge Date Admission Date: March 30, 2024 Subjective Patient was seen and examined at bedside. Patient was sitting up in bed, on RA, NAD, resting comfortably. Patient reports eating okay and moving bowels okay. Patient denies any chest pain or shortness of breath. Patient reports feeling better. d/w case therapist, they will help w/ transport issues to help w/ dc plan. Physical Exam Physical Exam: General- Not in distress Head- atraumatic Eyes- PERRL. ENT- oropharynx clear Neck- supple, no JVD. Lungs- clear to auscultation no wheezing or crackles Heart- regular rate and rhythm; no murmur, no gallop. Abdomen- normal bowel sounds, soft, nontender, no distension Extremities- b/l lower extremity trace edema present. no erythema noted. Neuro- alert, oriented PERRL, no facial palsy; no dysarthria; moves extremities. Results & Data Results & Data Vital Signs (Past 12 Hours) Vital Signs Temp Pulse Pulse Pulse Pulse Resp Resp 04/02/24 11:08 36.8 C 82 19 04/02/24 09:16 79 04/02/24 08:04 117 H 88 22 04/02/24 07:13 36.8 C 81 19 04/02/24 03:05 36.8 C 83 18 Resp BP Pulse Ox Pulse Ox Pulse Ox O2 Del Method O2 Flow Rate 04/02/24 11:08 130/86 94 Room Air 04/02/24 09:16 04/02/24 08:04 18 93 95 04/02/24 07:13 134/73 96 Nasal Cannula 2 04/02/24 03:05 123/76 96 Nasal Cannula 3.0
[2024-04-02 15:14] VITALS: PULSE 79; TEMP 97.9; O2SAT 96
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
[2024-04-02 17:54] VITALS: BP 132/84
--- NOTE | 2024-04-05 12:51 | Electrocardiogram Report ---
Test Reason : Blood Pressure : */* mmHG Vent. Rate : 99 BPM Atrial Rate : 99 BPM P-R Int : 142 ms QRS Dur : 88 ms QT Int : 378 ms P-R-T Axes : 51 27 59 degrees QTcB Int : 485 ms Normal sinus rhythm Prolonged QT Abnormal ECG When compared with ECG of 29-Mar-2024 16:02, No significant change was found Confirmed by Landon Massey ([id number]) on 04/05/2024 12:51:30 PM Referred By: REFERRED SELF Confirmed By: Landon Massey
== END 2024-04-02 18:16 | disposition home or self-care (01) | DRG 176 ==
LOC: ED 15:50 → 2S 03-30 00:12